=== PATIENT | female | born 1965 | race African-American/Black ===

== ENCOUNTER 2019-10-12 23:19 | Emergency (ER) | payer OTHER, SELFPAY ==
[2019-10-12 23:21] VITALS: BP 161/92; PULSE 100; RESP 16; TEMP 36.2; O2SAT 100
[2019-10-13 00:07] VITALS: BP 168/92; PULSE 87; RESP 18; TEMP 36.8; O2SAT 98
--- NOTE | 2019-10-13 00:53 | ED.GENADULT ---
HPI - General Adult General Chief complaint: Wound/Laceration Stated complaint: boil Time Seen by Provider: 10/13/19 00:21 Source: patient Mode of arrival: ambulatory Limitations: no limitations History of Present Illness HPI narrative: Patient is here for evaluation of a abscess that is formed on her mons pubis. She said it started several days ago she has been doing sitz bath's at home and has gotten it to open and drain a little bit but it is become quite painful. She denies any fever she does complain of some nausea. Onset (ago): day(s) Location: genitals Radiation: non-radiation Severity: moderate Quality: sharp Pain Consistency: constant Relieving factors: none Associated symptoms: nausea/vomiting Treatments prior to arrival: NSAID Related Data Allergies Allergy/AdvReac Type Severity Reaction Status Date / Time No Known Allergies Allergy Unknown Verified 11/01/15 14:15 Review of Systems Review of Systems: All systems reviewed & are unremarkable except as noted in HPI and below PMFSH Social History Social History Gender identity (if verbalized by the patient): Female Exam Const: General: no acute distress and alert Orientation/consciousness: patient oriented x3 Resp: Effort & Inspection: normal respiratory effort Auscultation: clear to auscultation bilaterally Cardio: Rate: regular rate Rhythm: regular rhythm GI: GI Palp: Yes Soft to palpation Skin: General skin exam: normal color Lesions: lesion noted (firm abscess on the mons pubis, there is an open area in the center) Full body images: 1. firm abscess, open in center with mild fluctuance. Unable to express any material. Neuro: General: patient oriented x3 and moves all extremities Extrem: General: normal to inspection Course Course Emergency Course: Give patient dose of antibiotics here tonight and asked that she start the course tomorrow morning approximately 9 AM. She is to follow-up with her upsetter for further I&D, there is packing in place and she was given instructions for care. Vital Signs Vital signs: Vital Signs Temperature 36.2 C L 10/12/19 23:21 Pulse Rate 100 10/12/19 23:21 Respiratory Rate 16 10/12/19 23:21 Blood Pressure 161/92 H 10/12/19 23:21 Pulse Oximetry 100 10/12/19 23:21 Temperature 36.8 C 10/13/19 00:07 Pulse Rate 87 10/13/19 00:07 Respiratory Rate 18 10/13/19 00:07 Blood Pressure 168/92 H 10/13/19 00:07 Pulse Oximetry 98 10/13/19 00:07 Procedures Abscess I/D mons pubis: Date of Incision: 10/13/19 Time of Incision: 01:45 Sedation/analgesia: other (tramadol) Local Anesthetic: none (LET) Technique: incised with #11 blade Amount of fluid expressed (mL): 1 Packing used?: iodoform (1/4 in, approx 3 in) I&D Results: Pus and Blood Complications: pain Medical Decision Making Vital Signs Vital Signs: Vital Signs Temperature 36.2 C L 10/12/19 23:21 Pulse Rate 100 10/12/19 23:21 Respiratory Rate 16 10/12/19 23:21 Blood Pressure 161/92 H 10/12/19 23:21 Pulse Oximetry 100 10/12/19 23:21 Temperature 36.8 C 10/13/19 00:07 Pulse Rate 87 10/13/19 00:07 Respiratory Rate 18 10/13/19 00:07 Blood Pressure 168/92 H 10/13/19 00:07 Pulse Oximetry 98 10/13/19 00:07 Discharge Plan Discharge Clinical Impression: Abscess Patient Disposition: Home, Self-Care Condition: Stable Instructions: Antibiotic Form, Abscess (ED) Additional Instructions: May pull packing out a little bit at a time every day until it comes out. Apply warm wet compresses to the area several times a day. Complete the antibiotics as prescribed, start the prescription in the morning. Take Ibuprofen or Tylenol for pain. Follow-up with your upsetter for further care and possible referral to a surgeon. Prescriptions: New sulfamethoxazole-trimethop
[2019-10-13] MEDS: TRAMADOL HCL 50 MG TABLET PO (01:14)
[2019-10-13 01:29] VITALS: BP 166/84; PULSE 86; RESP 18; O2SAT 100
[2019-10-13 02:24] VITALS: BP 154/85; PULSE 81; RESP 16; TEMP 36.9; O2SAT 100
== END 2019-10-13 02:25 | disposition home or self-care (01) ==
PROVIDERS: Emergency Provider Emergency Medicine; PCP Family Medicine
DX: L02.215 Cutaneous abscess of perineum (principal)
CPT/HCPCS: 56405; 99283; A9270

== ENCOUNTER 2021-03-27 08:59 | Emergency (ER) | payer OTHER, SELFPAY ==
[2021-03-27 09:03] VITALS: BP 166/106; PULSE 96; RESP 20; TEMP 36.7; O2SAT 100
[2021-03-27 09:07] LABS: Glucose Point of Care 236 mg/dl (65-105)
[2021-03-27 09:20] LABS: Basophils Percent Auto 0.5 % (0.2-1.2); Eosinophils Absolute Auto 0.1 K/mm3 (0-0.3); Eosinophils Percent Auto 0.9 % (0-4.4); Hematocrit 37.6 % (37.0-47.0); Immature Granulocyte Absolute 0.02 K/mm3 (0.00-0.031); Immature Granulocyte Percent A 0.4 % (0-0.5); Lymphocytes Absolute Auto 1.69 K/mm3 (0.9-3.2); Mean Corpuscular HGB Conc 31.9 g/dl (32-36); Mean Corpuscular Hemoglobin 26.5 pg (26-34); Mean Corpuscular Volume 83.2 fl (80-100); Mean Platelet Volume 9.9 fl (7.4-10.4); Monocytes Absolute Auto 0.4 K/mm3 (0.1-0.6); Monocytes Percent Auto 6.9 % (2.6-8.5); Neutrophils Absolute Auto 3.5 K/mm3 (1.3-6.7); Neutrophils Percent Auto 61.3 % (45.5-73.1); Platelet Count Result 256 k/mm3 (150-375); Red Blood Count 4.52 M/mm3 (4.2-5.4); Red Cell Distribution Width 12.9 % (11.5-14.5); White Blood Count 5.6 K/mm3 (4.5-10.0)
[2021-03-27 09:40] LABS: Add Urine Microscopic? YES; Appearance Urine Clear (Clear); Bilirubin Urine Negative (Negative); Blood Urine Negative (Negative); Color Urine Yellow (Yellow); Glucose Urine UA 3+ mg/dL (Negative); Ketones Urine Negative (Negative); Leukocyte Esterase Ur Negative LEU/UL (Negative); Mucus Urine Rare /lpf; Nitrate Urine Negative (Negative); Protein Urine Negative (Negative); RBC Urine 0-2 /hpf (0-2); Specific Grav Ur 1.013 (1.001-1.035); Urobilinogen Urine Negative mg/dL (<2.0); WBC Urine 0-3 /hpf
[2021-03-27 09:41] LABS: Alanine Aminotransferase 12 U/L (4-35); Albumin Level 4.4 g/dL (3.5-5.1); Alkaline Phosphatase 51 U/L (38-126); Anion Gap 9 mmol/L (8-16); Aspartate Amino Transferase 18 U/L (14-36); Bilirubin,Total 0.4 mg/dL (0.2-1.3); Blood Urea Nitrogen 14 mg/dL (7-17); Calcium 9.8 mg/dL (8.4-10.2); Carbon Dioxide 28 mmol/L (22-30); Chloride 100 mmol/L (98-107); Estimated CRCL calculation 85 ml/min; Estimated Glomerular Filt Rate > 60; Glucose 242 mg/dL (65-110); Sodium 137 mmol/L (137-145)
--- NOTE | 2021-03-27 10:04 | ED.RECABL ---
HPI - Recheck/Abnormal Lab/Rx General Chief Complaint: Recheck/Abnormal Lab/Rx Stated Complaint: high blood sugar Time Seen by Provider: 03/27/21 09:37 Source: patient Mode of arrival: ambulatory Limitations: no limitations History of Present Illness HPI narrative: Patient is a 56 year old female who presents with complaints of mild nausea and elevated glucose. Patient reports history of diabetes. She takes Metformin 1000 mg twice daily recently taken off of Jardiance and started on Ozempic approximately 3 weeks ago. She reports blood sugar of over 400 at home. She reports medication compliant. She denies chest pain or shortness of breath. Patient reports elevated glucose is what brought her to the ED. She denies all other complaints at this time. Related Data Home Medications Medication Instructions Recorded Confirmed lisinopril 03/27/21 metformin mg PO 03/27/21 njunvgco-jya-sdulhky fumarate ml PO 03/27/21 [Multi Vitamin] semaglutide [Ozempic] 0.25 mg SUBCUT WEEKLY 03/27/21 03/27/21 Allergies Allergy/AdvReac Type Severity Reaction Status Date / Time No Known Allergies Allergy Unknown Verified 03/27/21 09:07 Review of Systems Review of Systems: CONSTITUTIONAL: Denies fever, chills, or sweats. EYES: Denies visual changes, redness, or discharge. ENT: Denies rhinorrhea, congestion, sore throat, or otalgia. CARDIOVASCULAR: Denies chest pain, palpitations, or edema. RESPIRATORY: Denies cough or dyspnea. GASTROINTESTINAL: Denies abdominal pain, reports mild nausea GENITOURINARY: Denies dysuria or hematuria. SKIN: Denies rash or itching. MUSCULOSKELETAL: Denies back pain, joint pain, or myalgia. NEUROLOGIC: Denies headache, numbness, dizziness, or weakness. PSYCHIATRIC: Denies anxiety or depression. [facility] Past Medical History Medical History (Updated 03/27/21 @ 11:25 by MANJEET Carson) Diabetes HTN (hypertension) Surgical History Surgical History (Updated 03/27/21 @ 10:12 by MANJEET Carson) Hx of cholecystectomy Family History Family History (Updated 03/27/21 @ 10:13 by MANJEET Carson) Other Diabetes mellitus Hypertension Social History Social History (Updated 03/27/21 @ 10:13 by MANJEET aCrson) Smoking status: Never smoker Alcohol intake: never Substance use: never Living arrangements: with family Gender identity (if verbalized by the patient): Female Comments At the time of signature, I have reviewed and agree with nursing past medical, surgical, social, and family history unless otherwise noted. Please see nursing chart for further information. There is no relevant family history pertinent to the presenting complaint. Exam Narrative: GENERAL: Well-appearing, well-nourished, and in no acute distress. HEAD: Normocephalic, atraumatic. EYES: EOMI. No redness or drainage. Conjunctiva are normal. ENT: Mucous membranes pink and moist. NECK: AROM. Supple. No lymphadenopathy. CHEST: No respiratory distress. Clear to auscultation. HEART: Regular rate and rhythm. No murmur appreciated. Normal peripheral pulses. GI: Soft, nontender without rebound, or guarding. No distention. Bowel sounds normal in all quadrants. MUSCULOSKELETAL: No bony tenderness. EXTREMITIES: Normal range of motion. No edema. SKIN: Warm, dry, no rash. NEURO: No focal deficits. Alert and oriented x3. Gait steady. PSYCH: Normal affect. No signs of depression or anxiety. Course Vital Signs Vital signs: Vital Signs Temperature 36.7 C 03/27/21 09:03 Pulse Rate 96 03/27/21 09:03 Respiratory Rate 20 03/27/21 09:03 Blood Pressure 166/106 H 03/27/21 09:03 Pulse Oximetry 100 03/27/21 09:03 Temperature 36.7 C 03/27/21 09:03 Pulse Rate 90 03/27/21 10:31 Respiratory Rate 19 03/27/21 10:31 Blood Pressure 147/90 H 03/27/21 10:31 Pulse Oximetry 100 03/27/21 10:31 MDM - Recheck/Abnormal Lab/Rx MDM Narrative Medical decision making orestes
[2021-03-27] MEDS: ONDANSETRON INJ 4 MG/2 ML VIAL IV PUSH (10:09)
[2021-03-27] MEDS: FAMOTIDINE 20 MG/2 ML VIAL IV PUSH (10:09)
[2021-03-27 10:10] VITALS: BP 139/78; PULSE 91; RESP 17; O2SAT 100
[2021-03-27] MEDS: SODIUM CHLORIDE 0.9% IV 1,000 ML 999 ML IV CONT (10:10)
[2021-03-27] MEDS: ACETAMINOPHEN 500 MG TABLET 1000 MG PO (10:18)
[2021-03-27 10:31] VITALS: BP 147/90; PULSE 90; RESP 19; O2SAT 100
[2021-03-27 11:22] LABS: Glucose Point of Care 179 mg/dl (65-105)
[2021-03-27 11:34] VITALS: BP 147/77; PULSE 91; RESP 17; O2SAT 100
== END 2021-03-27 11:39 | disposition home or self-care (01) ==
PROVIDERS: Emergency Medicine; Emergency Provider Nurse Practitioner; PCP Family Medicine
DX: E11.65 Type 2 diabetes mellitus with hyperglycemia (principal); I10 Essential (primary) hypertension; Z79.84 Long term (current) use of oral hypoglycemic drugs; Z79.899 Other long term (current) drug therapy
CPT/HCPCS: 36415; 80053; 81001; 82948; 85025; 96361; 96374; 96375; 99284; A9270; J2405; J7030

== ENCOUNTER 2022-07-14 16:11 | Emergency (ER) | payer OTHER, SELFPAY ==
--- NOTE | ~2022-07-14 | XR_ITS ---
EXAMINATION: XR chest 1V portable Exam Date/Time: 07/14/2022 16:55 RANGE AIDE HISTORY: cough, fever, BODY ACHES Comparison: 01/11/2021. RESULT: Lines, tubes, and devices: None. Lungs and pleura: Minimal bibasilar atelectasis. No focal consolidation. Cardiomediastinal silhouette: Stable. Other: No acute osseous or upper abdominal finding. IMPRESSION: No acute cardiopulmonary process. Reviewed, dictated and finalized at location K. E AIDE
[2022-07-14 16:17] VITALS: BP 185/87; PULSE 109; RESP 16; TEMP 37.3; O2SAT 100
[2022-07-14] MEDS: ACETAMINOPHEN 500 MG TABLET 1000 MG PO (17:06)
[2022-07-14 17:20] LABS: Influenza A QL RT-PCR Positive (Negative); Influenza B QL RT-PCR Negative (Negative); SARS-CoV-2 RNA PCR Negative
--- NOTE | 2022-07-14 17:34 | ED.URI ---
HPI - URI/Sore Throat General Chief Complaint: Upper Respiratory Infection <Leonila Ba PA-C - Last Filed: 07/14/22 17:38> Stated Complaint: possible influenza <MONICA Zavala Last Filed: 07/14/22 17:38> Time Seen by Provider: 07/14/22 16:34 <MONICA Zavala Last Filed: 07/14/22 17:38> Source: patient <MONICA Zavala Last Filed: 07/14/22 17:38> Mode of arrival: ambulatory <MONICA Zavala Last Filed: 07/14/22 17:38> Limitations: no limitations <MONICA Zavala Last Filed: 07/14/22 17:38> History of Present Illness HPI Narrative: This is a 57-year-old female who presents to the emergency department for cold symptoms present since yesterday. Reports fever, myalgias, malaise, cough, congestion, and sore throat. She is influenza vaccinated. Denies shortness of breath. <MONICA Zavala Last Filed: 07/14/22 17:38> Related Data Home Medications: Home Medications Medication Instructions Recorded Confirmed lisinopril 10 mg tablet 03/27/21 metformin 500 mg tablet,extended mg PO 03/27/21 release 24 hr multivitamin with minerals-iron ml PO 03/27/21 fumarate 9 mg iron/15 mL oral liquid (Multi Vitamin) semaglutide 0.25 mg or 0.5 mg (2 0.25 mg subcut WEEKLY 03/27/21 03/27/21 mg/1.5 mL) subcutaneous pen injector (Ozempic) <MONICA Zavala Last Filed: 07/14/22 17:38> Allergies/Adverse Reactions: Allergies Allergy/AdvReac Type Severity Reaction Status Date / Time No Known Allergies Allergy Unknown Verified 07/14/22 17:07 <MONICA Zavala Last Filed: 07/14/22 17:38> Review of Systems Review of Systems: CONSTITUTIONAL: Reports fever ENT: Reports rhinorrhea, congestion, sore throat RESPIRATORY: Reports cough. Denies dyspnea. <Leonila Ba PA-C - Last Filed: 07/14/22 17:38> All systems reviewed & are unremarkable except as noted in HPI and below <Leonila Ba PA-C - Last Filed: 07/14/22 17:38> PMFSH Past Medical History Medical History: Medical History (Updated 07/14/22 @ 17:37 by Leonila Ba PA-C) Diabetes HTN (hypertension) <Leonila Ba PA-C - Last Filed: 07/14/22 17:38> Surgical History Surgical History: Surgical History (Updated 03/27/21 @ 10:12 by Amber Justice, [employer]) Hx of cholecystectomy <Leonila Ba PA-C - Last Filed: 07/14/22 17:38> Family History Family History: Family History (Updated 03/27/21 @ 10:13 by Amber Justice, [employer]) Other Diabetes mellitus Hypertension <Leonila Ba PA-C - Last Filed: 07/14/22 17:38> Social History Social History: Social History (Updated 03/27/21 @ 10:13 by Amber Justice, [employer]) Smoking status: Never smoker Alcohol intake: never Substance use: never Gender identity (if verbalized by the patient): Female <Leonila Ba PA-C - Last Filed: 07/14/22 17:38> Exam Narrative: GENERAL: Well-appearing, well-nourished, and in no acute distress. HEAD: Normocephalic, atraumatic. EYES: EOMI. ENT: Nares clear, no rhinorrhea or epistaxis. Mucous membranes moist. Oropharynx without tonsillar hypertrophy exudate or other lesions. Bilateral TMs pearly dwyer non-bulging NECK: Supple. No adenopathy or masses. CHEST: Clear to auscultation. No respiratory distress. No wheezes rales or rhonchi HEART: Regular rate and rhythm. No murmur heard. Normal peripheral pulses. EXTREMITIES: Normal range of motion. No edema. SKIN: Warm, dry, no rash. NEURO: No focal deficits. Alert and oriented x3. PSYCH: Normal mood and affect <Leonila Ba PA-C - Last Filed: 07/14/22 17:38> Course CONTINUOUS IMPROVEMENT SPECIALIST/PA Physician Supervision For this patient encounter, I reviewed the CONTINUOUS IMPROVEMENT SPECIALIST or PA documentation, treatment plan, and medical decision making <Deon Adkins MD - Last Filed: 07/14/22 19:42> Vital Signs Vital signs: Vital Signs Temperature 99.1 F 07/14/22 16:17 Pulse Ra
== END 2022-07-14 17:40 | disposition home or self-care (01) ==
PROVIDERS: Emergency Provider Emergency Medicine; PCP Family Medicine
DX: J10.1 Influenza due to other identified influenza virus with other respiratory manifestations (principal); Z20.822 Contact with and (suspected) exposure to COVID-19; E11.9 Type 2 diabetes mellitus without complications; I10 Essential (primary) hypertension; Z79.84 Long term (current) use of oral hypoglycemic drugs
CPT/HCPCS: 71045; 87636; 99283; A9270

== ENCOUNTER 2022-09-06 12:05 | Outpatient (CLI) | payer OTHER, SELFPAY ==
[2022-09-06 12:28] LABS: Basophils Percent Auto 0.6 % (0.2-1.2); Eosinophils Absolute Auto 0.1 K/mm3 (0-0.3); Eosinophils Percent Auto 1.4 % (0-4.4); Hematocrit 37.5 % (37.0-47.0); Immature Granulocyte Absolute 0.03 K/mm3 (0.00-0.031); Immature Granulocyte Percent A 0.4 % (0-0.5); Lymphocytes Absolute Auto 2.29 K/mm3 (0.9-3.2); Lymphocytes Percent Auto 31.9 % (18.3-44.2); Mean Corpuscular Hemoglobin 26.7 pg (26-34); Mean Corpuscular Volume 83.5 fl (80-100); Mean Platelet Volume 9.4 fl (7.4-10.4); Monocytes Absolute Auto 0.5 K/mm3 (0.1-0.6); Monocytes Percent Auto 6.4 % (2.6-8.5); Neutrophils Absolute Auto 4.3 K/mm3 (1.3-6.7); Neutrophils Percent Auto 59.3 % (45.5-73.1); Platelet Count Result 274 k/mm3 (150-375); Red Blood Count 4.49 M/mm3 (4.2-5.4); Red Cell Distribution Width 12.9 % (11.5-14.5); White Blood Count 7.2 K/mm3 (4.5-10.0)
[2022-09-06 12:41] LABS: Hemoglobin A1C 12.3 % (<5.7)
[2022-09-06 13:08] LABS: Creatinine Urine 71.5 mg/dL
[2022-09-06 13:47] LABS: MALB Creatinine Ratio < 8.4 mg/g (0-30); Microalbumin Urine Random < 6.0 mg/L (0-16.7)
== END 2022-09-06 12:06 | disposition home or self-care (01) ==
LOC: ANHLAB 12:11
PROVIDERS: PCP Family Medicine
DX: Z00.00 Encounter for general adult medical examination without abnormal findings (principal); E66.9 Obesity, unspecified; Z68.34 Body mass index [BMI] 34.0-34.9, adult
CPT/HCPCS: 36415; 82043; 83036; 85025

== ENCOUNTER 2022-12-20 12:27 | Outpatient (CLI) | payer OTHER, SELFPAY ==
--- NOTE | ~2022-12-20 | MMUS_ITS ---
EXAMINATION: MM diagnostic kaya BI w alexandra, US breast BI complete HISTORY: Left lateral breast pain, shortness TECHNIQUE: Bilateral full field and spot ML, MLO and CC 3-D tomosynthesis images were performed and s ynthetic 2-D images were generated. Magnification views of upper outer quadrant left breast CAD chris sis was submitted and interpreted. High resolution complete bilateral breast ultrasound examination i ncluding all 4 quadrants and subareolar areas was performed. COMPARISON: None BREAST PARENCHYMAL COMPOSITION: There are scattered areas of fibroglandular density. FINDINGS: MAMMOGRAPHIC FINDINGS: There are occasional bilateral benign calcifications. No malignant calcification is noted. There is an approximately 10 x 14 mm circumscribed mass with calcifications typical of fibroadenoma. No suspicious mass or architectural distortion, microcalcifications, skin thickening or retraction of either breast is noted otherwise. ULTRASOUND: Right breast: No suspicious mass or shadowing or other significant sonographic abnormality Left breast: 2:00 4.5 cm from nipple: Parallel circumscribed 4.2 x 4.1 x 5.6 mm complex lesion, without internal v ascularity or posterior shadowing, probably benign 9:00 4 cm from nipple: Parallel circumscribed approximately 6.8 x 14 mm hypoechoic solid lesion with internal calcifications, no internal vascularity, no suspicious shadowing. 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 No suspicious mass or shadowing of the left breast is noted otherwise. IMPRESSION: 1. Probably benign left breast complex mass at 2:00 4.5 cm from nipple 2. 6 month follow-up ultrasound of left breast at 2:00 4.5 cm from nipple is recommended BI-RADS category 3, probably benign findings. Reviewed, dictated and finalized at location A. IMPRESSION: 1. Probably benign left breast complex mass at 2:00 4.5 cm from nipple 2. 6 month follow-up ultrasound of left breast at 2:00 4.5 cm from nipple is re commended BI-RADS category 3, probably benign findings.
== END 2022-12-20 12:28 | disposition home or self-care (01) ==
LOC: ANHIMG 12:29
PROVIDERS: PCP Family Medicine; Visit Provider Family Medicine
DX: N64.4 Mastodynia (principal); R92.8 Other abnormal and inconclusive findings on diagnostic imaging of breast
CPT/HCPCS: 76641; 77062; 77066; G0279

== ENCOUNTER 2023-01-22 02:55 | Emergency (ER) | payer OTHER, SELFPAY ==
[2023-01-22] VITALS (21 sets, daily range): BP systolic 156–226; BP diastolic 70–98; PULSE 106–132; RESP 15–27; O2SAT 99–100
--- NOTE | ~2023-01-22 | XR_ITS ---
Clinical Indication: Chest pain PA and lateral views of the chest: Comparison: 07/14/2022 Findings: The lungs are clear, without evidence of focal consolidation or pleural effusion. Cardiome diastinal silhouette is within normal limits. Bones and soft tissues are unremarkable. Impression: Normal chest. Reviewed, dictated and finalized at location . Impression: Normal chest.
--- NOTE | ~2023-01-22 | CT_ITS ---
Clinical Indication: Chest pain CT Scan of the Chest with Contrast: Technique: Contiguous sections were acquired throughout the chest after intravenous administration of 100 cc of Omnipaque 350. Dose reduction technique was used on this scan by utilizing automated expos ure control and iterative reconstruction technique. The dose-length product (DLP) was 593.86 mGy-cm. Findings: There is no evidence of any significant mediastinal, hilar or axillary lymphadenopathy. There is no f illing defect in the pulmonary arterial tree to suggest pulmonary embolus. There is no evidence of ao rtic dissection or aneurysm. There is no evidence of pleural or pericardial effusion. The lungs are clear. No pulmonary nodules or infiltrates are noted. Images through the upper abdomen reveal no abnormalities. Impression: No evidence of pulmonary embolus, aortic dissection, or aortic aneurysm. Clear lungs. Reviewed, dictated and finalized at [facility]. Impression: No evidence of pulmonary embolus, aortic dissection, or aortic aneurysm. Clear lungs.
--- NOTE | ~2023-01-22 | CT_ITS ---
Non-contrast Head CT History: Headache Technique: Axial non-contrast imaging of the brain was performed. Dose reduction technique was used on this scan by utilizing automated exposure control and iterative reconstruction technique. The dose -length product (DLP) was 605.33 mGy-cm. Findings: There is no evidence of intracranial hemorrhage, mass lesion, or acute infarct. Brain par enchyma appears normal. The ventricles and subarachnoid spaces are normal in size. The calvarium ap pears normal. The visualized paranasal sinuses and mastoid air cells are clear. Impression: No significant abnormality seen. Reviewed, dictated and finalized at location . Impression: No significant abnormality seen.
--- NOTE | 2023-01-22 02:56 | ECG_ITS ---
Measurements Intervals [place] Rate: 126 P: 3 [place]: 120 QRS: 60 QRSD: 87 T: 29 QT: 311 QTc: 451 Interpretive Statements SINUS TACHYCARDIA BORDERLINE ST ABNORMALITY- ANTEROLATERAL LEADS BASELINE ARTIFACT- I, II, III, AVR, AVL, AVF, V1-V3 ABNORMAL ECG NO PREVIOUS ECG AVAILABLE FOR COMPARISON Electronically Signed On 01-22-2023 6:47:33 CDT by Marcelo Hoover D.O.
--- NOTE | 2023-01-22 03:08 | ED.CHESTPAIN ---
HPI - Chest Pain General Chief Complaint: Chest Pain Stated Complaint: chest pain/palpitations Time Seen by Provider: 01/22/23 02:58 History of Present Illness HPI narrative: Pt is a 57 year old F w/ hx of hypertension, diabetes, GERD presenting with chest pain. Pt states she has had intermittent left sided chest pain for the last few days. States it has been radiating down her left arm and left shoulder since last night. She checked her blood pressure and heart rate at home and both were elevated so she came in for evaluation. States her legs have been swollen for the last two weeks, left more so than the right. Reports exertional dyspnea for several weeks. Denies fevers/chills, vision changes, numbness/weakness, palpitations, abdominal pain, n/v/d, dysuria. Related Data Home Medications Medication Instructions Recorded Confirmed lisinopril 10 mg tablet 03/27/21 metformin 500 mg tablet,extended mg PO 03/27/21 release 24 hr multivitamin with minerals-iron ml PO 03/27/21 fumarate 9 mg iron/15 mL oral liquid (Multi Vitamin) semaglutide 0.25 mg or 0.5 mg (2 0.25 mg subcut WEEKLY 03/27/21 03/27/21 mg/1.5 mL) subcutaneous pen injector (Ozempic) Allergies Allergy/AdvReac Type Severity Reaction Status Date / Time No Known Allergies Allergy Unknown Verified 01/22/23 03:33 Review of Systems Review of Systems: All systems reviewed & are unremarkable except as noted in HPI and below PMFSH Past Medical History Medical History Diabetes HTN (hypertension) Surgical History Surgical History Hx of cholecystectomy Family History Family History Other Diabetes mellitus Hypertension Social History Social History Smoking status: Never smoker Alcohol intake: never Substance use: never Living arrangements: with family Gender identity (if verbalized by the patient): Female Exam Narrative: GENERAL: Well-appearing, well-nourished, and in no acute distress. HEAD: Normocephalic, atraumatic. EYES: PERRLA and EOMI. ENT: Nares clear, no rhinorrhea or epistaxis. Mucous membranes moist. NECK: Supple. CHEST: Clear to auscultation. No respiratory distress. HEART: tachycardic, regular rhythm. No murmur heard. Normal peripheral pulses. ABDOMEN: Soft, nontender, nondistended. EXTREMITIES: Normal range of motion. trace edema bilateral ankles SKIN: Warm, dry, no rash. NEURO: No focal deficits. Alert and oriented x3. PSYCH: Normal mood and affect. Course Vital Signs Vital signs: Vital Signs Pulse Rate 132 H 01/22/23 03:05 Respiratory Rate 16 01/22/23 03:05 Blood Pressure 226/96 H 01/22/23 03:05 Pulse Oximetry 99 01/22/23 03:05 Oxygen Delivery Room Air 01/22/23 03:05 Pulse Rate 106 H 01/22/23 07:09 Respiratory Rate 15 01/22/23 07:09 Blood Pressure 160/88 H 01/22/23 07:09 Pulse Oximetry 100 01/22/23 07:09 Oxygen Delivery Room Air 01/22/23 03:05 MDM - Chest Pain MDM Narrative Medical decision making narrative: Pt is a 57yo F presenting with chest pain and headache. She is hypertensive on arrival in 220s/90s as well as tachycardic in the 120-130s. Saturating well on room air. EKG per my interpretation shows sinus tachycardia, normal axis and intervals, nonspecific ST changes in precordial leads, no ST elevations. Plan for CTA chest, labs. CT brain shows no acute abnormalities. CTA chest shows no pulmonary embolism. Trop is undetectable. Blood work is otherwise noncontributory. On re-evaluation, pt states her chest pain has resolved. Complains of a persistent mild headache. Plan for another liter, PO tylenol, delta troponin. Pt is only on lisinopril at home - she remains hypertensive in the 160s/80s. Based on chart review, pt has b
[2023-01-22 03:16] LABS: Basophils Percent Auto 0.4 % (0.2-1.2); Eosinophils Absolute Auto 0.1 K/mm3 (0-0.3); Eosinophils Percent Auto 0.8 % (0-4.4); Hematocrit 31.9 % (37.0-47.0); Hemoglobin 10.4 g/dL (12.0-15.0); Immature Granulocyte Absolute 0.02 K/mm3 (0.00-0.031); Immature Granulocyte Percent A 0.2 % (0-0.5); Lymphocytes Percent Auto 18.8 % (18.3-44.2); Mean Corpuscular HGB Conc 32.6 g/dl (32-36); Mean Corpuscular Volume 82.9 fl (80-100); Mean Platelet Volume 9.5 fl (7.4-10.4); Monocytes Absolute Auto 0.9 K/mm3 (0.1-0.6); Monocytes Percent Auto 10.5 % (2.6-8.5); Neutrophils Absolute Auto 5.9 K/mm3 (1.3-6.7); Neutrophils Percent Auto 69.3 % (45.5-73.1); Platelet Count Result 230 k/mm3 (150-375); Red Blood Count 3.85 M/mm3 (4.2-5.4); Red Cell Distribution Width 12.4 % (11.5-14.5); White Blood Count 8.5 K/mm3 (4.5-10.0)
[2023-01-22] MEDS: ASPIRIN 81 MG CHEWABLE TABLET 324 MG PO (03:22)
[2023-01-22] MEDS: SODIUM CHLORIDE 0.9% IV 1,000 ML 999 ML IV CONT ×2 (03:25→06:14)
[2023-01-22 03:27] LABS: INR 0.9; Prothrombin Time 12.9 Seconds (11.1-14.7)
[2023-01-22 03:29] LABS: Alanine Aminotransferase 21 U/L (6-35); Albumin Level 4.2 g/dL (3.5-5.1); Alkaline Phosphatase 64 U/L (38-126); Anion Gap 8 mmol/L (8-16); Aspartate Amino Transferase 27 U/L (14-36); Bilirubin,Total 0.4 mg/dL (0.2-1.3); Blood Urea Nitrogen 14 mg/dL (7-17); Calcium 9.1 mg/dL (8.4-10.2); Carbon Dioxide 27 mmol/L (22-30); Chloride 102 mmol/L (98-107); Estimated CRCL calculation 106 ml/min; Estimated Glomerular Filt Rate > 60; Glucose 242 mg/dL (65-110); Lipase 145 U/L (23-300); Potassium 4.2 mmol/L (3.4-5.0); Sodium 137 mmol/L (137-145)
[2023-01-22 03:43] LABS: Troponin I < 0.012 ng/mL (0.000-0.034)
[2023-01-22 04:00] LABS: NT Pro B Type Natriuretic Pept 93 pg/mL (19.9-100)
[2023-01-22] MEDS: METOPROLOL TARTRATE INJ 5 MG/5 ML VIAL IV PUSH (06:18)
[2023-01-22] MEDS: ACETAMINOPHEN 500 MG TABLET 1000 MG PO (06:18)
[2023-01-22 06:37] LABS: Troponin I < 0.012 ng/mL (0.000-0.034)
== END 2023-01-22 07:11 | disposition home or self-care (01) ==
PROVIDERS: Emergency Provider Emergency Medicine; PCP Family Medicine
DX: R07.9 Chest pain, unspecified (principal); I10 Essential (primary) hypertension; R51.9 Headache, unspecified; E11.9 Type 2 diabetes mellitus without complications; K21.9 Gastro-esophageal reflux disease without esophagitis; Z90.49 Acquired absence of other specified parts of digestive tract; Z79.85 Long-term (current) use of injectable non-insulin antidiabetic drugs; Z79.84 Long term (current) use of oral hypoglycemic drugs; R00.0 Tachycardia, unspecified; R94.31 Abnormal electrocardiogram [ECG] [EKG]
CPT/HCPCS: 36415; 70450; 71046; 71275; 80053; 83690; 83880; 84484; 85025; 85610; 85730; 93005; 96361; 96374; 99284; A9270; J7030; Q9967

== ENCOUNTER 2023-03-15 09:41 | Outpatient (CLI) | payer OTHER, SELFPAY ==
[2023-03-15 11:15] LABS: Thyroid Stimulating Hormone Reflex < 0.015 uIU/mL (0.465-4.68)
[2023-03-15 12:43] LABS: Free T4 Free Thyroxine Reflex 4.16 ng/dL (0.78-2.19)
== END 2023-03-15 09:42 | disposition home or self-care (01) ==
PROVIDERS: PCP Family Medicine; Visit Provider Internal Medicine
DX: R00.0 Tachycardia, unspecified (principal)
CPT/HCPCS: 36415; 84439; 84443

== ENCOUNTER 2023-04-12 13:33 | Outpatient (CLI) | payer OTHER, SELFPAY ==
--- NOTE | 2023-04-12 | ECHO_ITS ---
Patient Info Name: Tete Kincaid Age: 58 years : 1965 Gender: Female Ht: 63 in Wt: 185 lbs BSA: 1.96 m2 HR: 107 bpm BP: 168 / 87 mmHg Heart Rhythm: Sinus Rhythm Technical Quality: Fair Exam Date: 04/12/2023 1:42 PM Exam Location: [facility] Patient Status: Outpatient Admit Date: 04/12/2023 Staff Ordering Physician: Mir Floyd MD (see/lobito) Shadow Graph Weight Operator: Ana Tovar RDCS Attending Provider: Mir Floyd MD (see/lobito) Referring Physician: Everett BO; Exam Type: CA echo dop color flow w con Study Info Indications R00.0 - Tachycardia, unspecified Complete two-dimensional, color flow and Doppler transthoracic echocardiogram is performed with contrast to opacify the left ventricle and to improve the deliniation of the left ventricle endocardial borders. Contrast/Agitated Saline Contrast/Ag. Saline: Definity Amount: 3.00 ml Administered By: Ana Tovar RDCS New IV Access: Antecubital Space and Right Site Condition: Site dressing applied, IV removed and No extravasation Summary 1. Technically challenging apical window/definity contrast injected to improve image. 2. Normal left ventricular size and hyperdynamic systolic contractility. 3. No valvular dysfunction. 4. Grade 1 diastolic noncompliance. Left Ventricle Left ventricular chamber dimension is normal. Left ventricular systolic function is hyperdynamic, estimated at >70%. The left ventricular diastolic function is grade I diastolic dysfunction. Right Ventricle Right ventricular chamber dimension is normal. Left Atria Left atrial chamber dimension is normal. Right Atria Right atrial chamber dimension is normal. Aortic Valve The aortic valve is trileaflet. There is mild aortic valve sclerosis. Pulmonic Valve The pulmonic valve is not well visualized. Mitral Valve The mitral valve has normal leaflets. Tricuspid Valve The tricuspid valve leaflets are normal. Pericardium/Pleural The pericardium appears normal. Aorta The aortic root size at the sinus of Valsalva is normal. Left Ventricular Outflow Tract Name Value Normal LVOT 2D LVOT Diameter 2.03 cm LVOT Doppler LVOT Peak Gradient 5 mmHg LVOT Mean Gradient 3 mmHg LVOT VTI 22.26 cm LVOT VTI/AV VTI Ratio 0.83 LVOT Stroke Volume 71.82 ml LVOT CO 7.90 l/min LVOT CI 4.02 L/min/m2 Pulmonic Valve Name Value Normal RVOT Doppler RVOT Peak Gradient 4 mmHg PV Doppler PV Peak Gradient 5 mmHg Mitral Valve Name Value Normal --
[2023-04-12] MEDS: PERFLUTREN LIPID MICROSPHERES 1.5 ML VIAL DILUTED TO 10 ML TOTAL VOLUME IV PUSH (14:45)
--- NOTE | 2023-04-12 15:03 | IVDEFINITY ---
Prior to administration of IV Definity the patient was educated on the risks and benefits of the imaging enhancing agent including potential adverse side effects. The patient verbalized understanding. Allergies were verified. No exclusion criteria were identified and at least one of the following inclusion criteria were met: 1) physician request, 2) patient technically difficult to image (per the [place] [employer]ocardi[employer] guidelines of two or more segments not discernable within the apical view), or 3) questionable left ventricular function. ?
== END 2023-04-12 13:34 | disposition home or self-care (01) ==
LOC: ANHCARD 13:34
PROVIDERS: PCP Family Medicine; Visit Provider Internal Medicine
DX: R00.0 Tachycardia, unspecified (principal)
CPT/HCPCS: C8929; Q9957

== ENCOUNTER 2023-04-19 19:15 | Emergency (ER) | payer OTHER, SELFPAY ==
--- NOTE | 2023-04-19 19:30 | ECG_ITS ---
Measurements Intervals [place] Rate: 136 P: 62 [place]: 136 QRS: 8 QRSD: 90 T: 54 QT: 324 QTc: 488 Interpretive Statements SINUS TACHYCARDIA MODERATE ST DEPRESSION [0.05+ mV ST DEPRESSION] COMPARED TO ECG 01/22/2023 03:03:02 ST (T WAVE) DEVIATION NOW PRESENT Electronically Signed On 04-20-2023 11:35:19 CDT by Julián Hicks MD
[2023-04-19 19:31] VITALS: BP 151/75; PULSE 135; RESP 19; TEMP 36.3; O2SAT 100
[2023-04-19 20:52] LABS: Basophils Percent Auto 0.4 % (0.2-1.2); Eosinophils Percent Auto 0.1 % (0-4.4); Hemoglobin 11.3 g/dL (12.0-15.0); Immature Granulocyte Absolute 0.02 K/mm3 (0.00-0.031); Immature Granulocyte Percent A 0.3 % (0-0.5); Lymphocytes Absolute Auto 1.22 K/mm3 (0.9-3.2); Lymphocytes Percent Auto 15.4 % (18.3-44.2); Mean Corpuscular HGB Conc 31.4 g/dl (32-36); Mean Corpuscular Hemoglobin 24.8 pg (26-34); Mean Corpuscular Volume 79.1 fl (80-100); Mean Platelet Volume 10.4 fl (7.4-10.4); Monocytes Absolute Auto 0.6 K/mm3 (0.1-0.6); Monocytes Percent Auto 7.8 % (2.6-8.5); Platelet Count Result 291 k/mm3 (150-375); Red Blood Count 4.55 M/mm3 (4.2-5.4); Red Cell Distribution Width 13.1 % (11.5-14.5); White Blood Count 7.9 K/mm3 (4.5-10.0)
[2023-04-19 20:53] LABS: Appearance Urine Clear (Clear); Bilirubin Urine Negative (Negative); Blood Urine Negative (Negative); Color Urine Yellow (Yellow); Glucose Urine UA 3+ mg/dL (Negative); Ketones Urine 2+ mg/dL (Negative); Leukocyte Esterase Ur Negative LEU/UL (Negative); Nitrate Urine Negative (Negative); Protein Urine Negative (Negative); Specific Grav Ur 1.029 (1.001-1.035); Urobilinogen Urine 0.2 mg/dL (<2.0)
[2023-04-19 20:59] LABS: Add Urine Microscopic? NO
[2023-04-19 21:04] LABS: Alanine Aminotransferase 46 U/L (6-35); Albumin Level 4.6 g/dL (3.5-5.1); Alkaline Phosphatase 92 U/L (38-126); Anion Gap 11 mmol/L (8-16); Aspartate Amino Transferase 34 U/L (14-36); Bilirubin,Total 0.6 mg/dL (0.2-1.3); Blood Urea Nitrogen 21 mg/dL (7-17); Calcium 10.1 mg/dL (8.4-10.2); Carbon Dioxide 27 mmol/L (22-30); Chloride 95 mmol/L (98-107); Estimated CRCL calculation 75 ml/min; Estimated Glomerular Filt Rate > 60; Glucose 342 mg/dL (65-110); Lipase 46 U/L (23-300); Sodium 133 mmol/L (137-145)
[2023-04-19 21:16] LABS: Troponin I < 0.012 ng/mL (0.000-0.034)
[2023-04-19 22:48] VITALS: BP 187/86; PULSE 137; RESP 19; TEMP 36.2; O2SAT 99
[2023-04-19 23:10] VITALS: BP 187/96; PULSE 131; RESP 26; TEMP 36.3; O2SAT 100
[2023-04-19] MEDS: ONDANSETRON INJ 4 MG/2 ML VIAL IV PUSH (23:16)
[2023-04-19 23:17] VITALS: PULSE 131
[2023-04-19] MEDS: SODIUM CHLORIDE 0.9% IV 1,000 ML 999 ML IV CONT (23:17)
[2023-04-19] MEDS: METOPROLOL TARTRATE 50 MG TAB PO (23:17)
[2023-04-20] VITALS (13 sets, daily range): BP systolic 140–172; BP diastolic 61–95; PULSE 123–129; RESP 15–25; TEMP 36.8; O2SAT 95–100
--- NOTE | 2023-04-20 00:07 | ED.GENADULT ---
HPI - General Adult General Chief complaint: Nausea/Vomiting/Diarrhea Stated complaint: vomiting Time Seen by Provider: 04/19/23 23:02 History of Present Illness HPI narrative: 58-year-old female presented the emergency department for evaluation of nausea vomiting diarrhea and inability to take her meds. Patient states he does have history of tachycardia and does follow-up with Dr. Floyd. Patient does take metoprolol. Patient states she started having some nausea and vomiting night and through Saturday. Patient states she was unable to take her medications on Saturday. Patient takes 50 mg of metoprolol twice daily. Patient states he was having some epigastric burning after the emesis but denies any chest pain. Patient states she has had persistent tachycardia in the 120s for the last 4 weeks. Patient has had follow-up with cardiology for this and cardiology is aware of her tachycardia. Patient has been having her metoprolol increased. Related Data Home Medications Medication Instructions Recorded Confirmed lisinopril 10 mg tablet 03/27/21 metformin 500 mg tablet,extended mg PO 03/27/21 release 24 hr multivitamin with minerals-iron ml PO 03/27/21 fumarate 9 mg iron/15 mL oral liquid (Multi Vitamin) semaglutide 0.25 mg or 0.5 mg (2 0.25 mg subcut WEEKLY 03/27/21 03/27/21 mg/1.5 mL) subcutaneous pen injector (Ozempic) Allergies Allergy/AdvReac Type Severity Reaction Status Date / Time No Known Allergies Allergy Unknown Verified 01/22/23 03:33 Review of Systems Review of Systems: All systems reviewed & are unremarkable except as noted in HPI and below PMFSH Past Medical History Medical History Diabetes HTN (hypertension) Surgical History Surgical History Hx of cholecystectomy Family History Family History Other Diabetes mellitus Hypertension Social History Social History Smoking status: Never smoker Alcohol intake: never Substance use: never Living arrangements: with family Gender identity (if verbalized by the patient): Female Exam Narrative: APPEARANCE: Well appearing, no pain, no distress, well-nourished. HEAD: normocephalic, atraumatic. EYES: PERRLA/EOMI, conjunctivae clear. NOSE: Normal no drainage EARS:TMS clear with good light reflex. THROAT: Pharynx clear, no exudate. NECK: Supple. No adenopathy, no masses. RESPIRATORY: Airway patent, respirations nonlabored. Clear to auscultation bilaterally, no rales, rhonchi, wheezing. CARDIOVASCULAR: Regular rate and rhythm without murmurs rubs or gallops. ABDOMINAL: Epigastric tenderness to palpation MUSCULOSKELETAL: Moves all extremities. Strength/ROM intact, No edema, No calf tenderness. NEURO: Alert. Cranial nerves II through XII intact. Grossly intact SKIN: Warm, dry. Normal Color Course Course Emergency Course: 58-year-old female presented to ED for evaluation of nausea vomiting diarrhea and tachycardia. Patient states that her heart rate has been running in the 120s even prior to the nausea vomiting and inability to keep her medications down. Patient was treated with 50 mg of p.o. metoprolol and IV fluids. Patient's heart rate did improve. Patient had normal orthostatic vitals. Patient denied having any persistent nausea or vomiting. Patient was provided Zofran for nausea control. All question concerns were addressed and patient was comfortable with the plan for discharge and close follow-up with cardiology. Vital Signs Vital signs: Vital Signs Temperature 97.3 F L 04/19/23 19:31 Pulse Rate 135 H 04/19/23 19:31 Respiratory Rate 19 04/19/23 19:31 Blood Pressure 151/75 H 04/19/23 19:31 Pulse Oximetry 100 04/19/23 19:31 Oxygen Delivery Room Air 04/19/23 19
[2023-04-20] MEDS: SODIUM CHLORIDE 0.9% IV 1,000 ML 999 ML IV CONT (00:18)
--- NOTE | 2023-04-20 00:22 | PC.NURSE ---
Patient stated she had a headache and would like some Tylenol. Notified Dr. Adkins who verbally ordered 1,000mg Tylenol PO.
[2023-04-20] MEDS: ACETAMINOPHEN 500 MG TABLET 1000 MG PO (00:37)
[2023-04-20] MEDS: ONDANSETRON INJ 4 MG/2 ML VIAL IV PUSH (02:01)
[2023-04-20] MEDS: METOPROLOL TARTRATE INJ 5 MG/5 ML VIAL IV PUSH (02:02)
== END 2023-04-20 02:21 | disposition home or self-care (01) ==
PROVIDERS: Emergency Provider Emergency Medicine; PCP Family Medicine
DX: R11.2 Nausea with vomiting, unspecified (principal); E11.9 Type 2 diabetes mellitus without complications; I10 Essential (primary) hypertension
CPT/HCPCS: 36415; 80053; 81003; 83690; 84484; 85025; 93005; 96361; 96374; 96375; 99284; A9270; J2405; J7030

== ENCOUNTER 2023-04-21 01:29 | Observation (INO) | payer OTHER, SELFPAY ==
[2023-04-21] VITALS (19 sets, daily range): BP systolic 126–194; BP diastolic 56–91; PULSE 104–124; RESP 18–27; TEMP 35.3–36.9; O2SAT 96–100
--- NOTE | ~2023-04-21 | US_ITS ---
EXAMINATION: US thyroid DATE: 04/22/2023 12:49 INDICATION: Hyperthyroidism TECHNIQUE: Multiple ultrasound images of the thyroid were obtained. COMPARISON: None. FINDINGS: The right thyroid lobe measures 4.5 x 1.5 x 1.4 cm. The left thyroid lobe measures 5.2 x 1.6 x 1.4 c m. Thyroid isthmus measures 4 mm in thickness. No discrete nodules identified. Heterogeneous echogeni city with coarsened echotexture and diffuse increased vascular flow throughout the thyroid on color D oppler suggestive of thyroiditis. IMPRESSION: 1. Diffusely increased vascularity throughout the thyroid with heterogeneous echogenicity and coarsen ed echotexture suggestive of thyroiditis. No discrete thyroid nodules. Reviewed, dictated and finalized at location A. IMPRESSION: 1. Diffusely increased vascularity throughout the thyroid with heterogeneous ec hogenicity and coarsened echotexture suggestive of thyroiditis. No discrete thy roid nodules.
--- NOTE | ~2023-04-21 | CT_ITS ---
EXAMINATION: CTA chest PE protocol DATE: 04/21/2023 02:53 INDICATION: Chest pain, dyspnea. TECHNIQUE: Computed tomography angiography (CTA) of the chest was performed with 100 mL Omnipaque-350 intravenous contrast timed to evaluate the pulmonary arteries. Coronal maximum intensity projection 3D-reconstructions were created by the technologist. Automated exposure control and iterative reconst ruction technique were employed. Exam dose: 493.75 mGy-cm total exam DLP. COMPARISON: 04/21/2023 PA and lateral chest 01/22/2023 CT pulmonary scan FINDINGS: There is diagnostic contrast enhancement of the pulmonary arteries and no evidence of pulmo nary embolism. No thoracic aortic aneurysm or dissection. Heart size is borderline. No hilar or mediastinal mass lesion or lymphadenopathy. No pericardial or pleural effusion. No pulmonary infiltrate or consolidation or suspicious pulmonary mass density. Approximately 3 mm nonobstructing upper pole right renal calculus. Approximately 2.2 cm nonspecific hypoenhancing lesion of the lateral aspect of the upper pole left ki dney. Further evaluation is recommended to exclude renal neoplasm. Status post cholecystectomy. IMPRESSION: No evidence of pulmonary embolism Status post cholecystectomy 3 mm nonobstructing upper pole right renal calculus Nonspecific approximately 2.2 mm hypoenhancing lesion of left kidney; malignancy is not excluded. Fur ther evaluation is recommended. Consider MR renal examination. Dr. Valencia telephoned the report and the recommendation for MR renal scan to evaluate the left renal ma ss lesion to emergency room physician Dr. Owens on 04/21/2023 at 0955 hours. Reviewed, dictated and finalized at Location [facility]. Reviewed, dictated and finalized at location A. IMPRESSION: No evidence of pulmonary embolism Status post cholecystectomy 3 mm nonobstructing upper pole right renal calculus Nonspecific approximately 2.2 mm hypoenhancing lesion of left kidney; malignanc y is not excluded. Further evaluation is recommended. Consider MR renal examina tion. Dr. Valencia telephoned the report and the recommendation for MR renal scan to eval uate the left renal mass lesion to emergency room physician Dr. Owens on 04/21 at 0955 hours.
--- NOTE | ~2023-04-21 | MR_ITS ---
EXAMINATION: MR abdomen wo/w con DATE: 04/22/2023 12:48 INDICATION: Renal mass TECHNIQUE: Magnetic resonance imaging (MRI) of the abdomen was performed without and with 16 mL Multi dc intravenous contrast. Sequences included coronal T2-weighted SS-FSE, coronal and axial FS 2D-F IESTA, axial STIR FSE, axial T2-weighted SS-FSE, axial T2-weighted FS SS-FSE, axial diffusion-weighte d SE, axial dual-echo T1-weighted FSPGR, and axial and coronal T1-weighted LAVA. Postcontrast axial T 1-weighted LAVA images were obtained in a time course. Postcontrast coronal T1-weighted LAVA images w ere obtained. COMPARISON: CT dated 04/21/2023 FINDINGS: Heart size is normal. No pericardial or pleural effusion. Cholecystectomy clips the gallbladder fossa . Liver, spleen, pancreas and bilateral adrenal glands are normal. Bilateral T2 hyperintense nonenhan cing cyst measuring 9 mm at the upper pole of the right kidney and 2.2 cm the mid left kidney, the la tter corresponding to the lesion of concern on prior CT. Visualized portion of the bowels are unremar kable. No pathologically enlarged lymphadenopathy. There is normal bone marrow signal throughout. IMPRESSION: 1. Bilateral nonenhancing renal cysts including a 2.2 cm cyst at the mid left kidney corresponding to the lesion of concern on prior CT. Reviewed, dictated and finalized at location A. IMPRESSION: 1. Bilateral nonenhancing renal cysts including a 2.2 cm cyst at the mid left k idney corresponding to the lesion of concern on prior CT.
--- NOTE | ~2023-04-21 | XR_ITS ---
XR chest 2V DATE: 04/21/2023 01:57 INDICATION: Mid to left chest pain TECHNIQUE: PA and lateral views COMPARISON: 01/22/2023 CT pulmonary scan 01/22/2023 2 view chest FINDINGS: Normal heart size. No hilar or mediastinal enlargement. No pulmonary infiltrate or consolidation, pleural effusion or pulmonary vascular congestion or pneumo thorax. Degenerative spurring of the thoracic spine. Surgical clips, right upper quadrant, consistent with cholecystectomy. IMPRESSION: No active cardiopulmonary disease Reviewed, dictated and finalized at location A.
--- NOTE | ~2023-04-21 | NM_ITS ---
EXAMINATION: NM nishant stress w perfusion DATE: 04/23/2023 09:57 INDICATION: Chest pain TECHNIQUE: Rest images were obtained following intravenous administration of 10.5 mCi Tc99m tetrofosm in (Myoview). The patient was infused intravenously with Lexiscan (Regadenoson). Then, 34.3 mCi Tc99m tetrofosmin (Myoview) was administered intravenously, and stress images were obtained. Data was kehinde nstructed into short axis and horizontal and vertical long axis SPECT images. Gated SPECT images were also obtained. COMPARISON: None. FINDINGS: There is no definite reversible or fixed perfusion abnormality to suggest ischemia or infar ction. There is normal left ventricular chamber size, wall motion and ejection fraction. Left ventr icular ejection fraction measures >70%. IMPRESSION: 1. Normal myocardial perfusion at rest and during stress. 2. Left ventricular ejection fraction measuring >70%. Reviewed, dictated and finalized at location A.
--- NOTE | 2023-04-21 01:33 | ECG_ITS ---
Measurements Intervals [place] Rate: 114 P: 52 AR: 139 QRS: 0 QRSD: 88 T: 13 QT: 340 QTc: 468 Interpretive Statements SINUS TACHYCARDIA POSSIBLE LEFT ATRIAL ENLARGEMENT [-0.1mV P WAVE IN V1/V2] ABNORMAL RHYTHM ECG COMPARED TO ECG 04/19/2023 19:35:41 NO SIGNIFICANT CHANGES Electronically Signed On 04-21-2023 11:14:40 CDT by Julián Hicks MD
[2023-04-21] MEDS: ASPIRIN 81 MG CHEWABLE TABLET 324 MG PO (01:44)
[2023-04-21 01:48] LABS: Basophils Percent Auto 0.6 % (0.2-1.2); Eosinophils Absolute Auto 0.1 K/mm3 (0-0.3); Eosinophils Percent Auto 0.8 % (0-4.4); Hematocrit 34.3 % (37.0-47.0); Hemoglobin 10.8 g/dL (12.0-15.0); Immature Granulocyte Absolute 0.02 K/mm3 (0.00-0.031); Immature Granulocyte Percent A 0.3 % (0-0.5); Lymphocytes Absolute Auto 2.12 K/mm3 (0.9-3.2); Lymphocytes Percent Auto 32.3 % (18.3-44.2); Mean Corpuscular HGB Conc 31.5 g/dl (32-36); Mean Corpuscular Hemoglobin 25.2 pg (26-34); Mean Corpuscular Volume 80.1 fl (80-100); Mean Platelet Volume 10.6 fl (7.4-10.4); Monocytes Absolute Auto 0.8 K/mm3 (0.1-0.6); Monocytes Percent Auto 11.6 % (2.6-8.5); Neutrophils Absolute Auto 3.6 K/mm3 (1.3-6.7); Neutrophils Percent Auto 54.4 % (45.5-73.1); Platelet Count Result 281 k/mm3 (150-375); Red Blood Count 4.28 M/mm3 (4.2-5.4); White Blood Count 6.6 K/mm3 (4.5-10.0)
[2023-04-21 02:16] LABS: Partial Thromboplastin Time 24.8 SECONDS (22.3-36.8); Prothrombin Time 13.2 Seconds (11.1-14.7)
[2023-04-21 02:27] LABS: Alanine Aminotransferase 37 U/L (6-35); Albumin Level 4.4 g/dL (3.5-5.1); Alkaline Phosphatase 76 U/L (38-126); Anion Gap 8 mmol/L (8-16); Aspartate Amino Transferase 32 U/L (14-36); Bilirubin,Total 0.4 mg/dL (0.2-1.3); Blood Urea Nitrogen 20 mg/dL (7-17); Calcium 9.9 mg/dL (8.4-10.2); Carbon Dioxide 30 mmol/L (22-30); Chloride 95 mmol/L (98-107); Estimated CRCL calculation 76 ml/min; Estimated Glomerular Filt Rate > 60; Glucose 398 mg/dL (65-110); Potassium 4.3 mmol/L (3.4-5.0); Sodium 133 mmol/L (137-145)
[2023-04-21 02:32] LABS: Troponin I < 0.012 ng/mL (0.000-0.034)
[2023-04-21 02:54] LABS: Lipase 75 U/L (23-300); NT Pro B Type Natriuretic Pept 190 pg/mL (19.9-100)
--- NOTE | 2023-04-21 02:54 | ECG_ITS ---
Measurements Intervals [place] Rate: 119 P: 64 NV: 140 QRS: -3 QRSD: 86 T: -8 QT: 340 QTc: 478 Interpretive Statements SINUS TACHYCARDIA MODERATE ST DEPRESSION [0.05+ mV ST DEPRESSION] COMPARED TO ECG 04/21/2023 01:40:13 ST (T WAVE) DEVIATION NOW PRESENT Electronically Signed On 04-21-2023 11:14:48 CDT by Julián Hicks MD
[2023-04-21] MEDS: NITROGLYCERIN SL 0.4 MG TABLET SUBLINGUAL (02:56)
--- NOTE | 2023-04-21 02:59 | PC.NURSE ---
First 0.4 nitro tablet was given sublingual at 0255, BP was 191/89, chest pain 6/10, and pulse was 120bpm. At 0300 BP was 168/93, chest pain 3/10, and pulse 122. At 0300 a second nitro 0.4mg tablet was given. At 0305 the blood pressure was 149/80 , the chest pain was a 2/10, and the pulse was 120bmp
[2023-04-21 03:11] LABS: Influenza A QL RT-PCR Negative (Negative); Influenza B QL RT-PCR Negative (Negative); SARS-CoV-2 RNA PCR Negative (Negative)
--- NOTE | 2023-04-21 03:54 | ED.GENADULT ---
HPI - General Adult General Chief complaint: Chest Pain Stated complaint: SOB, chest pain, N/V Time Seen by Provider: 04/21/23 01:40 History of Present Illness HPI narrative: Patient is a 58-year-old female who presents to the emergency department with chief complaint of chest discomfort. Patient reports that she has been seen in the emergency department several episodes including recently for nausea and vomiting the patient reports she received IV fluids and hydration during her previous visit and reports that today she started having discomfort in her chest and felt little short of breath the patient also noticed that her blood pressure was elevated today recently she has had her blood pressure medicines changed to 100 mg of metoprolol twice daily and hydrochlorothiazide. Related Data Home Medications Medication Instructions Recorded Confirmed lisinopril 10 mg tablet 03/27/21 metformin 500 mg tablet,extended mg PO 03/27/21 release 24 hr multivitamin with minerals-iron ml PO 03/27/21 fumarate 9 mg iron/15 mL oral liquid (Multi Vitamin) semaglutide 0.25 mg or 0.5 mg (2 0.25 mg subcut WEEKLY 03/27/21 03/27/21 mg/1.5 mL) subcutaneous pen injector (Ozempic) Allergies Allergy/AdvReac Type Severity Reaction Status Date / Time No Known Allergies Allergy Unknown Verified 01/22/23 03:33 Review of Systems Review of Systems: A 10 system review of systems was completed on the patient and is negative except for what is stated in the HPI. Nursing and ancillary documentation was reviewed. PMFSH Past Medical History Medical History Diabetes HTN (hypertension) Surgical History Surgical History Hx of cholecystectomy Family History Family History Other Diabetes mellitus Hypertension Social History Social History Smoking status: Never smoker Alcohol intake: never Substance use: never Living arrangements: with family Gender identity (if verbalized by the patient): Female Exam Narrative: GENERAL: Well-appearing, well-nourished, and in no acute distress. HEAD: Normocephalic, atraumatic. EYES: PERRLA and EOMI. ENT: Nares clear, no rhinorrhea or epistaxis. Mucous membranes moist. NECK: Supple. CHEST: Clear to auscultation. No respiratory distress. HEART: Regular rate and rhythm. No murmur heard. Normal peripheral pulses. ABDOMEN: Soft, nontender, nondistended, normal active bowel sounds. EXTREMITIES: Normal range of motion. No edema. SKIN: Warm, dry, no rash. NEURO: No focal deficits. Alert and oriented x3. PSYCH: Normal mood and affect. Course Vital Signs Vital signs: Vital Signs Temperature 36.7 C 04/21/23 01:34 Pulse Rate 123 H 04/21/23 01:34 Respiratory Rate 19 04/21/23 01:34 Blood Pressure 194/86 H 04/21/23 01:34 Pulse Oximetry 96 04/21/23 01:34 Oxygen Delivery Room Air 04/21/23 01:34 Temperature 36.7 C 04/21/23 01:34 Pulse Rate 115 H 04/21/23 05:02 Respiratory Rate 27 H 04/21/23 05:02 Blood Pressure 158/70 H 04/21/23 05:02 Pulse Oximetry 97 04/21/23 05:02 Oxygen Delivery Room Air 04/21/23 01:42 Medical Decision Making [facility] Narrative Medical decision making narrative: Differential diagnosis includes ACS, hypertensive urgency, PE Oratory studies were obtained which showed normal CBC normal CMP troponin was negative for 0 and 3-hour BNP was 190 COVID and flu were negative Chest x-ray showed no focal infiltrate CTA chest showed no evidence of pulmonary embolism Vital Signs Vital Signs: Vital Signs Temperature 36.7 C 04/21/23 01:34 Pulse Rate 123 H 04/21/23 01:34 Respiratory Rate 19 04/21/23 01:34 Blood Pressure 194/86 H 04/21/23 01:34 Pulse Oxim
[2023-04-21 05:02] LABS: Troponin I < 0.012 ng/mL (0.000-0.034)
--- NOTE | 2023-04-21 08:07 | PM.IMHP ---
H&P: HPI History of Present Illness Date/Time: 04/21/23 08:07 Chief Complaint: Chest pain Narrative: 58-year-old female with history of diabetes and hypertension is presenting with chest pain and shortness of breath. CTA in the ER was negative for PE. Chest x-ray negative for pneumonia or other acute pathology. Troponin negative x2. COVID and flu negative. Patient also noted significant nausea and vomiting as well as worsened heartburn over the last month. She denies any sick contacts or recent travel. Review of Systems Review of Systems: 12 point review of systems was assessed and was negative except as noted in the HPI [facility] Past Medical History Medical History Diabetes HTN (hypertension) Hypothyroidism Surgical History Surgical History Hx of cholecystectomy Family History Family History Mother Diabetes mellitus Hypertension Father Congestive heart failure Social History Social History Smoking status: Never smoker Alcohol intake: never Substance use: never Lack of Transportation: No Lack of Food: Never True Current Housing: I Have Housing Concerned About Future Housing: No Difficulty Paying Gas/Electric Bills: No Difficulty Paying for Meds: No Currently Unemployed: No Education: Bachelor's Degree Difficulty w/ Childcare or Family Care: No Living arrangements: with family Gender identity (if verbalized by the patient): Female Spiritual care concerns: No Meds Home Medications and Allergies Home Medications Medication Instructions Recorded Confirmed Type gabapentin 100 mg capsule 100 mg PO DAILY 04/21/23 04/21/23 History insulin glargine 100 unit/mL (3 30 unit subcut HS 04/21/23 04/21/23 History mL) subcutaneous pen (Lantus Solostar U-100 Insulin) lisinopril 20 1 tablet PO DAILY 04/21/23 04/21/23 History mg-hydrochlorothiazide 12.5 mg tablet metoprolol tartrate 25 mg tablet 50 mg PO BID 04/21/23 04/21/23 History Allergies Allergy/AdvReac Type Severity Reaction Status Date / Time No Known Allergies Allergy Unknown Verified 01/22/23 03:33 Vital Signs Vital Signs - 24 hr 04/21/23 01:34 04/21/23 01:38 04/21/23 01:38 Temperature 98.1 F Pulse Rate 123 H 115 H Respiratory Rate 19 Blood Pressure 194/86 H Pulse Oximetry 96 100 Oxygen Delivery Room Air Room Air 04/21/23 01:42 04/21/23 02:50 04/21/23 03:54 Temperature Pulse Rate 120 H 124 H Respiratory Rate 26 H 24 H Blood Pressure 191/89 H 163/91 H Pulse Oximetry 100 100 100 Oxygen Delivery Room Air 04/21/23 05:02 04/21/23 06:29 04/21/23 07:07 Temperature Pulse Rate 115 H 116 H 114 H Respiratory Rate 27 H 19 23 H Blood Pressure 158/70 H 148/64 H 126/72 Pulse Oximetry 97 97 100 Oxygen Delivery Exam Narrative: General: No acute distress, alert and oriented per baseline HEENT: Atraumatic, normocephalic, mucous membranes moist CV: Regular rate and rhythm, S1, S2 Lungs: Clear to auscultation bilaterally, no rales or crackles noted, no wheezes, good air entry Abdomen: Soft, nontender, nondistended Extremities: Normal to inspection Skin: No rashes noted, no lesions or wounds seen Psych: Euthymic, normal affect H&P: Results Labs Labs: Short CBC 04/21/23 Range/Units 01:40 WBC 6.6 (4.5-10.0) K/mm3 Hgb 10.8 L (12.0-15.0) g/dL Hct 34.3 L (37.0-47.0) % Plt Count 281 (150-375) k/mm3 BMP 04/21/23 01:40 Sodium 133 L Potassium 4.3 Chloride 95 L Carbon Dioxide 30 BUN 20 H Creatinine 0.70 Glucose 398 H Calcium 9.9 Cardiac Enzymes 04/21/23 04/21/23 Range/Units 01:40 04:25 Troponin I < 0.012 < 0.012 (0.000-0.034) ng/mL Liver Function 04/21/23 Range/Units
[2023-04-21 08:15] LABS: Glucose Point of Care 353 mg/dl (65-105)
--- NOTE | 2023-04-21 08:15 | ADMGEN ---
This patient, Tete Kincaid, was admitted to IMU Room 212-01. Patient/family oriented to hospital policies and general routines including ID bracelet, bed and alarms, visiting hours, pain management, procedures, bathroom and other care routines, personal items, smoking policy, room service/diet, and visiting hours. Information on how to activate the Rapid Response Team has been discussed. Patient/Family are encouraged to report perceived risks to care and to ask questions if they do not understand what they are told or what they should do.
[2023-04-21 08:56] LABS: Troponin I < 0.012 ng/mL (0.000-0.034)
[2023-04-21] MEDS: GABAPENTIN 100 MG CAPSULE PO (09:09)
[2023-04-21 11:05] LABS: Thyroid Stimulating Hormone < 0.015 uIU/mL (0.465-4.680)
[2023-04-21 12:15] LABS: Glucose Point of Care 279 mg/dl (65-105)
[2023-04-21] MEDS: lisinopriL 20 MG TABLET PO (12:15)
[2023-04-21] MEDS: hydroCHLOROthiazide 12.5 MG CAPSULE PO (12:15)
[2023-04-21] MEDS: ACETAMINOPHEN 325 MG TABLET 650 MG PO ×2 (12:16→18:23)
[2023-04-21] MEDS: METOPROLOL TARTRATE 50 MG TAB PO ×2 (12:16→20:39)
[2023-04-21] MEDS: INSULIN ASPART (*BKC) 100 UNITS/ML SUB-Q ×2 (12:18→18:15)
[2023-04-21 16:12] LABS: Glucose Point of Care 212 mg/dl (65-105)
[2023-04-21 20:28] LABS: Glucose Point of Care 231 mg/dl (65-105)
[2023-04-21] MEDS: INSULIN GLARGINE (*BKC) 100 UNITS/ML 30 UNITS SUB-Q (20:40)
[2023-04-22] VITALS (18 sets, daily range): BP systolic 136–147; BP diastolic 65–74; PULSE 105–126; RESP 14–20; TEMP 36.3–36.6; O2SAT 95–100
[2023-04-22] MEDS: ACETAMINOPHEN 325 MG TABLET 650 MG PO ×2 (04:18→11:30)
[2023-04-22 04:59] LABS: Hematocrit 33.9 % (37.0-47.0); Hemoglobin 10.7 g/dL (12.0-15.0); Mean Corpuscular HGB Conc 31.6 g/dl (32-36); Mean Corpuscular Hemoglobin 25.1 pg (26-34); Mean Corpuscular Volume 79.4 fl (80-100); Mean Platelet Volume 9.7 fl (7.4-10.4); Platelet Count Result 261 k/mm3 (150-375); Red Blood Count 4.27 M/mm3 (4.2-5.4); Red Cell Distribution Width 12.8 % (11.5-14.5); White Blood Count 5.3 K/mm3 (4.5-10.0)
[2023-04-22 05:12] LABS: Alanine Aminotransferase 34 U/L (6-35); Albumin Level 4.3 g/dL (3.5-5.1); Alkaline Phosphatase 71 U/L (38-126); Anion Gap 7 mmol/L (8-16); Aspartate Amino Transferase 37 U/L (14-36); Bilirubin,Total 0.3 mg/dL (0.2-1.3); Blood Urea Nitrogen 16 mg/dL (7-17); Calcium 9.9 mg/dL (8.4-10.2); Carbon Dioxide 30 mmol/L (22-30); Chloride 98 mmol/L (98-107); Estimated CRCL calculation 87 ml/min; Estimated Glomerular Filt Rate > 60; Glucose 222 mg/dL (65-110); Potassium 3.8 mmol/L (3.4-5.0); Sodium 135 mmol/L (137-145)
[2023-04-22 07:41] LABS: Glucose Point of Care 218 mg/dl (65-105)
--- NOTE | 2023-04-22 07:52 | PM.IMPN ---
Progress Note: A&P Assessment and Plan (1) Chest pain: Code(s): R07.9 - Chest pain, unspecified Status: Acute Assessment and Plan: Monitor telemetry, trend troponin Atypical, troponin negative x2, check echo Consult cardiology, stress test 04/23 Recommended medical management with crestor 10 mg, aspirin 81 mg, continue metoprolol 40 mg BID, PPI daily Could also be secondary to underlying GERD versus peptic ulcer disease, start PPI and monitor response, if cardiac workup is negative would recommend consulting GI for possible EGD (2) Hypertension: Code(s): I10 - Essential (primary) hypertension Status: Acute Assessment and Plan: Blood pressures reviewed 04/22 (3) Diabetes: Code(s): E11.9 - Type 2 diabetes mellitus without complications Status: Acute Assessment and Plan: Blood glucose reviewed 04/22 Accu-Cheks, sliding scale insulin, A1c 11 Consult religious educator, discuss risks extensively with patient, will need close outpatient f/u and management (4) Hypothyroidism: Code(s): E03.9 - Hypothyroidism, unspecified Status: Acute Assessment and Plan: TSH very low, check T4, likely causing tachycardia Thyroid US ordered and pending (5) Renal mass: Code(s): N28.89 - Other specified disorders of kidney and ureter Status: Acute Assessment and Plan: Found incidentally on CTA of the chest, radiology is recommending MRI of the abdomen, ordered and pending Plan DVT prophylaxis with SCDs GI prophylaxis not indicated Code status full code Subjective Date/time seen: 04/22/23 07:52 Interval history: 58-year-old female with history of diabetes and hypertension is presenting with chest pain and shortness of breath. No overnight events noted. No chest pain or shortness of breath. No nausea, vomiting or diarrhea. No fevers or chills. Review of Systems Review of Systems: 12 point review of systems was assessed and was negative except as noted in the HPI Exam Narrative: General: No acute distress, alert and oriented per baseline HEENT: Atraumatic, normocephalic, mucous membranes moist CV: Regular rate and rhythm, S1, S2 Lungs: Clear to auscultation bilaterally, no rales or crackles noted, no wheezes, good air entry Abdomen: Soft, nontender, nondistended Extremities: Normal to inspection Skin: No rashes noted, no lesions or wounds seen Psych: Euthymic, normal affect Objective Data Vital Signs Vital Signs: Vital Signs - 24 hr 04/21/23 08:00 04/21/23 10:00 04/21/23 12:00 Temperature 95.6 F L Pulse Rate 116 H 116 H 110 H Respiratory Rate 22 H Blood Pressure 156/73 H Pulse Oximetry 100 Oxygen Delivery 04/21/23 12:16 04/21/23 12:00 04/21/23 14:00 Temperature 98.1 F Pulse Rate 123 H 104 H 109 H Respiratory Rate 18 Blood Pressure 153/64 H Pulse Oximetry 100 Oxygen Delivery 04/21/23 16:00 04/21/23 16:00 04/21/23 18:00 Temperature 98.5 F Pulse Rate 115 H 113 H 113 H Respiratory Rate 18 Blood Pressure 143/56 H Pulse Oximetry 99 Oxygen Delivery 04/21/23 20:00 04/21/23 20:00 04/21/23 20:39 Temperature 97.2 F L Pulse Rate 119 H 119 H 117 H Respiratory Rate 20 20 Blood Pressure 145/67 H Pulse Oximetry 96 96 Oxygen Delivery Room Air 04/21/23 20:00 04/21/23 22:00 04/21/23 23:17 Temperature 97 F L Pulse Rate 118 H 118 H 114 H Respiratory Rate 20 Blood Pressure 132/57 L Pulse Oximetry 96 Oxygen Delivery 04/22/23 00:00 04/22/23 00:00 04/22/23 02:00 Temperature Pulse Rate 114 H 107 H 105 H Respiratory Rate 20 Blood Pressure Pulse Oximetry 96 Oxygen Delivery Room Air 04/22/23 04:00 04/22/23 04:00 04/22/23 04:00 Temperature 97.4 F L Pulse Rate 116 H 111 H 116 H Respiratory Rate 20 20 Blood Pressure 140/68 Pulse Oximetry 97 97 Oxygen Delivery Room Air 04/22/23 05:50 Temperat
[2023-04-22] MEDS: METOPROLOL TARTRATE 50 MG TAB PO ×2 (08:09→21:24)
[2023-04-22] MEDS: hydroCHLOROthiazide 12.5 MG CAPSULE PO (08:09)
[2023-04-22] MEDS: lisinopriL 20 MG TABLET PO (08:09)
[2023-04-22] MEDS: GABAPENTIN 100 MG CAPSULE PO (08:09)
[2023-04-22] MEDS: INSULIN ASPART (*BKC) 100 UNITS/ML SUB-Q ×3 (08:09→17:23)
[2023-04-22 08:46] LABS: Hemoglobin A1C 11.3 % (<5.7)
--- NOTE | 2023-04-22 09:42 | PM.CNCAR ---
Assessment and Plan Assessment and plan (1) Hyperthyroidism: Code(s): E05.90 - Thyrotoxicosis, unspecified without thyrotoxic crisis or storm Status: Acute Assessment and Plan: She had recent T4 levels that were greater than 4 and a TSH which was non-existent. Her hyperthyroidism is likely the etiology of her tachycardia. Will order a thyroid ultrasound (2) Chest pain: Code(s): R07.9 - Chest pain, unspecified Status: Acute Assessment and Plan: Atypical. Possibly related to GERD/esophagitis because of her copious amount of vomiting that she had a couple of days ago. Continue pantoprazole 40 mg daily. Will keep NPO after midnight for Lexiscan myocardial perfusion study however given the fact to her chest pain was somewhat responsive to nitroglycerin and the fact that she has several risk factors for coronary disease. She is diabetic and should be on a statin anyway. Will start rosuvastatin 10 mg daily. Aspirin 81 mg p.o. daily. Continue metoprolol 50 mg p.o. b.i.d. (3) Hypertension: Code(s): I10 - Essential (primary) hypertension Status: Acute Assessment and Plan: Above goal (4) Diabetes: Code(s): E11.9 - Type 2 diabetes mellitus without complications Status: Acute Assessment and Plan: Wildly uncontrolled (5) Renal mass: Code(s): N28.89 - Other specified disorders of kidney and ureter Status: Acute Assessment and Plan: Workup per hospitalist. MRI in History of Present Illness History of Present Illness Consult date/time: 04/22/23 09:42 Requesting physician: Cecily Arriaza DO Consult reason: chest pain Reason For Visit: chest pain,hypertension Narrative: Date of service 04/22/2023 Reason for consultation: Chest pain and evaluate for stress test Requesting provider: Dr. 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 Patient started having issues 3 days ago on Saturday when she was vomiting copiously. She also had some slight chest pain radiating to her left shoulder during that time frame. She did go to the ER and was discharged. On Saturday during her overnight shift she has recently started having chest pain about 12 30 in the morning. It was called a pressure and she was a bit nauseated. It was 6/10. CT scan of chest was performed which was negative for pulmonary embolism. She was then given 2 nitroglycerins which did improve her symptoms down to a 1/10. She still has some residual mild discomfort even now. She has been having more acid reflux symptoms specially in the middle of night over the past few weeks. She denies any exertional chest pain, shortness of breath, syncope, presyncope, paroxysmal nocturnal dyspnea, orthopnea, edema palpitations. Review of Systems Review of Systems: All systems reviewed & are unremarkable except as noted in HPI and below Constitutional: Constitutional: Denies body ache(s) Eyes: Eyes: Denies blurry vision ENT: Denies Normal hearing present Cardiovascular: Cardiovascular: Reports chest pain Respiratory: Respiratory: Denies chest congestion Gastrointestinal: Gastrointestinal: Denies abdominal pain Genitourinary: Genitourinary: Denies hematuria Musculoskeletal: Musculoskeletal: Denies back pain Integumentary/Breasts: Skin/Breast: Denies dry skin Neurologic: Denies Abnormal speech present Psychiatric: Psychiatric: Denies anxiety Endocrine: Endocrine: Denies excessive sweating Hematologic/Lymphatic: Hematologic/Lymphatic: Denies easy bleeding Allergic/Immunologic: Allergic/Immunologic: Denies GI upset with certain foods PMFSH Past Medical History Medical History Diabetes HTN (hypertension) Hypothyroidism Surgical History Surgical History Hx of cholecystectomy Family History F
[2023-04-22 11:27] LABS: Glucose Point of Care 312 mg/dl (65-105)
--- NOTE | 2023-04-22 11:55 | PC.NURSE ---
Off floor to MRI and [facility] dept.
[2023-04-22 20:01] LABS: Glucose Point of Care 228 mg/dl (65-105)
[2023-04-22 20:24] LABS: Glucose Point of Care 263 mg/dl (65-105)
[2023-04-22] MEDS: INSULIN GLARGINE (*BKC) 100 UNITS/ML 30 UNITS SUB-Q (21:25)
[2023-04-23] VITALS (15 sets, daily range): BP systolic 138–150; BP diastolic 62–86; PULSE 104–140; RESP 16–20; TEMP 35.6–36.8; O2SAT 98–100
[2023-04-23 00:16] LABS: Glucose Point of Care 221 mg/dl (65-105)
[2023-04-23 05:09] LABS: Basophils Percent Auto 0.4 % (0.2-1.2); Eosinophils Absolute Auto 0.1 K/mm3 (0-0.3); Eosinophils Percent Auto 1.3 % (0-4.4); Hematocrit 32.8 % (37.0-47.0); Hemoglobin 10.3 g/dL (12.0-15.0); Immature Granulocyte Absolute 0.01 K/mm3 (0.00-0.031); Immature Granulocyte Percent A 0.2 % (0-0.5); Lymphocytes Absolute Auto 1.65 K/mm3 (0.9-3.2); Lymphocytes Percent Auto 29.9 % (18.3-44.2); Mean Corpuscular HGB Conc 31.4 g/dl (32-36); Mean Corpuscular Hemoglobin 25.5 pg (26-34); Mean Corpuscular Volume 81.2 fl (80-100); Mean Platelet Volume 10.1 fl (7.4-10.4); Monocytes Absolute Auto 0.6 K/mm3 (0.1-0.6); Monocytes Percent Auto 11.4 % (2.6-8.5); Neutrophils Absolute Auto 3.1 K/mm3 (1.3-6.7); Neutrophils Percent Auto 56.8 % (45.5-73.1); Platelet Count Result 237 k/mm3 (150-375); Red Blood Count 4.04 M/mm3 (4.2-5.4); Red Cell Distribution Width 12.8 % (11.5-14.5); White Blood Count 5.5 K/mm3 (4.5-10.0)
[2023-04-23 05:17] LABS: Alanine Aminotransferase 31 U/L (6-35); Albumin Level 3.8 g/dL (3.5-5.1); Alkaline Phosphatase 62 U/L (38-126); Anion Gap 6 mmol/L (8-16); Aspartate Amino Transferase 33 U/L (14-36); Bilirubin,Total 0.3 mg/dL (0.2-1.3); Blood Urea Nitrogen 18 mg/dL (7-17); Calcium 9.5 mg/dL (8.4-10.2); Carbon Dioxide 29 mmol/L (22-30); Chloride 100 mmol/L (98-107); Estimated CRCL calculation 88 ml/min; Estimated Glomerular Filt Rate > 60; Glucose 205 mg/dL (65-110); Potassium 3.7 mmol/L (3.4-5.0); Sodium 135 mmol/L (137-145)
--- NOTE | 2023-04-23 08:56 | EST_ITS ---
Patient Info Name: Tete Kincaid Age: 58 years : 1965 Gender: Female Ht: 63 in Wt: 184 lbs BSA: 1.96 m2 HR: 110 bpm BP: 181 / 87 mmHg Heart Rhythm: Sinus Rhythm Exam Date: 04/23/2023 9:03 AM Exam Location: [facility] Stress Patient Status: Outpatient Admit Date: 04/21/2023 Staff Ordering Physician: Samson Hurst MD Attending Provider: Wendy Burt MD Exercise Technologist: Carmen Hyman, CT Nurse: Julia Vann APN Exam Type: CA stress nishant w NM Study Info Indications R07.9 - Chest pain, unspecified A regadenoson stress test was performed. Summary 1. Sinus tachycardia with nonspecific ST and T-wave abnormality. 2. No additional ST or T-wave abnormalities noted following Lexiscan injection. 3. Clinically and electrocardiographically uneventful Lexiscan stress test. 4. Myocardial perfusion imaging study to be dictated by Radiology. Protocol: Lexiscan Stress ECG Details Stage: REST Duration (min): 1 min : 56 sec HR (bpm): 111 SBP (mmHg): 181 DBP (mmHg): 77 Stage: REST Duration (min): 7 min : 53 sec HR (bpm): 107 SBP (mmHg): 181 DBP (mmHg): 77 Stage: STAGE 1 Duration (min): 0 min : 59 sec HR (bpm): 130 SBP (mmHg): 166 DBP (mmHg): 57 Stage: RECOVERY Duration (min): 1 min : 0 sec HR (bpm): 127 SBP (mmHg): 166 DBP (mmHg): 57 Stage: RECOVERY Duration (min): 2 min : 0 sec HR (bpm): 133 SBP (mmHg): 166 DBP (mmHg): 57 Stage: RECOVERY Duration (min): 3 min : 0 sec HR (bpm): 127 SBP (mmHg): 180 DBP (mmHg): 62 Stage: RECOVERY Duration (min): 4 min : 0 sec HR (bpm): 127 SBP (mmHg): 180 DBP (mmHg): 62 Stage: RECOVERY Duration (min): 4 min : 50 sec HR (bpm): 123 SBP (mmHg): 173 DBP (mmHg): 45 Rest HR: 107 bpm Peak HR: 133 bpm Rest Sys BP: 181 mmHg Peak Sys BP: 180 mmHg Max Pred HR: 160 bpm % Max Pred HR: 83 % Target HR: 136 bpm Max RPP: 23,940 bpm*mmHg Termination Reason: Completed protocol Total Time: 1 min : 0 sec Rest Zimmerman BP: 77 mmHg Peak Zimmerman BP: 62 mmHg Total Dose: 0.4 mg Resting ECG Sinus tachycardia with nonspecific ST and T-wave abnormality. Stress ECG No additional ST or T-wave abnormalities noted following Lexiscan injection. Report Signatures
--- NOTE | 2023-04-23 09:21 | PM.PNCARD ---
Progress Note: A&P Assessment and Plan (1) Hyperthyroidism: Code(s): E05.90 - Thyrotoxicosis, unspecified without thyrotoxic crisis or storm Status: Acute Assessment and Plan: She had recent T4 levels that were greater than 4 and a TSH which was non-existent. Her hyperthyroidism is likely the etiology of her tachycardia. Thyroid ultrasound ordered but cannot be done for 4 weeks per nuclear med. (2) Chest pain: Code(s): R07.9 - Chest pain, unspecified Status: Acute Assessment and Plan: Atypical. Possibly related to GERD/esophagitis because of her copious amount of vomiting that she had a couple of days ago. MPI negative for ischemia, EF >70%. Continue pantoprazole 40 mg daily. Continue rosuvastatin 10 mg daily. Aspirin 81 mg p.o. daily. Continue metoprolol 50 mg p.o. b.i.d. OK for discharge today from a cardiac standpoint (3) Hypertension: Code(s): I10 - Essential (primary) hypertension Status: Acute Assessment and Plan: Above goal (4) Diabetes: Code(s): E11.9 - Type 2 diabetes mellitus without complications Status: Acute Assessment and Plan: Uncontrolled. (5) Renal mass: Code(s): N28.89 - Other specified disorders of kidney and ureter Status: Acute Assessment and Plan: Workup per hospitalist. Subjective Date/time seen: 04/23/23 09:21 Interval history: Cardiology follow up for chest pain Seeing her in the stress lab this morning. She feels well. Had some chest discomfort earlier this morning which has resolved Review of Systems Review of Systems: All systems reviewed & are unremarkable except as noted in HPI and below Constitutional: Constitutional: Denies body ache(s) and Denies excessive sweating Eyes: Eyes: Denies blurry vision ENT: Denies Normal hearing present Cardiovascular: Cardiovascular: Reports chest pain Respiratory: Respiratory: Denies chest congestion Gastrointestinal: Gastrointestinal: Denies abdominal pain Genitourinary: Genitourinary: Denies hematuria Musculoskeletal: Musculoskeletal: Denies back pain Integumentary/Breasts: Skin/Breast: Denies dry skin Neurologic: Denies Normal hearing present and Denies Abnormal speech present Psychiatric: Psychiatric: Denies anxiety Endocrine: Endocrine: Denies excessive sweating Hematologic/Lymphatic: Hematologic/Lymphatic: Denies easy bleeding Allergic/Immunologic: Allergic/Immunologic: Denies GI upset with certain foods Exam Narrative: Awake alert oriented appears to be in no acute distress. Appears stated age Const: General: comfortable and no acute distress HENMT: Face/Nose/Sinus: Normal nares present Mouth: Yes moist mucous membranes Eyes: General: appearance normal, both eyes and all related structures Sclera: sclerae normal Neck: Neck: supple and no JVD Carotids: no bruits Chest: Other: No reproducible chest wall pain to palpation Resp: Effort & Inspection: normal respiratory effort Auscultation: clear to auscultation bilaterally Cardio: Rate: tachycardic Rhythm: regular rhythm Heart sounds: no murmurs GI: Inspection: non-distended Auscultation: normal bowel sounds Skin: General skin exam: normal color Neuro: Cranial nerves: No Normal hearing present Speech: normal speech and No Abnormal speech present Motor exam (neuro): 5/5 motor strength present throughout Extrem: General: normal to inspection Psych: Mental Status: mental status grossly normal Objective Data Vital Signs Vital Signs: Vital Signs - 24 hr 04/22/23 10:00 04/22/23 12:00 04/22/23 11:50 Temperature 36.4 C Pulse Rate 107 H 107 H Respiratory Rate 14 Blood Pressure 140/74 Pulse Oximetry 95 98 Oxygen Delivery Room Air 04/22/23 13:02 04/22/23 16:00 04/22/23 14:00 Temperature 36.4 C L Pulse Rate 112 H 107 H 113 H Respiratory Rate 14 Blood Pressure 136/67 Pulse Oximetry 100 Oxygen Deli
[2023-04-23 10:11] LABS: Glucose Point of Care 217 mg/dl (65-105)
[2023-04-23] MEDS: ASPIRIN 81 MG ENTERIC TABLET PO (10:28)
[2023-04-23] MEDS: INSULIN ASPART (*BKC) 100 UNITS/ML SUB-Q ×2 (10:28→18:23)
[2023-04-23] MEDS: METOPROLOL TARTRATE 50 MG TAB PO (10:29)
[2023-04-23] MEDS: ROSUVASTATIN 10 MG TABLET PO (10:29)
[2023-04-23] MEDS: lisinopriL 20 MG TABLET PO (10:29)
[2023-04-23] MEDS: hydroCHLOROthiazide 12.5 MG CAPSULE PO (10:29)
[2023-04-23] MEDS: GABAPENTIN 100 MG CAPSULE PO (10:29)
[2023-04-23] MEDS: ACETAMINOPHEN 325 MG TABLET 650 MG PO ×2 (10:36→17:17)
[2023-04-23 12:21] LABS: Glucose Point of Care 163 mg/dl (65-105)
[2023-04-23] MEDS: ONDANSETRON INJ 4 MG/2 ML VIAL IV PUSH (12:37)
--- NOTE | 2023-04-23 17:49 | PM.IMPN ---
Progress Note: A&P Assessment and Plan (1) Chest pain: Code(s): R07.9 - Chest pain, unspecified Status: Acute Assessment and Plan: Monitor telemetry, trend troponin Atypical, troponin negative x2, check echo Consult cardiology, stress test 04/23 Recommended medical management with crestor 10 mg, aspirin 81 mg, continue metoprolol 40 mg BID, PPI daily Could also be secondary to underlying GERD versus peptic ulcer disease, start PPI and monitor response, if cardiac workup is negative would recommend consulting GI for possible EGD Cardiac workup negative, ok for d/c from their standpoint (2) Hypertension: Code(s): I10 - Essential (primary) hypertension Status: Acute Assessment and Plan: Blood pressures reviewed 04/23 (3) Diabetes: Code(s): E11.9 - Type 2 diabetes mellitus without complications Status: Acute Assessment and Plan: Blood glucose reviewed 04/23 Accu-Cheks, sliding scale insulin, A1c 11 Consult software test specialist, discuss risks extensively with patient, will need close outpatient f/u and management Increase lantus to 35 units QHS, novolog 5 units TIDWM (4) Hypothyroidism: Code(s): E03.9 - Hypothyroidism, unspecified Status: Acute Assessment and Plan: TSH very low, check T4, likely causing tachycardia Thyroid US ordered, nuc med uptake study ordered to be taken outpatient (5) Renal mass: Code(s): N28.89 - Other specified disorders of kidney and ureter Status: Acute Assessment and Plan: Found incidentally on CTA of the chest, radiology is recommending MRI of the abdomen, renal cysts only, benign, no concerns, no follow up needed Plan DVT prophylaxis with SCDs GI prophylaxis not indicated Code status full code Subjective Date/time seen: 04/23/23 17:49 Interval history: 58-year-old female with history of diabetes and hypertension is presenting with chest pain and shortness of breath. No overnight events noted. No chest pain or shortness of breath. No nausea, vomiting or diarrhea. No fevers or chills. Still with episodes of palpitations with exertion. Review of Systems Review of Systems: 12 point review of systems was assessed and was negative except as noted in the HPI Exam Narrative: General: No acute distress, alert and oriented per baseline HEENT: Atraumatic, normocephalic, mucous membranes moist CV: Regular rate and rhythm, S1, S2 Lungs: Clear to auscultation bilaterally, no rales or crackles noted, no wheezes, good air entry Abdomen: Soft, nontender, nondistended Extremities: Normal to inspection Skin: No rashes noted, no lesions or wounds seen Psych: Euthymic, normal affect Objective Data Vital Signs Vital Signs: Vital Signs - 24 hr 04/22/23 18:00 04/22/23 20:00 04/22/23 21:24 Temperature 97.8 F Pulse Rate 126 H 112 H 120 H Respiratory Rate 16 Blood Pressure 147/65 H Pulse Oximetry 100 Oxygen Delivery 04/22/23 20:00 04/22/23 20:00 04/22/23 22:00 Temperature Pulse Rate 115 H 120 H 115 H Respiratory Rate 16 Blood Pressure Pulse Oximetry 100 Oxygen Delivery Room Air 04/22/23 23:45 04/23/23 00:00 04/23/23 04:00 Temperature 97 F L 96.2 F L Pulse Rate 115 H 116 H 112 H Respiratory Rate 16 16 16 Blood Pressure 143/70 H 150/86 H Pulse Oximetry 100 98 99 Oxygen Delivery Room Air 04/23/23 04:00 04/23/23 00:00 04/23/23 02:00 Temperature Pulse Rate 112 H 114 H 110 H Respiratory Rate 16 Blood Pressure Pulse Oximetry 99 Oxygen Delivery Room Air 04/23/23 04:00 04/23/23 06:00 04/23/23 10:29 Temperature Pulse Rate 110 H 115 H 110 H Respiratory Rate Blood Pressure Pulse Oximetry Oxygen Delivery 04/23/23 08:00 04/23/23 12:00 04/23/23 08:00 Temperature 98.2 F 98.1 F Pulse Rate 111 H 106 H 116 H Respiratory Rate 18 18 Blood Pressure 138/81 139/62 Pulse Oximetry 100 100 Ox
[2023-04-23 18:10] LABS: Glucose Point of Care 299 mg/dl (65-105)
--- NOTE | 2023-04-23 18:42 | PM.DS ---
DS: Admitting Diagnosis Discharge Date 04/23/23 DS: Summary Time Spent with Patient Time attestation: Total time spent providing and/or coordinating discharge services: DS: Data Data Completed and Pending Labs on day of discharge: Labs from last 24 hours 04/23/23 04/23/23 04/23/23 16:33 11:44 10:06 WBC RBC Hgb Hct MCV MCH MCHC RDW Plt Count MPV Immature Gran % (Auto) Neut % (Auto) Lymph % (Auto) [place] % (Auto) Eos % (Auto) Baso % (Auto) Lymph # (Auto) [place] # (Auto) Eos # (Auto) Baso # (Auto) Abs Immat Gran (auto) Absolute Neuts (auto) Absolute Nucleated RBC Nucleated RBC % Sodium Potassium Chloride Carbon Dioxide Anion Gap BUN Creatinine Estim Creat Clear Calc Estimated GFR Glucose POC Capillary Glucose 299 H 163 H 217 H Calcium Total Bilirubin AST ALT Alkaline Phosphatase Total Protein Albumin Thyroid Peroxidase Ab 04/23/23 04/23/23 04/23/23 04:46 04:42 00:12 WBC 5.5 RBC 4.04 L Hgb 10.3 L Hct 32.8 L MCV 81.2 MCH 25.5 L MCHC 31.4 L RDW 12.8 Plt Count 237 MPV 10.1 Immature Gran % (Auto) 0.2 Neut % (Auto) 56.8 Lymph % (Auto) 29.9 [place] % (Auto) 11.4 H Eos % (Auto) 1.3 Baso % (Auto) 0.4 Lymph # (Auto) 1.65 [place] # (Auto) 0.6 Eos # (Auto) 0.1 Baso # (Auto) 0.0 Abs Immat Gran (auto) 0.01 Absolute Neuts (auto) 3.1 Absolute Nucleated RBC 0.0 Nucleated RBC % 0.0 Sodium 135 L Potassium 3.7 Chloride 100 Carbon Dioxide 29 Anion Gap 6 L BUN 18 H Creatinine 0.60 L Estim Creat Clear Calc 88 Estimated GFR > 60 Glucose 205 H POC Capillary Glucose 221 H Calcium 9.5 Total Bilirubin 0.3 AST 33 ALT 31 Alkaline Phosphatase 62 Total Protein 7.0 Albumin 3.8 Thyroid Peroxidase Ab Pending 04/22/23 04/22/23 20:05 16:12 WBC RBC Hgb Hct MCV MCH MCHC RDW Plt Count MPV Immature Gran % (Auto) Neut % (Auto) Lymph % (Auto) [place] % (Auto) Eos % (Auto) Baso % (Auto) Lymph # (Auto) [place] # (Auto) Eos # (Auto) Baso # (Auto) Abs Immat Gran (auto) Absolute Neuts (auto) Absolute Nucleated RBC Nucleated RBC % Sodium Potassium Chloride Carbon Dioxide Anion Gap BUN Creatinine Estim Creat Clear Calc Estimated GFR Glucose POC Capillary Glucose 263 H 228 H Calcium Total Bilirubin AST ALT Alkaline Phosphatase Total Protein Albumin Thyroid Peroxidase Ab Discharge Plan Discharge Attending physician on discharge: Cecily Arriaza Consulting providers: Julia Vann Discharging Clinician: Cecily Arriaza Patient Disposition: Home, Self-Care Activity: as tolerated Diet: as tolerated Patient Instructions: Chest Pain (DC), Hypertension (DC) Stand Alone Forms: General Discharge Information Follow-up/Referrals: Deidra Kwok DO [Physician] - Julia Vann, MAIL LIST PROCESSOR-C [Advanced Practice Nurse] - Elis Solorio MD [Physician] - Discharge Medications: New aspirin 81 mg Tablet,Delayed Release (Dr/Ec) 81 mg PO QAM 30 Days Qty: 30 0RF rosuvastatin [Crestor] 10 mg Tablet 10 mg PO QAM 30 Days Qty: 30 0RF metoprolol tartrate [Lopressor] 50 mg tablet 50 mg PO BID 30 Days Qty: 60 0RF metoprolol tartrate 25 mg tablet 25 mg PO BID Qty: 30 0RF insulin glargine [Lantus Solostar U-100 Insulin] 100 unit/mL (3 mL) insulin pen 35 unit subcut QAM 30 Days Qty: 10.5 0RF insulin aspart U-100 [Novolog FlexPen U-100 Insulin] 100 unit/mL (3 mL) insulin pen 5 unit subcut TID 30 Days Qty: 4.5 0RF Continued gabapentin 100 mg capsule 100 mg PO DAILY lisinopril-hydrochlorothiazide 20-12.5 mg tablet 1 tablet PO DAILY Discontinued metoprolol tartrate 25 mg tablet 50 mg PO BID
[2023-04-23 20:05] LABS: Glucose Point of Care 192 mg/dl (65-105)
[2023-04-23] MEDS: METOPROLOL TARTRATE TAB 25 MG, METOPROLOL TARTRATE TAB 50 MG 75 MG PO (20:51)
[2023-04-23] MEDS: INSULIN GLARGINE (*BKC) 100 UNITS/ML 35 UNITS SUB-Q (20:52)
[2023-04-24] VITALS (7 sets, daily range): BP systolic 143–147; BP diastolic 68–74; PULSE 107–118; RESP 16–20; TEMP 36–36.1; O2SAT 98–99
[2023-04-24 05:00] LABS: Basophils Percent Auto 0.5 % (0.2-1.2); Eosinophils Absolute Auto 0.1 K/mm3 (0-0.3); Eosinophils Percent Auto 1.6 % (0-4.4); Hematocrit 31.8 % (37.0-47.0); Hemoglobin 9.9 g/dL (12.0-15.0); Immature Granulocyte Absolute 0.01 K/mm3 (0.00-0.031); Immature Granulocyte Percent A 0.2 % (0-0.5); Lymphocytes Absolute Auto 1.89 K/mm3 (0.9-3.2); Mean Corpuscular HGB Conc 31.1 g/dl (32-36); Mean Corpuscular Hemoglobin 25.1 pg (26-34); Mean Corpuscular Volume 80.7 fl (80-100); Mean Platelet Volume 10.6 fl (7.4-10.4); Monocytes Absolute Auto 0.6 K/mm3 (0.1-0.6); Neutrophils Absolute Auto 2.9 K/mm3 (1.3-6.7); Neutrophils Percent Auto 52.7 % (45.5-73.1); Platelet Count Result 230 k/mm3 (150-375); Red Blood Count 3.94 M/mm3 (4.2-5.4); White Blood Count 5.6 K/mm3 (4.5-10.0)
[2023-04-24 05:28] LABS: Alanine Aminotransferase 27 U/L (6-35); Albumin Level 3.8 g/dL (3.5-5.1); Alkaline Phosphatase 57 U/L (38-126); Anion Gap 7 mmol/L (8-16); Aspartate Amino Transferase 31 U/L (14-36); Bilirubin,Total 0.3 mg/dL (0.2-1.3); Blood Urea Nitrogen 17 mg/dL (7-17); Calcium 9.4 mg/dL (8.4-10.2); Carbon Dioxide 28 mmol/L (22-30); Chloride 102 mmol/L (98-107); Estimated CRCL calculation 88 ml/min; Estimated Glomerular Filt Rate > 60; Glucose 153 mg/dL (65-110); Potassium 3.5 mmol/L (3.4-5.0); Sodium 137 mmol/L (137-145)
[2023-04-24 07:59] LABS: Glucose Point of Care 159 mg/dl (65-105)
--- NOTE | 2023-04-24 09:57 | PM.PNCARD ---
Progress Note: A&P Assessment and Plan (1) Hyperthyroidism: Code(s): E05.90 - Thyrotoxicosis, unspecified without thyrotoxic crisis or storm Status: Acute Assessment and Plan: She had recent T4 levels that were greater than 4 and a TSH which was non-existent. Her hyperthyroidism is likely the etiology of her tachycardia. Outpatient thyroid workup imperative. She is still tachycardic today but heart rates in the 1 teens rest. She likely will remain tachycardic until her hyperthyroidism is treated. (2) Chest pain: Code(s): R07.9 - Chest pain, unspecified Status: Acute Assessment and Plan: Atypical. Possibly related to GERD/esophagitis because of her copious amount of vomiting that she had a couple of days ago. MPI negative for ischemia, EF >70%. Continue pantoprazole 40 mg daily. Continue rosuvastatin 10 mg daily. Aspirin 81 mg p.o. daily. Continue metoprolol 75 mg p.o. b.i.d. Okay to discharge from my perspective. (3) Hypertension: Code(s): I10 - Essential (primary) hypertension Status: Acute Assessment and Plan: Above goal (4) Diabetes: Code(s): E11.9 - Type 2 diabetes mellitus without complications Status: Acute Assessment and Plan: Uncontrolled. (5) Renal mass: Code(s): N28.89 - Other specified disorders of kidney and ureter Status: Acute Assessment and Plan: Workup per hospitalist. Subjective Date/time seen: 04/24/23 09:57 Interval history: Cardiology follow up for chest pain Date of service 04/24/2023 She has no chest pain, shortness breath. Still tachycardic. Review of Systems Review of Systems: All systems reviewed & are unremarkable except as noted in HPI and below Constitutional: Constitutional: Denies body ache(s) and Denies excessive sweating Eyes: Eyes: Denies blurry vision ENT: Denies Normal hearing present Cardiovascular: Cardiovascular: Reports chest pain Respiratory: Respiratory: Denies chest congestion Gastrointestinal: Gastrointestinal: Denies abdominal pain Genitourinary: Genitourinary: Denies hematuria Musculoskeletal: Musculoskeletal: Denies back pain Integumentary/Breasts: Skin/Breast: Denies dry skin Neurologic: Denies Normal hearing present and Denies Abnormal speech present Psychiatric: Psychiatric: Denies anxiety Endocrine: Endocrine: Denies excessive sweating Hematologic/Lymphatic: Hematologic/Lymphatic: Denies easy bleeding Allergic/Immunologic: Allergic/Immunologic: Denies GI upset with certain foods Exam Narrative: Awake alert oriented appears to be in no acute distress. Appears stated age Const: General: comfortable and no acute distress HENMT: Face/Nose/Sinus: Normal nares present Mouth: Yes moist mucous membranes Eyes: General: appearance normal, both eyes and all related structures Sclera: sclerae normal Neck: Neck: supple and no JVD Carotids: no bruits Chest: Other: No reproducible chest wall pain to palpation Resp: Effort & Inspection: normal respiratory effort Auscultation: clear to auscultation bilaterally Cardio: Rate: tachycardic Rhythm: regular rhythm Heart sounds: no murmurs GI: Inspection: non-distended Auscultation: normal bowel sounds Skin: General skin exam: normal color Neuro: Cranial nerves: No Normal hearing present Speech: normal speech and No Abnormal speech present Motor exam (neuro): 5/5 motor strength present throughout Extrem: General: normal to inspection Psych: Mental Status: mental status grossly normal Objective Data Vital Signs Vital Signs: Vital Signs - 24 hr 04/23/23 10:29 04/23/23 12:00 04/23/23 10:00 Temperature 36.7 C Pulse Rate 110 H 106 H 123 H Respiratory Rate 18 Blood Pressure 139/62 Pulse Oximetry 100 Oxygen Delivery 04/23/23 12:00 04/23/23 14:00 04/23/23 16:00 Temperature 36.7 C Pulse Rate 104 H 113 H 110 H Respiratory Rate 18 Bloo
[2023-04-24] MEDS: GABAPENTIN 100 MG CAPSULE PO (10:39)
[2023-04-24] MEDS: METOPROLOL TARTRATE TAB 25 MG, METOPROLOL TARTRATE TAB 50 MG 75 MG PO (10:40)
[2023-04-24] MEDS: ASPIRIN 81 MG ENTERIC TABLET PO (10:41)
[2023-04-24] MEDS: ROSUVASTATIN 10 MG TABLET PO (10:41)
[2023-04-24] MEDS: lisinopriL 20 MG TABLET PO (10:42)
[2023-04-24] MEDS: hydroCHLOROthiazide 12.5 MG CAPSULE PO (10:42)
--- NOTE | 2023-04-24 12:59 | PM.DS ---
DS: Admitting Diagnosis Discharge Date 04/24/2023 Admitting Diagnosis Chest pain Hyperthyroidism DS: Discharge Diagnosis Discharge Diagnosis (1) Hyperthyroidism: Code(s): E05.90 - Thyrotoxicosis, unspecified without thyrotoxic crisis or storm Status: Acute (2) Renal mass: Code(s): N28.89 - Other specified disorders of kidney and ureter Status: Acute (3) Chest pain: Code(s): R07.9 - Chest pain, unspecified Status: Acute (4) Hypertension: Code(s): I10 - Essential (primary) hypertension Status: Acute (5) Diabetes: Code(s): E11.9 - Type 2 diabetes mellitus without complications Status: Acute DS: Summary Hospital Course Hospital Course: Patient admitted with chest pain. troponin negative x2, consulted cardiology. They Recommended medical management with crestor 10 mg, aspirin 81 mg, continue metoprolol BID. TSH very low, T4 elevated, likely causing tachycardia. Thyroid US suggested evidence of thyroiditis. Patient will need outpatient endocrinology follow-up Renal mass found incidentally on CTA of the chest, radiology is recommending MRI of the abdomen. MRA obtained and showed renal cysts only, benign, no concerns, no follow up needed Metoprolol dose has been increased by Cardiology. Patient advised to follow-up with PCP regarding metoprolol dosing and also advised to follow-up with endocrinology as outpatient regarding hyperthyroidism. Time Spent with Patient Time attestation: Total time spent providing and/or coordinating discharge services: DS: Data Data Completed and Pending Labs on day of discharge: Labs from last 24 hours 04/24/23 04/24/23 04/23/23 07:50 04:17 20:00 WBC 5.6 RBC 3.94 L Hgb 9.9 L Hct 31.8 L MCV 80.7 MCH 25.1 L MCHC 31.1 L RDW 13.0 Plt Count 230 MPV 10.6 H Immature Gran % (Auto) 0.2 Neut % (Auto) 52.7 Lymph % (Auto) 34.0 [place] % (Auto) 11.0 H Eos % (Auto) 1.6 Baso % (Auto) 0.5 Lymph # (Auto) 1.89 [place] # (Auto) 0.6 Eos # (Auto) 0.1 Baso # (Auto) 0.0 Abs Immat Gran (auto) 0.01 Absolute Neuts (auto) 2.9 Absolute Nucleated RBC 0.0 Nucleated RBC % 0.0 Sodium 137 Potassium 3.5 Chloride 102 Carbon Dioxide 28 Anion Gap 7 L BUN 17 Creatinine 0.60 L Estim Creat Clear Calc 88 Estimated GFR > 60 Glucose 153 H POC Capillary Glucose 159 H 192 H Calcium 9.4 Total Bilirubin 0.3 AST 31 ALT 27 Alkaline Phosphatase 57 Total Protein 7.0 Albumin 3.8 04/23/23 16:33 WBC RBC Hgb Hct MCV MCH MCHC RDW Plt Count MPV Immature Gran % (Auto) Neut % (Auto) Lymph % (Auto) [place] % (Auto) Eos % (Auto) Baso % (Auto) Lymph # (Auto) [place] # (Auto) Eos # (Auto) Baso # (Auto) Abs Immat Gran (auto) Absolute Neuts (auto) Absolute Nucleated RBC Nucleated RBC % Sodium Potassium Chloride Carbon Dioxide Anion Gap BUN Creatinine Estim Creat Clear Calc Estimated GFR Glucose POC Capillary Glucose 299 H Calcium Total Bilirubin AST ALT Alkaline Phosphatase Total Protein Albumin Discharge Plan Discharge Attending physician on discharge: Cecily Arriaza Consulting providers: Julia Vann Discharging Clinician: Lincoln Elizabeth Patient Disposition: Home, Self-Care Activity: as tolerated Diet: heart healthy Patient Instructions: Chest Pain (DC), Hypertension (DC) Stand Alone Forms: General Discharge Information Follow-up/Referrals: Deidra Kwok DO [Physician] - Mir Floyd MD [Physician] - Elis Solorio MD [Physician] - Tammy Call DO [Physician] - Discharge Medications: New aspirin 81 mg Tablet,Delayed Release (Dr/Ec) 81 mg PO QAM 30 Days Qty: 30 0RF rosuvastatin [Crestor] 10 mg Tablet 10 mg PO QAM 30 Days Qty: 30 0RF metoprolol tartrate [Lopressor] 50 mg tablet 50 mg PO BID 30 Days
[2023-04-25 05:14] LABS: Glucose Point of Care 198 mg/dl (65-105)
[2023-04-27 03:25] LABS: Thyroid Peroxidase Antibodies 257 IU/mL (<9)
== END 2023-04-24 13:29 | disposition home or self-care (01) ==
LOC: ANHED 06:29 → ANHIMU 07:15
PROVIDERS: Internal Medicine; Admitting Provider Student in an Organized Health Care Education/Training Program; Emergency Provider Emergency Medicine; PCP Family Medicine; Visit Provider Hospitalist
DX: E05.90 Thyrotoxicosis, unspecified without thyrotoxic crisis or storm (principal); R07.9 Chest pain, unspecified; I10 Essential (primary) hypertension; E11.9 Type 2 diabetes mellitus without complications; E03.9 Hypothyroidism, unspecified; R06.02 Shortness of breath; R11.2 Nausea with vomiting, unspecified; Z20.822 Contact with and (suspected) exposure to COVID-19; N28.1 Cyst of kidney, acquired; R94.31 Abnormal electrocardiogram [ECG] [EKG]; Z90.49 Acquired absence of other specified parts of digestive tract; Z79.84 Long term (current) use of oral hypoglycemic drugs; Z79.85 Long-term (current) use of injectable non-insulin antidiabetic drugs; Z79.899 Other long term (current) drug therapy; Z83.3 Family history of diabetes mellitus; Z82.49 Family history of ischemic heart disease and other diseases of the circulatory system
CPT/HCPCS: 36415; 71046; 71275; 74183; 76536; 78452; 80053; 82948; 83036; 83690; 83880; 84443; 84484; 85025; 85027; 85610; 85730; 86376; 87636; 93005; 93017; 96374; 99285; A9270; A9502; A9577; G0378; J1815; J2405; J2785; Q9967

== ENCOUNTER 2024-03-25 15:08 | Emergency (ER) | payer OTHER, SELFPAY ==
--- NOTE | 2024-03-25 15:13 | ED.FEMALEGU ---
HPI - Female Genitourinary General Chief complaint: Urogenital-Female Stated complaint: UTI SYMPTOMS Time Seen by Provider: 03/25/24 15:14 Source: patient Mode of arrival: ambulatory Limitations: no limitations History of Present Illness HPI Narrative: Tete is a 59-year-old female patient presenting to the clinic today with complaints of possible urinary tract infection. She reports she has left-sided flank pain that started around 3:00 p.m. yesterday and now the pain is radiating to the left upper quadrant. Does have associated nausea. Last bowel movement was today and normal for the patient. Denies any blood in her stool. Denies any vomiting. States the pain is sharp and stabbing in nature and constant. Rates the pain 5/10 currently. She is type 2 diabetic. Blood sugar was 270 in the clinic today. Denies any urinary symptoms. No fever or chills. Related Data Home Medications Medication Instructions Recorded Confirmed gabapentin 100 mg capsule 100 mg PO DAILY 04/21/23 03/25/24 lisinopril 20 1 tablet PO DAILY 04/21/23 03/25/24 mg-hydrochlorothiazide 12.5 mg tablet omeprazole 40 mg capsule,delayed 40 mg PO DAILY 03/25/24 03/25/24 release propranolol 20 mg tablet 20 mg PO BID 03/25/24 03/25/24 Allergies Allergy/AdvReac Type Severity Reaction Status Date / Time No Known Allergies Allergy Unknown Verified 03/25/24 15:14 Review of Systems Review of Systems: Pertinent positives per HPI. Patient denies any fever, chills, rash, headache, visual changes, dizziness, cough, runny nose, sore throat, shortness of breath, chest pain, palpitations, nausea, vomiting, diarrhea, constipation, or any urinary issues. [facility] Past Medical History Medical History Diabetes HTN (hypertension) Hypothyroidism Surgical History Surgical History Hx of cholecystectomy Family History Family History Mother Diabetes mellitus Hypertension Father Congestive heart failure Social History Social History Smoking status: Never smoker Alcohol intake: never Substance use: never Lack of Transportation: No Lack of Food: Never True Current Housing: I Have Housing Concerned About Future Housing: No Difficulty Paying Gas/Electric Bills: No Difficulty Paying for Meds: No Currently Unemployed: No Education: Bachelor's Degree Difficulty w/ Childcare or Family Care: No Living arrangements: with family Gender identity (if verbalized by the patient): Female Spiritual care concerns: No Comments At the time of my signature, I reviewed and agree with the nursing past medical, surgical, social, and family history. There is no relevant family history pertinent to the patient complaint. Exam Narrative: General: Well-developed, well nourished, in no apparent distress. Head: Normocephalic, atraumatic. Cardio: Regular rate and rhythm, s1 and s2 normal, no murmur appreciated. Resp: Clear to auscultation bilaterally, no rhonchi, rales, wheezing or rubs. Abdomen: Soft, pliable, bowel sounds present in all quadrants, left upper quadrant tender to palpation, no organomegly, no CVAT tenderness. Course Course Emergency Course: Portions of this record may have been created with voice recognition software. Level of Care: Express Care Visit Vital Signs Vital signs: Vital Signs Temperature 36.9 C 03/25/24 15:23 Pulse Rate 86 03/25/24 15:23 Respiratory Rate 16 03/25/24 15:23 Blood Pressure 175/80 H 03/25/24 15:23 Pulse Oximetry 100 03/25/24 15:23 Temperature 36.9 C 03/25/24 15:23 Pulse Rate 86 03/25/24 15:23 Respiratory Rate 16 03/25/24 15:23 Blood Pressure 175/80 H 03/25/24 15:23 Pulse Oximetry 100 03/25/24 15:23 Vital signs r
[2024-03-25 15:23] VITALS: BP 175/80; PULSE 86; RESP 16; TEMP 36.9; O2SAT 100
[2024-03-25] MEDS: ONDANSETRON HCL ODT 4 MG TABLET PO (15:32)
[2024-03-25 15:33] LABS: EDUAAPPEAR Clear; EDUABILI Negative; EDUABLOOD Negative; EDUACOLOR1 Yellow; EDUAGLUCOSE 3+; EDUAKETONE 1+; EDUALEUKO Negative; EDUANITRATE Negative; EDUAPROTEIN Trace; EDUAUROBILI 0.2
== END 2024-03-25 15:35 | disposition short-term general hospital (02) ==
PROVIDERS: Emergency Provider Nurse Practitioner Family; PCP Family Medicine
DX: R10.9 Unspecified abdominal pain (principal); R10.12 Left upper quadrant pain; R81 Glycosuria; R11.0 Nausea; E11.9 Type 2 diabetes mellitus without complications; I10 Essential (primary) hypertension; E03.9 Hypothyroidism, unspecified
CPT/HCPCS: 81003; 99213; A9270; G0463

== ENCOUNTER 2024-03-25 16:01 | Emergency (ER) | payer OTHER, SELFPAY ==
--- NOTE | ~2024-03-25 | CT_ITS ---
EXAMINATION: CT abdomen pelvis w con DATE: 03/25/2024 18:42 INDICATION: Left upper quadrant abdominal pain and left flank tenderness TECHNIQUE: Computed tomography (CT) of the abdomen and pelvis was performed with 100 mL Omnipaque-350 intravenous contrast. Automated exposure control and iterative reconstruction technique were employe d. The dose-length product was 798.79 mGy-cm. COMPARISON: MR dated 04/22/2023 FINDINGS: Minimal dependent atelectasis in bilateral lower lobes. Heart size is normal. No pericardial or pleur al effusion. Diffuse hepatic steatosis with more focal fat at the ligamentum teres. Cholecystectomy c lips the gallbladder fossa. Spleen, pancreas and bilateral adrenal glands are normal. Bilateral renal cysts the larger on the left measuring 2.4 cm. 3 mm nonobstructing stone at the upper pole of the ri ght kidney. No other urolithiasis or hydronephrosis. Normal anatomic variant retroaortic left renal v ein. There are few diverticula along the descending and sigmoid colon without adjacent inflammatory s tranding to suggest diverticular colitis. Small bowel and appendix are normal. Bladder is normal. The uterus in bilateral ovaries are not identified and have likely been surgically resected. No free int raperitoneal gas or fluid. No pathologically enlarged abdominal or pelvic lymphadenopathy. Moderate t o severe mid thoracic spondylosis with mild anterior wedging at T6-T8. IMPRESSION: 1. 3 mm nonobstructing right renal stone. No acute intra-abdominal/pelvic process. Reviewed, dictated and finalized at location [facility]. IMPRESSION: 1. 3 mm nonobstructing right renal stone. No acute intra-abdominal/pelvic proce ss.
[2024-03-25 16:17] VITALS: BP 183/77; PULSE 86; RESP 17; TEMP 36.6; O2SAT 100
[2024-03-25 16:56] LABS: Basophils Absolute Auto 0.1 K/mm3 (0.0-0.1); Basophils Percent Auto 0.5 % (0.2-1.2); Eosinophils Absolute Auto 0.1 K/mm3 (0-0.3); Eosinophils Percent Auto 0.5 % (0-4.4); Hematocrit 39.3 % (37.0-47.0); Hemoglobin 12.7 g/dL (12.0-15.0); Immature Granulocyte Absolute 0.04 K/mm3 (0.00-0.031); Immature Granulocyte Percent A 0.4 % (0-0.5); Lymphocytes Absolute Auto 2.19 K/mm3 (0.9-3.2); Lymphocytes Percent Auto 22.4 % (18.3-44.2); Mean Corpuscular HGB Conc 32.3 g/dl (32-36); Mean Corpuscular Hemoglobin 26.2 pg (26-34); Mean Platelet Volume 9.7 fl (7.4-10.4); Monocytes Absolute Auto 0.5 K/mm3 (0.1-0.6); Monocytes Percent Auto 5.2 % (2.6-8.5); Neutrophils Absolute Auto 6.9 K/mm3 (1.3-6.7); Platelet Count Result 297 k/mm3 (150-375); Red Blood Count 4.85 M/mm3 (4.2-5.4); Red Cell Distribution Width 14.3 % (11.5-14.5); White Blood Count 9.8 K/mm3 (4.5-10.0)
[2024-03-25 17:04] LABS: Add Urine Microscopic? YES; Appearance Urine Clear (Clear); Bacteria Urine None Seen /hpf; Bilirubin Urine Negative (Negative); Blood Urine Negative (Negative); Color Urine Yellow (Yellow); Glucose Urine UA 2+ mg/dL (Negative); Ketones Urine 2+ mg/dL (Negative); Leukocyte Esterase Ur Negative LEU/UL (Negative); Nitrate Urine Negative (Negative); Non Pathogenic Casts 0-2; Protein Urine Trace mg/dL (Negative); RBC Urine 0-2 /hpf (0-2); Specific Grav Ur 1.024 (1.001-1.035); Squamous Epithelial Cell Urine Few /hpf (Few); WBC Urine 0-5 /hpf (0-3); pH Urine 7.5 (5.0-9.0)
[2024-03-25 17:08] LABS: Alanine Aminotransferase 17 U/L (6-35); Albumin Level 4.9 g/dL (3.5-5.1); Alkaline Phosphatase 113 U/L (38-126); Anion Gap 12 mmol/L (4-12); Aspartate Amino Transferase 25 U/L (14-36); Bilirubin,Total 0.6 mg/dL (0.2-1.3); Blood Urea Nitrogen 10 mg/dL (7-17); Calcium 9.4 mg/dL (8.4-10.2); Carbon Dioxide 29 mmol/L (22-30); Chloride 93 mmol/L (98-107); Estimated CRCL calculation 79 ml/min; Estimated Glomerular Filt Rate > 60; Glucose 220 mg/dL (65-110); Lipase 47 U/L (23-300); Potassium 3.8 mmol/L (3.4-5.0); Sodium 134 mmol/L (137-145)
--- NOTE | 2024-03-25 17:47 | ED.ABDPAIN ---
HPI - Abdominal Pain General Chief Complaint: Abdominal Pain Stated Complaint: L flank pain, LLQ pain Time Seen by Provider: 03/25/24 17:03 Source: patient Mode of arrival: ambulatory Limitations: no limitations History of Present Illness HPI narrative: This is a 59-year-old female with PMH of insulin-dependent diabetes who presents to the ED for chief complaint of left flank and left upper abdominal pain beginning yesterday evening. 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 She was seen urgent care today who referred her here for further evaluation. Patient states that the area to her left upper quadrant is tender. She denies any injuries. endorses mild nausea but no vomiting. Denies fevers, chills, diarrhea, chest pain, shortness of breath, urgency , dysuria, hematuria. Related Data Home Medications Medication Instructions Recorded Confirmed gabapentin 100 mg capsule 100 mg PO DAILY 04/21/23 03/25/24 lisinopril 20 1 tablet PO DAILY 04/21/23 03/25/24 mg-hydrochlorothiazide 12.5 mg tablet omeprazole 40 mg capsule,delayed 40 mg PO DAILY 03/25/24 03/25/24 release propranolol 20 mg tablet 20 mg PO BID 03/25/24 03/25/24 Allergies Allergy/AdvReac Type Severity Reaction Status Date / Time No Known Allergies Allergy Unknown Verified 03/25/24 15:14 Review of Systems Review of Systems: All systems as dictated in [facility] Past Medical History Medical History Diabetes HTN (hypertension) Hypothyroidism Surgical History Surgical History Hx of cholecystectomy Family History Family History Mother Diabetes mellitus Hypertension Father Congestive heart failure Social History Social History Smoking status: Never smoker Alcohol intake: never Substance use: never Lack of Transportation: No Lack of Food: Never True Current Housing: I Have Housing Concerned About Future Housing: No Difficulty Paying Gas/Electric Bills: No Difficulty Paying for Meds: No Currently Unemployed: No Education: Bachelor's Degree Difficulty w/ Childcare or Family Care: No Living arrangements: with family Gender identity (if verbalized by the patient): Female Spiritual care concerns: No Exam Narrative: GENERAL: Well-appearing, well-nourished, and in no acute distress. HEAD: Normocephalic, atraumatic. EYES: PERRLA and EOMI. ENT: Nares clear, no rhinorrhea or epistaxis. Mucous membranes moist. Oropharynx without tonsillar hypertrophy exudate or other lesions. NECK: Supple. No adenopathy or masses. CHEST: No respiratory distress. Clear to auscultation. No wheezes rales or rhonchi HEART: Regular rate and rhythm. No murmur heard. Normal peripheral pulses. ABDOMEN: mild left flank and left upper quadrant tenderness present. Soft, otherwise nontender, nondistended, normal active bowel sounds. MSK: Normal range of motion. No edema. SKIN: Warm, dry, no rash. NEURO: Alert and oriented x4. No focal deficits. PSYCH: Normal mood and affect. Course Vital Signs Vital signs: Vital Signs Temperature 97.8 F 03/25/24 16:17 Pulse Rate 86 03/25/24 16:17 Respiratory Rate 17 03/25/24 16:17 Blood Pressure 183/77 H 03/25/24 16:17 Pulse Oximetry 100 03/25/24 16:17 Oxygen Delivery Room Air 03/25/24 16:17 Temperature 97.8 F 03/25/24 16:17 Pulse Rate 87 03/25/24 19:38 Respiratory Rate 18 03/25/24 19:38 Blood Pressure 144/81 H 03/25/24 19:38 Pulse Oximetry 96 03/25/24 19:38 Oxygen Delivery Room Air 03/25/24 16:17 MDM - Abdominal Pain MDM Narrative Medical decision making narrative: this is a 59-year-old female who presents to the ED with chief complaint left flank pain. Vitals are normal. Exam shows some mild
[2024-03-25] MEDS: MORPHINE SULFATE (*CRX) 4 MG/ML INJ IV PUSH (18:10)
[2024-03-25] MEDS: ONDANSETRON INJ 4 MG/2 ML VIAL IV PUSH (18:10)
--- NOTE | 2024-03-25 19:12 | ECG_ITS ---
Test Date: 2024-03-25 19:20:58 Measurements Intervals [place] Rate: 83 P: 50 ID: 144 QRS: 5 QRSD: 88 T: 27 QT: 379 QTc: 447 Interpretive Statements SINUS RHYTHM POSSIBLE LEFT ATRIAL ENLARGEMENT DELAYED PRECORDIAL R/S TRANSITION NONSPECIFIC T-WAVE ABNORMALITY- ANT/INF LEADS BASELINE ARTIFACT- I, II, AVR, AVL, AVF BORDERLINE ECG No previous ECG available for comparison Electronically Signed On 03-25-2024 20:38:56 CDT by Marcelo Hoover D.O.
[2024-03-25 19:38] VITALS: BP 144/81; PULSE 87; RESP 18; O2SAT 96
== END 2024-03-25 19:38 | disposition home or self-care (01) ==
PROVIDERS: Physician Assistant; Emergency Provider Physician Assistant
DX: R10.12 Left upper quadrant pain (principal); I10 Essential (primary) hypertension; E11.9 Type 2 diabetes mellitus without complications; E03.9 Hypothyroidism, unspecified; Z90.49 Acquired absence of other specified parts of digestive tract; N20.0 Calculus of kidney; Z79.82 Long term (current) use of aspirin; Z79.4 Long term (current) use of insulin; Z79.899 Other long term (current) drug therapy
CPT/HCPCS: 36415; 74177; 80053; 81001; 81003; 83690; 85025; 93005; 96374; 96375; 99284; A9270; J2270; J2405; Q9967

== ENCOUNTER 2024-04-11 18:16 | Emergency (ER) | payer SELFPAY ==
--- NOTE | ~2024-04-11 | CT_ITS ---
EXAMINATION: CT abdomen pelvis wo con DATE: 04/11/2024 19:15 INDICATION: Flank pain. History of kidney stones. TECHNIQUE: Computed tomography (CT) of the abdomen and pelvis was performed without intravenous contr ast. Automated exposure control and iterative reconstruction technique were employed. Exam dose: 107 5.50 mGy-cm total exam DLP. COMPARISON: 03/25/2024 CT abdomen pelvis FINDINGS: The lung bases are clear. Normal heart size. No pericardial or pleural effusion. Status post cholecystectomy. The liver, spleen, pancreas, bile ducts and pancreatic duct and adrenal glands are unremarkable. Approximately 3 mm nonobstructing left renal calculus. No other urinary tract calculus or hydroureter onephrosis is detected. Relatively stable appearing left renal probable cyst Normal caliber of the abdominal aorta. No intraperitoneal or retroperitoneal or pelvic mass lesion or adenopathy or ascites. Small sliding hiatal hernia Mild diverticulosis of sigmoid and descending colon; no CT evidence of diverticulitis. No bowel obstr uction or intraperitoneal free air. No evidence of appendicitis. Minimal grade 1 anterolisthesis at L4-5 due to degenerative change at the facet joints. No suspicious osteolytic or osteoblastic lesions are noted. IMPRESSION: 3 mm nonobstructing right renal calculus Renal cysts, better demonstrated on the 03/25/2024 CT examination with IV contrast material Status post cholecystectomy Small sliding hiatal hernia Normal appendix Diverticulosis of left colon; no CT evidence of diverticulitis Reviewed, dictated and finalized at [facility]. Reviewed, dictated and finalized at location [facility]. IMPRESSION: 3 mm nonobstructing right renal calculus Renal cysts, better demonstrated on the 03/25/2024 CT examination with IV contra st material Status post cholecystectomy Small sliding hiatal hernia Normal appendix Diverticulosis of left colon; no CT evidence of diverticulitis
[2024-04-11 18:17] VITALS: BP 173/79; PULSE 81; RESP 16; TEMP 36.5; O2SAT 100
[2024-04-11 19:00] VITALS: BP 121/64; PULSE 79; RESP 16; TEMP 36.6; O2SAT 95
[2024-04-11 19:15] LABS: Basophils Absolute Auto 0.1 K/mm3 (0.0-0.1); Basophils Percent Auto 0.7 % (0.2-1.2); Eosinophils Absolute Auto 0.1 K/mm3 (0-0.3); Immature Granulocyte Absolute 0.03 K/mm3 (0.00-0.031); Immature Granulocyte Percent A 0.4 % (0-0.5); Lymphocytes Absolute Auto 2.73 K/mm3 (0.9-3.2); Lymphocytes Percent Auto 33.8 % (18.3-44.2); Mean Corpuscular HGB Conc 32.4 g/dl (32-36); Mean Corpuscular Hemoglobin 26.7 pg (26-34); Mean Corpuscular Volume 82.2 fl (80-100); Mean Platelet Volume 10.3 fl (7.4-10.4); Monocytes Absolute Auto 0.5 K/mm3 (0.1-0.6); Monocytes Percent Auto 6.3 % (2.6-8.5); Neutrophils Absolute Auto 4.7 K/mm3 (1.3-6.7); Neutrophils Percent Auto 57.8 % (45.5-73.1); Platelet Count Result 264 k/mm3 (150-375); Red Cell Distribution Width 14.6 % (11.5-14.5); White Blood Count 8.1 K/mm3 (4.5-10.0)
[2024-04-11 19:18] LABS: Add Urine Microscopic? NO; Appearance Urine Clear (Clear); Bilirubin Urine Negative (Negative); Blood Urine Negative (Negative); Color Urine Yellow (Yellow); Glucose Urine UA Negative (Negative); Ketones Urine Trace mg/dL (Negative); Leukocyte Esterase Ur Negative LEU/UL (Negative); Nitrate Urine Negative (Negative); Protein Urine Negative (Negative); Specific Grav Ur 1.025 (1.001-1.035); Urobilinogen Urine 0.2 mg/dL (<2.0); pH Urine 6.5 (5.0-9.0)
[2024-04-11] MEDS: SODIUM CHLORIDE 0.9% IV 1,000 ML 999 ML IV CONT (19:19)
[2024-04-11] MEDS: MORPHINE SULFATE (*CRX) 4 MG/ML INJ IV PUSH (19:20)
[2024-04-11] MEDS: ONDANSETRON INJ 4 MG/2 ML VIAL IV PUSH (19:20)
--- NOTE | 2024-04-11 19:23 | ED.GENADULT ---
HPI - General Adult General Chief complaint: Abdominal Pain Stated complaint: left flank pain Time Seen by Provider: 04/11/24 18:29 History of Present Illness HPI narrative: patient is 59-year-old female who presents emergency department with chief complaint of left flank pain. Patient reports she was seen in the emergency department several days ago and diagnosed with flank pain the patient was found have a right-sided kidney stone was nonobstructing and was still in the kidney the patient reports that today she was having worsening pain reports that is not improved by anything patient denies fever denies dysuria Related Data Home Medications Medication Instructions Recorded Confirmed gabapentin 100 mg capsule 100 mg PO DAILY 04/21/23 03/25/24 lisinopril 20 1 tablet PO DAILY 04/21/23 03/25/24 mg-hydrochlorothiazide 12.5 mg tablet omeprazole 40 mg capsule,delayed 40 mg PO DAILY 03/25/24 03/25/24 release propranolol 20 mg tablet 20 mg PO BID 03/25/24 03/25/24 Allergies Allergy/AdvReac Type Severity Reaction Status Date / Time No Known Allergies Allergy Unknown Verified 04/11/24 19:02 Review of Systems Review of Systems: A 10 system review of systems was completed on the patient and is negative except for what is stated in the HPI. Nursing and ancillary documentation was reviewed. [facility] Past Medical History Medical History Diabetes HTN (hypertension) Hypothyroidism Surgical History Surgical History Hx of cholecystectomy Family History Family History Mother Diabetes mellitus Hypertension Father Congestive heart failure Social History Social History Smoking status: Never smoker Alcohol intake: never Substance use: never Lack of Transportation: No Lack of Food: Never True Current Housing: I Have Housing Concerned About Future Housing: No Difficulty Paying Gas/Electric Bills: No Difficulty Paying for Meds: No Currently Unemployed: No Education: Bachelor's Degree Difficulty w/ Childcare or Family Care: No Living arrangements: with family Gender identity (if verbalized by the patient): Female Spiritual care concerns: No Exam Narrative: GENERAL: Well-appearing, well-nourished, and in mild acute pain distress. HEAD: Normocephalic, atraumatic. EYES: PERRLA and EOMI. ENT: Nares clear, no rhinorrhea or epistaxis. Mucous membranes moist. NECK: Supple. CHEST: Clear to auscultation. No respiratory distress. HEART: Regular rate and rhythm. No murmur heard. Normal peripheral pulses. ABDOMEN: Soft, nontender, nondistended, normal active bowel sounds. EXTREMITIES: Normal range of motion. No edema. SKIN: Warm, dry, no rash. NEURO: No focal deficits. Alert and oriented x3. PSYCH: Normal mood and affect. Course Vital Signs Vital signs: Vital Signs Temperature 36.5 C 04/11/24 18:17 Pulse Rate 81 04/11/24 18:17 Respiratory Rate 16 04/11/24 18:17 Blood Pressure 173/79 H 04/11/24 18:17 Pulse Oximetry 100 04/11/24 18:17 Oxygen Delivery Room Air 04/11/24 18:17 Temperature 36.5 C 04/11/24 18:17 Pulse Rate 81 04/11/24 18:17 Respiratory Rate 16 04/11/24 18:17 Blood Pressure 173/79 H 04/11/24 18:17 Pulse Oximetry 100 04/11/24 18:17 Oxygen Delivery Room Air 04/11/24 18:17 Medical Decision Making [facility] Narrative Medical decision making narrative: differential diagnosis includes musculoskeletal pain, UTI, pyelonephritis, kidney stone, laboratory studies were obtained on the patient showed normal CBC urinalysis showed no evidence UTI only trace ketone CT scan showed a nonobstructing stone on the right evidence of diverticulosis without overt signs of diverticulitis
[2024-04-11 19:26] LABS: Alanine Aminotransferase 16 U/L (6-35); Albumin Level 4.7 g/dL (3.5-5.1); Alkaline Phosphatase 88 U/L (38-126); Anion Gap 10 mmol/L (4-12); Aspartate Amino Transferase 36 U/L (14-36); Bilirubin,Total 0.4 mg/dL (0.2-1.3); Blood Urea Nitrogen 15 mg/dL (7-17); Calcium 9.6 mg/dL (8.4-10.2); Carbon Dioxide 30 mmol/L (22-30); Chloride 98 mmol/L (98-107); Estimated CRCL calculation 71 ml/min; Estimated Glomerular Filt Rate > 60; Glucose 111 mg/dL (65-110); Potassium 3.6 mmol/L (3.4-5.0); Sodium 138 mmol/L (137-145)
[2024-04-11] MEDS: AMOXICILLIN/CLAVULANATE K 875-125 MG TAB 1 TABLET PO (21:10)
[2024-04-11] MEDS: ORPHENADRINE CITRATE 100 MG TABLET.ER PO (21:10)
[2024-04-11 22:00] VITALS: BP 114/64; PULSE 80; RESP 18; O2SAT 95
[2024-04-11 22:17] VITALS: BP 108/67; PULSE 82; RESP 15; TEMP 36.5; O2SAT 100
== END 2024-04-11 22:18 | disposition home or self-care (01) ==
PROVIDERS: Emergency Medicine; Emergency Provider Emergency Medicine; PCP Pediatrics Pediatric Cardiology
DX: K57.90 Diverticulosis of intestine, part unspecified, without perforation or abscess without bleeding (principal); E11.9 Type 2 diabetes mellitus without complications; I10 Essential (primary) hypertension; E03.9 Hypothyroidism, unspecified
CPT/HCPCS: 36415; 74176; 80053; 81003; 85025; 96361; 96374; 96375; 99284; A9270; J2270; J2405; J7030

== ENCOUNTER 2024-10-05 10:51 | Emergency (ER) | payer OTHER, SELFPAY ==
[2024-10-05 11:10] VITALS: BP 156/89; PULSE 95; RESP 16; TEMP 36.6; O2SAT 100
--- NOTE | 2024-10-05 11:17 | ED.URI ---
HPI - URI/Sore Throat General Chief Complaint: Upper Respiratory Infection Stated Complaint: fever/throat/cough Time Seen by Provider: 10/05/24 11:17 History of Present Illness HPI Narrative: 49-year-old female with history of diabetes presented for complaint of headache, body aches, sinus pressure/congestion, cough, fever/chills. onset 2 days. Started with diarrhea today.Denies sob, wheezing, n/v Or lethargy. taking Mucinex for symptoms. Related Data Home Medications ?Medication ?Instructions ?Recorded ?Confirmed ?Last Taken ?Type gabapentin 100 mg capsule 100 mg PO DAILY 04/21/23 03/25/24 04/20/23 09:00 History lisinopril 20 1 tablet PO DAILY 04/21/23 03/25/24 04/20/23 09:00 History mg-hydrochlorothiazide 12.5 mg tablet omeprazole 40 mg capsule,delayed 40 mg PO DAILY 03/25/24 03/25/24 Unknown History release propranolol 20 mg tablet 20 mg PO BID 03/25/24 03/25/24 Unknown History Allergies Allergy/AdvReac Type Severity Reaction Status Date / Time No Known Allergies Allergy Unknown Verified 04/11/24 19:02 Review of Systems Review of Systems: per HPI [facility] Past Medical History Medical History Hypothyroidism Diabetes HTN (hypertension) Surgical History Surgical History Hx of cholecystectomy Family History Family History Mother Diabetes mellitus Hypertension Father Congestive heart failure Social History Social History Smoking status: Never smoker Alcohol intake: never Substance use: never Lack of Transportation: No Lack of Food: Never True Current Housing: I Have Housing Concerned About Future Housing: No Difficulty Paying Gas/Electric Bills: No Difficulty Paying for Meds: No Currently Unemployed: No Education: Bachelor's Degree Difficulty w/ Childcare or Family Care: No Living arrangements: with family Gender identity (if verbalized by the patient): Female Spiritual care concerns: No Exam Narrative: GENERAL: well-appearing, no acute distress. EYES: conjunctivae clear ENT: Mucous membranes moist. TM pearly dwyer with normal light reflex bilaterally; no tragal tenderness. Oropharynx not erythematous without lesions. No drooling, no hoarseness, no trismus, uvula midline. No tripod positioning, hot potato voice, or soft palate swelling. NECK: Supple. No lymphadenopathy CHEST: Clear to auscultation, breath sounds equal. No respiratory distress, speaks in full sentences. HEART: Regular rate and rhythm. No murmur heard. SKIN: Warm, dry, no rash. NEURO: Alert and oriented x3. Course Course Emergency Course: Patient is aware of diagnosis, understands and agrees to treatment plan. Anticipatory guidance given. Patient agrees to follow-up as directed and is aware of reasons to seek care at the emergency department. Portions of this record may have been created with voice recognition software Level of Care: Express Care Visit Vital Signs Vital signs: Vital Signs Temperature 98 F 10/05/24 11:10 Pulse Rate 95 10/05/24 11:10 Respiratory Rate 16 10/05/24 11:10 Blood Pressure 156/89 H 10/05/24 11:10 Pulse Oximetry 100 10/05/24 11:10 Oxygen Delivery Room Air 10/05/24 11:10 Temperature 98 F 10/05/24 11:10 Pulse Rate 95 10/05/24 11:10 Respiratory Rate 16 10/05/24 11:10 Blood Pressure 156/89 H 10/05/24 11:10 Pulse Oximetry 100 10/05/24 11:10 Oxygen Delivery Room Air 10/05/24 11:10 MDM - URI/Sore Throat MDM Narrative Medical decision making narrative: negative flu COVID result reviewed with pt.Discussed Rx steroid may increase BS. she is agreeable. Advise supportive treatments. Patient is appropriate for outpatient treatment and follow-up. Differential Diagnosis Differential diagnosis: Likely upper respiratory infection, viral infection and pharyngitis Lab Data Labs: Lab Results 10/05/24 Range/Units 11:22 POC Influenza A Ag Negative (Negative) POC Influenza B Ag Negative (Negative) POC SARS CoV-2 Ag Negative (Negative) Discharge Plan Discharge Clinical Impression: Viral infection Patient Disposition: Home, Self-Care Condition: Stable Instructions: Antibiotic Form, Viral Syndrome (ED) Additional Instructions: Flu and COVID negative. Stay hydrated. Take small sips of fluid containing electrolytes frequently. Clear liquids (broth, jello, tea, sprite, pedialyte) [place] foods (bananas, rice, applesauce, toast, crackers) Avoid fatty, greasy, fried or spicy foods. Limit dairy until symptoms are improved. [id number] Imodium according to package directions probiotic such as align or lactobacillus to help with symptoms. Flonase spray and Zyrtec (or Claritin/Bobbi) over the counter Cough syrup may cause drowsiness; avoid driving or take it at night time. Tylenol 1000mg every 8 hours as needed for pain rest, fluids, and increase humidity of the air at home. Follow up with your primary care provider Go to the ER for worsening symptoms or concerns. Patient Language: [place] Prescriptions: New prednisone 20 mg tablet 40 mg PO DAILY 4 Days Qty: 8 0RF No Action omeprazole 40 mg capsule,delayed release(DR/EC) 40 mg PO DAILY propranolol 20 mg tablet 20 mg PO BID gabapentin 100 mg capsule 100 mg PO DAILY lisinopril-hydrochlorothiazide 20-12.5 mg tablet 1 tablet PO DAILY aspirin 81 mg Tablet,Delayed Release (Dr/Ec) 81 mg PO QAM 30 Days Qty: 30 0RF rosuvastatin [Crestor] 10 mg Tablet 10 mg PO QAM 30 Days Qty: 30 0RF insulin glargine [Lantus Solostar U-100 Insulin] 100 unit/mL (3 mL) insulin pen 35 unit subcut QAM 30 Days Qty: 10.5 0RF insulin aspart U-100 [Novolog FlexPen U-100 Insulin] 100 unit/mL (3 mL) insulin pen 5 unit subcut TID 30 Days Qty: 4.5 0RF orphenadrine citrate 100 mg tablet extended release 100 mg PO Q12H PRN (Reason: spasms) Qty: 20 0RF diclofenac potassium 50 mg tablet 50 mg PO TID PRN (Reason: pain) Qty: 30 0RF Follow-up/Referrals: 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
[2024-10-05 11:24] LABS: EDCOVIDSCREEN Negative (Negative); EDINFLUASCREEN Negative (Negative); EDINFLUBSCREEN Negative (Negative)
--- OUTSIDE RECORDS SUMMARY | 2024-10-05 11:43 | XMS_ITS | Encounter Summary ---
Author Organization [employer] Address 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
--- OUTSIDE RECORDS SUMMARY | 2024-10-05 11:43 | XMS_ITS | Data Portability ---
Author Organization [facility], Main Office Address [address] [place] [address] Assessment No assessment recorded. Plan of Treatment Reminders Order Date Submit Date Provider Last Modified By Organization Details Last Modified Time Details Appointments None recorded. Lab TSH, serum or plasma [address] (Lab), [address] [place] [address], [phone], 3 08:17:24 CMP, serum or plasma [address] (Lab), [address] [place] [address], [phone], 3 08:17:24 lipid panel, serum [address] (Lab), [address] [place] [address], [phone], 3 08:17:24 hemoglobin A1C, fingerstick 2022 023 NIVIA [facility] [address], [place], [address], 3 14:12:[address] referral - Please call the pt to make an appt. Thank you 2022 023 amanda Jones MD, [address] [facility], [place], [address], 3 20:02:30 endocrinolo gy referral - Pt has hyperthyroi dism and is symptomatic needs to be seen soon. 2022 023 [email or web address] 3 [place], [address] [facility], [place], [address], 3 09:33:56 Procedures None recorded. Surgeries None recorded. Imaging None recorded. Medication Orders omeprazole 40 mg capsule,del ayed release 2022 023 relenzoatib 3 [facility] [address] [place], [address], 3 12:10:41 Lantus Solostar U-100 Insulin 100 unit/mL (3 mL) subcutaneou s pen 2022 023 [facility] [address], [address] [place], [address], 3 12:15:57 lisinopril 20 mg-hydrochl orothiazide 12.5 mg tablet 2022 023 [facility] [address], [address] [place], [address], 3 10:01:00 metoprolol tartrate 50 mg tablet [address] [facility] [address] [facility] [address] [facility] [place], [address], 3 09:48:09 Patient TargetsNo targets recorded. Patient InstructionsNo instructions recorded. 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 Thank you Referring Physician: [facility], Encounter Date: 01/02/2023 Endocrinology Referral for H yperthyroidism Pt has hyperthyroidism and is symptomatic needs to be seen soon. Referring Physician: [facility], Encounter Date: 04/30/2023 Results Created Date Observation Date Name Description Value Unit Range Abnormal Flag Note LastModifiedBy Organization Detail LastModifiedTime 10/04/19 22 10/04/2021 hemog lobin A1C, kevin rstic k HgbA1C 10.9 Not Available [facility] [address], [place], [address], 10/04/2021 09:37:57 01/03/20 23 01/02/2023 hemog lobin A1C, kevin rstic k HgbA1C 8.9 Not Available [facility] [address], [place], [address], 01/02/2023 12:09:50 07/14/20 22 07/14/2022 imagi ng/di agnos tic resul t No observ ation record ed. [id number], [place], [address], 10/24/2022 08:55:48 12/21/19 23 12/20/2022 MAMMO , diagn ostic , digit al, bilat eral No observ ation record ed. [address] [facility] [address] [facility] [address], [place], [address], 12/20/2022 15:27:21 12/21/19 23 12/20/2022 US, breas t, bilat eral No observ ation record ed. [email or web address] [address], [place], [address], 12/31/2022 09:35:49 01/23/20 23 01/22/2023 XR, chest , 2 view No observ ation record ed. [address], [place], [address], 01/22/2023 08:25:00 01/23/20 23 01/22/2023 CT, head, w/o contr ast No observ ation record ed. [address], [place], [address], 01/22/2023 08:25:16 01/23/20 23 01/22/2023 CT, chest , w/ contr ast No observ ation record ed. [address], [place], [address], 01/22/2023 08:25:34 04/12/20 23 04/12/2023 stres s echoc ardio gram with doppl er color flow (PROC ) No observ ation record ed. [address] [address], [place], [address], 04/15/2023 08:49:40 04/21/20 23 04/21/2023 XR, chest , 2 view No observ ation record ed. [address] [address], [place], [address], 04/22/2023 11:23:26 04/21/20 23 04/21/2023 CT, chest , w/o contr ast No observ ation record ed. [address] [address], [place], [address], 04/22/2023 12:51:39 04/22/20 23 04/22/2023 MRI, abdom en + pelvi s, w/o contr ast No observ ation record ed. [address] [address], [place], [address], 04/22/2023 15:05:27 04/22/20 23 04/22/2023 US, thyro id No observ ation record ed. [address] [address], [place], [address], 04/22/2023 15:05:39 04/23/20 23 04/23/2023 cardi ac stres s test No observ ation record ed. [address] [place], [address], 04/23/2023 13:59:36 04/23/20 23 04/23/2023 cardi ac stres s test No observ ation record ed. [email or web address] [facility] [address] [facility] [address], [place], [address], 04/23/2023 15:14:56 Result Notes None recorded. Problems Name Problem SNOMED Code Status Onset Date Resolution Date Notes Provider Name and Address Organization Details Recorded Time Hyperesthesi a 59739182 Active Not Available [facility] 3 08:50:48 Abdominal pain 41693970 Active Not Available [facility] 3 08:50:48 Loss of hair 883624849 Active Not Available [facility] 3 08:50:48 Rib pain 168444090 Active Not Available [facility] 3 08:50:48 Right upper quadrant pain 287349880 Active Not Available [facility] 3 08:50:48 Hypertensive disorder 99990626 Active Not Available [facility] 3 08:50:48 Disorder of gallbladder 38676696 Active Not Available [facility] 3 08:50:48 Diabetes mellitus 07594006 Active Not Available [facility] 3 08:50:48 Pain of breast 68755484 Active 2022 Marimar Velasco RN [facility], [facility] 3 15:43:52 Type 2 diabetes mellitus without complication 825851855 Active 2022 Palma Gilbert MD [address] [facility] [address], [place], [address] , [facility] 3 12:09:48 Gastroesopha geal reflux disease 760681915 Active 2022 Palma Gilbert MD [address], [address], [place], [address] , [facility] 3 12:10:05 Pain of left breast 0450469024 Active 2022 Palma Gilbert MD [address], [address], [place], [address] , [facility] [place] [facility] 3 12:12:25 Essential hypertension 35332823 Active 2022 Palma Gilbert MD [address], [address], [place], [address] , [facility] 3 09:59:07 Tachycardia 9926258 Active 2022 EUFEMIA Saul, [facility] 3 10:11:04 Laboratory test result abnormal 587323830 Active 2022 EUFEMIA Saul null, [place] [facility] [place] [facility] 3 12:00:08 Hyperthyroid ism 41782770 Active 2022 Palma Gilbert MD [address], [address], [place], [address] , [facility] [place] [facility] 3 11:47:12 Graves' disease 549898195 Active 2022 Palma Gilbert MD [address], [address], [place], [address] , [facility] 3 09:50:04 Diabetic peripheral neuropathy 882586028 Active 2023 GIANFRANCO Matta [address], [address], [place], [address] , [facility] 4 09:52:05 Problem Notes None recorded. Procedures Surgical History Date Name Laterality Status Provider Name and Address Organization Details Recorded Time supracervical hysterectomy completed Not Available [facility] 10/24/2022 08:45:37 completed Not Available [facility] 0 10/24/2022 08:45:37 Shoulder completed Not Available [facility] 08:45:37 Cholecystectomy completed Not Available [facility] 10/24/2022 08:45:37 oophorectomy completed Not Available [facility] 10/24/2022 08:45:37 Imaging Results Imaging Date Name Status LastModified by Organization Details LastModified Time 07/14/2022 imaging/diagnostic result completed [id number], [place], [address], 10/24/2022 08:55:48 12/20/2022 MAMMO, diagnostic, digital, bilateral completed [address] [facility] [address], [place], [address], 12/20/2022 15:27:21 12/20/2022 US, breast, bilateral completed [email or web address] [address], [place], [address], 12/31/2022 09:35:49 01/22/2023 XR, chest, 2 view completed [address], [place], [address], 01/22/2023 08:25:00 01/22/2023 CT, head, w/o contrast completed [address], [place], [address], 01/22/2023 08:25:16 01/22/2023 CT, chest, w/ contrast completed [address], [place], [address], 01/22/2023 08:25:34 04/12/2023 stress echocardiogram with doppler color flow (PROC) completed [address], [place], [address], 04/15/2023 08:49:40 04/21/2023 XR, chest, 2 view completed [address], [place], [address], 04/22/2023 11:23:26 04/21/2023 CT, chest, w/o contrast completed [address], [place], [address], 04/22/2023 12:51:39 04/22/2023 MRI, abdomen + pelvis, w/o contrast completed [address] [place] [address], [address], 04/22/2023 15:05:27 04/22/2023 US, thyroid completed [address], [address], 04/22/2023 15:05:39 04/23/2023 cardiac stress test completed [address], [address], 04/23/2023 13:59:36 04/23/2023 cardiac stress test completed [address] [address], [place], [address], 04/23/2023 15:14:56 Procedure Notes None recorded. Medical Equipment None Reported. Allergies Allergen ID Allergen Name Allergen Category Reaction Reaction Severity Criticality Documentation Date Start Date Code Code System Note Provider Name and Address Organization Details Recorded Time 56472 Trulicity medicatio n edema moderate Not available 10/24/2022 71819 96 RxNorm [facility] Available [facility] 08:55:42 Medications Name Sig Start Date Stop Date Status Note LastModified by Organization Details LastModified Time relion pen needles 31g x 8mm 31g x 8 mm misc active Not Available Not Available No t Available cyclobenzap rine 10 mg tablet Take 1 tablet 3 times a day by oral route. active Not Available Not Available No t Available amoxicillin 500 mg capsule TAKE 1 CAPSULE BY MOUTH EVERY 8 HOURS UNTIL GONE 01/02 completed Not Available Not Available Not Available terconazole 0.4 % vaginal cream INSERT 1 APPLICATO RFUL VAGINALLY EVERY DAY AT BEDTIME FOR 7 DAYS 01/10 completed Not Available Not Available Not Available doxycycline hyclate 100 mg capsule 01/27 completed Not Available Not Available Not Available Carafate 1 gram tablet Take 1 tablet 4 times a day by oral route. 01/27 completed Not Available Not Available Not Available lisinopril 20 mg-hydrochl orothiazide 12.5 mg tablet active Not Available Not Available Not Available ibuprofen 800 mg tablet 08/07 completed Not Available Not Available Not Available fluconazole 150 mg tablet TAKE 1 TABLET BY MOUTH ONCE DAILY 01/10 completed Not Available Not Available Not Available clarithromy judie 500 mg tablet Take 1 tablet every 12 hours by oral route. active Not Available Not Available No t Available hydrocodone 5 mg-acetamin ophen 325 mg tablet TAKE 1 TABLET BY MOUTH EVERY 4 TO 6 HOURS NEEDED FOR PAIN 12/18 completed Not Available Not Available Not Available lisinopril 20 mg tablet 08/07 completed Not Available Not Available Not Available metronidazo le 500 mg tablet 11/05 completed Not Available Not Available Not Available acetaminoph en 300 mg-codeine 30 mg tablet TAKE 1 TO 2 TABLETS BY MOUTH EVERY 4 HOURS NEEDED FOR PAIN 01/02 completed Not Available Not Available Not Available ciprofloxac in 500 mg tablet TAKE 1 TABLET BY MOUTH EVERY 12 HOURS 03/02 completed Not Available Not Available Not Available sulfamethox azole 800 mg-trimetho prim 160 mg tablet 01/27 completed Not Available Not Available Not Available hydrocodone 10 mg-acetamin ophen 325 mg tablet Take 1 tablet every 4 hours by oral route as needed. active Not Available Not Available No t Available omeprazole 40 mg capsule,del ayed release Take 1 capsule every day by oral route. active Not Available Not Available No t Available aspirin 81 mg tablet,millicent yed release active Not Available Not Available Not Available tramadol 50 mg tablet TAKE 1 TO 2 TABLETS BY MOUTH EVERY 6 HOURS NEEDED 01/10 completed Not Available Not Available Not Available propranolol 40 mg tablet TAKE 1 TABLET BY MOUTH THREE TIMES A DAY active Not Available Not Available No t Available amoxicillin 875 mg tablet Take 1 tablet every 12 hours by oral route for 14 days. active Not Available Not Available No t Available dicyclomine 20 mg tablet 01/27 completed Not Available Not Available Not Available hydrocodone 7.5 mg-acetamin ophen 325 mg tablet 01/27 completed Not Available Not Available Not Available oseltamivir 75 mg capsule TAKE 1 CAPSULE BY MOUTH EVERY 12 HOURS FOR 5 DAYS 01/02 completed Not Available Not Available Not Available lisinopril 10 mg tablet TAKE 1 TABLET BY MOUTH ONCE DAILY 02/14 completed Not Available Not Available Not Available metoprolol tartrate 50 mg tablet TAKE 1 TABLET BY MOUTH TWICE DAILY 05/24 completed Not Available Not Available Not Available nystatin-tr iamcinolone 100,000 unit/g-0.1 % topical cream 11/05 completed Not Available Not Available Not Available omeprazole 20 mg capsule,del ayed release Take 1 capsule every day by oral route. 11/05 completed Not Available Not Available Not Available gabapentin 100 mg capsule active Not Available Not Available Not Available methylpredn isolone 4 mg tablets in a dose pack 11/05 completed Not Available Not Available Not Available methimazole 10 mg tablet TAKE 2 TABLETS BY MOUTH ONCE DAILY active Not Available Not Available No t Available propranolol 20 mg tablet TAKE 1 TABLET BY MOUTH THREE TIMES DAILY active Not Available Not Available No t Available ondansetron 4 mg disintegrat ing tablet 11/05 completed Not Available Not Available Not Available fluticasone propionate 50 mcg/actuati on nasal spray,suspe nsion active Not Available Not Available Not Available metformin ER 500 mg tablet,exte nded release 24 hr TAKE 2 TABLETS BY MOUTH TWICE DAILY 01/02 completed Not Available Not Available Not Available spironolact one 50 mg tablet Take 1 tablet by mouth once daily 04/30 completed Not Available Not Available Not Available amoxicillin 875 mg-potassiu m clavulanate 125 mg tablet active Not Available Not Available Not Available insulin lispro (U-100) 100 unit/mL subcutaneou s pen INJECT 6 UNITS SUBCUTANE OUSLY THREE TIMES DAILY WITH MEALS active Not Available Not Available No t Available pen needle, diabetic 31 gauge x 5/16 USE TO INJECT 1-4 TIMES DAILY DIRECTED active Not Available Not Available No t Available cyclobenzap rine 5 mg tablet 11/05 completed Not Available Not Available Not Available rosuvastati n 10 mg tablet TAKE 1 TABLET BY MOUTH ONCE DAILY active Not Available Not Available No t Available metoprolol tartrate 25 mg tablet 05/24 completed Not Available Not Available Not Available Mucinex DM 30 mg-600 mg tablet,exte nded release 12 hr active Not Available Not Available Not Available metformin ER 500 mg 24 hr tablet,exte nded release (gastric retention) take 2 tablets by mouth twice daily 08/25 completed Not Available Not Available Not Available Januvia 100 mg tablet Take 1 tablet every day by oral route. active Not Available Not Available No t Available Lantus Solostar U-100 Insulin 100 unit/mL (3 mL) subcutaneou s pen INJECT 35 UNITS SUBCUTANE OUSLY NIGHTLY active Not Available Not Available No t Available Onglyza 5 mg tablet Take 1 tablet every day by oral route. active Not Available Not Available No t Available Suprep Bowel Prep Kit 17.5 gram-3.13 gram-1.6 gram oral solution 08/07 completed Not Available Not Available Not Available Janumet XR 100 mg-1,000 mg tablet,exte nded release Take 1 tablet every day by oral route. active Not Available Not Available No t Available Jardiance 10 mg tablet one po daily 01/27 completed Not Available Not Available Not Available Jardiance 25 mg tablet TAKE 1 TABLET BY MOUTH ONCE DAILY active Not Available Not Available No t Available Trulicity 0.75 mg/0.5 mL subcutaneou s pen injector Inject 0.5 mL every week by subcutane ous route. active Not Available Not Available No t Available Humalog KwikPen U-200 Insulin 200 unit/mL (3 mL) subcutaneou s INJECT 6 TO 16 UNITS TOTAL UNDER THE SKIN THREE TIMES A DAY WITH MEALS active Not Available Not Available No t Available Ozempic 0.25 mg or 0.5 mg (2 mg/1.5 mL) subcutaneou s pen injector active Not Available Not Available Not Available metoprolol succinate ER 25 mg capsule sprinkle, ext. release 24 hr Take 1 capsule twice a day by oral route. 02/14 completed Not Available Not Available Not Available insulin glargine-yf gn (U-100) 100 unit/mL (3 mL) subcutaneou s pen active Not Available Not Available Not Available Ozempic 2 mg/dose (8 mg/3 mL) subcutaneou s pen injector INJECT 2MG SUBCUTANE OUSLY ONCE WEEKLY active Not Available Not Available No t Available FreeStyle Theo 3 Sensor device REPLACE EVERY 14 DAYS active Not Available Not Available No t Available Vitals Date Recorded Body mass index (BMI) Body height Oxygen saturation Oxygen saturation in Arterial blood by Pulse oximetry Heart rate Body temperature Body weight Systolic blood pressure Diastolic blood pressure Provider Name and Address Organization Details Last Updated DateTime 3 33.5 kg/m2 161.29 cm 97 % 97 % 105 /min 97.1 [degF] 83008.7 4 g 144 mm[Hg] 80 mm[Hg] Not Available [facility] 3 08:48:12 Date Recorded Body height Body mass index (BMI) Body weight Body temperature Heart rate Oxygen saturation Oxygen saturation in Arterial blood by Pulse oximetry Systolic blood pressure Diastolic blood pressure Provider Name and Address Organization Details Last Updated DateTime 3 161.29 cm 34 kg/m2 33957.5 1 g 97.3 [degF] 117 /min 98 % 98 % 150 mm[Hg] 80 mm[Hg] Faiza Tong [employer] 3 11:51:02 Date Recorded Body height Body mass index (BMI) Body weight Body temperature Heart rate Oxygen saturation Oxygen saturation in Arterial blood by Pulse oximetry Systolic blood pressure Diastolic blood pressure Provider Name and Address Organization Details Last Updated DateTime 3 161.29 cm 33 kg/m2 60082.9 6 g 97.2 [degF] 126 /min 98 % 98 % 144 mm[Hg] 76 mm[Hg] Faiza Tong [facility] [employer] 3 09:51:20 Date Recorded Body height Body mass index (BMI) Body weight Body temperature Heart rate Oxygen saturation Oxygen saturation in Arterial blood by Pulse oximetry Systolic blood pressure Diastolic blood pressure Provider Name and Address Organization Details Last Updated DateTime 3 161.29 cm 32.8 kg/m2 17028.3 7 g 98.1 [degF] 122 /min 98 % 98 % 128 mm[Hg] 72 mm[Hg] Shruti schultz [employer] 3 11:35:06 Date Recorded Body height Body mass index (BMI) Body weight Body temperature Heart rate Oxygen saturation Oxygen saturation in Arterial blood by Pulse oximetry Systolic blood pressure Diastolic blood pressure Provider Name and Address Organization Details Last Updated DateTime 3 161.29 cm 33.7 kg/m2 84522.3 3 g 97.3 [degF] 86 /min 98 % 98 % 128 mm[Hg] 66 mm[Hg] Shruti schultz [employer] [facility] 09:38:07 Social History Question Answer Notes LastModified by Organizat ion Details LastModified Time Tobacco Smoking Status Never Smoker Not Available [facility] 10/24/2022 08:45:16 What Is Your Level Of Alcohol Consumption? None [id number] Information not available 10/24/2022 In The 14 Days Before Symptom Onset, Have You Had Close Contact With A Laboratory-confirm ed COVID-19 While That Case Was Ill? No [id number] 026 Information not available 10/24/2022 In The 14 Days Before Symptom Onset, Have You Had Close Contact With A Person Who Is Under Investigation For COVID-19 While That Person Was Ill? No [id number] 026 Information not available 10/24/2022 Sex: Unknown Functional Status None recorded. Mental Status None recorded. Family History Relationship Description Onset Age of this Age Resolved Age Notes LastModified by Organization Details LastModified Time Mother Diabetes mellitus [id number] [id number] Not available 10/24/2022 08:45:39 Mother Hypertensive disorder [id number] [id number] Not available 10/24/2022 08:45:39 Mother Congestive heart failure [id number] [id number] Not available 10/24/2022 08:45:39 Mother Kidney disease [id number] [id number] Not available 10/24/2022 08:45:39 Father Congestive heart failure [id number].380 [id number] Not available 10/24/2022 08:45:39 Medical History No medical history recorded. Gynecological HistoryNo gynecological history recorded. Obstetrics History GPAL:G 0 P 0 0 0 0 Past Encounters Encounter ID Performer Location Encounter Start Date Encounter Closed Date Diagnosis/Indication Diagnosis SNOMED-CT Code Diagnosis ICD10 Code Diagnosis Note [id number] [facility] [address] [place] [address] 01/10/2021 00:00:00 01/11/2021 06:12:58 [id number] [facility] [address] [place] [address] 03/02/2021 00:00:00 03/02/2021 15:04:11 [id number] [facility] [address] [place] [address] 10/04/2021 00:00:00 10/04/2021 19:08:15 [id number] Palma Gilbert MD [facility] [address] [place] [address] [place] [address] 01/02/2023 11:42:42 01/02/2023 12:21:33 Adult health examination 166670327 Z00.00 Type 2 brendan betes mellitus without complication 612997757 E11.9 A1C is 8.9% Will increase lantus to 30 units dailyF/u in 3 months Gastroesop hageal reflux disease 437813304 K21.9 Hyperlipid emia screening 851795981 Z13.220 Loss of hair 819132838 L 65.9 Pain of left breast 1010 485668 N64.4 F/u with US in 06/17. Heat and NSAIDs and no under wire. avoid caffeine. [id number] Palma Gilbert MD [facility] [address] [place] [address] [place] [address] 02/14/2023 09:44:35 02/14/2023 10:13:18 Essential hypertension 66622320 I10 Will start lisinopril /hct 20/12.5 mg and increase the metoprolol to 50 mg BID [id number] Palma Gilbert MD [facility] [address] [place] [address] [place] [address] 04/30/2023 11:25:47 04/30/2023 11:58:31 Hyperthyroidism 89621421 E05.90 If has sxs that get worse go to the ED [id number] Palma Gilbert MD [facility] [place] [address] 05/24/2023 09:32:46 05/24/2023 09:55:28 Graves' disease 388551361 E05.00 Continue meds Health Concerns Section Related Observation LastModified by Organization Detai ls LastModified Time None Recorded Concern Status LastModified by Organization Details LastModified Time None Recorded Advance Directives Directive None Recorded Payers Encounter Date Sequence Insurance Name Policy Number Policy Jose Covered Member ID Jose Member ID Guarantor Name 01/02/2023 1 R [id number] Tete Jeff McMath [id number] Tete Kincaid 02/14/2023 1 UMR [id number] Tete Jeff Codi [id number] Tete Santanaath 04/30/2023 1 UMR [id number] Tete Jeff Codi [id number] Tete Santanaath 05/24/2023 1 UMR [id number] Tete Jeff Codi [id number] Tete Kincaid Notes Date Note Type Note Provider Name and Address Organization Details Recorded Time 01/02/2023 text/html Here today for a nnual wellness visit.Needs A1C. Is having breast pain too. Still having trouble with hair loss. Having refluxing. Taking omeprazole otc. It does help. Left breast is tender to the touch. No masses palpated. Got mammogram of 12/20/22 Needs US in 06/17 Has a lot of soreness. It has gotten worse. Palma Gilbert MD [address] [employer], [place], [address], [employer] 01/02/2023 21:55:03 02/14/2023 text/html Here today was i n ER on 01/25/23 was having headaches and palpitations and pain down left arm. Her BP was 220/112 and HR was 140s. Work up was ok. Was given IVF and was put on metoprolol. HR is still elevated. Nothing was taken away. BP at 170/80s. Has had headaches but mostly when wakes up. Highest BP 189/90s No cp or sob or headaches or dizziness today. Palma Gilbert MD [address], [place], [address], [employer] 02/14/2023 19:25:15 04/30/2023 text/html Here today for f /u of hospitalization. Was experiencing elevated HR 140s and elevated BP. Feeling weak and sob and chest pains. Had an echo cardiogram. The thyroid was off. Hyperthyroidism. Was going to transfer her but no beds available. Go to [facility] ER if needed. Still has rapid HR. Has been running in the 120s. Metoprolol was increased to 75 mg BID. BP has been running well. Palma Gilbert MD [address], [place], [address], [employer] [facility] [employer] 05/01/2023 08:30:22 05/24/2023 text/html Here today for f /u of hospitalization. Has Graves disease and put on methimazole and propranolol by online advertising manager She is feeling much better. Was also put on januvia and sliding scale of insulin up to 6 units per meal. Was increased to 30 units of lantus. Seeing Dr. Bey online advertising manager. Heart rate is down BP is good. Has very little sob No cp. SOB has decreased. Palma Gilbert MD [address], [place], [address], [employer] 05/24/2023 18:32:37 OBGyn Episode No OBEpisode recorded.
--- OUTSIDE RECORDS SUMMARY | 2024-10-05 11:43 | XMS_ITS | Encounter Summary ---
Author Organization [employer] Address 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
--- OUTSIDE RECORDS SUMMARY | 2024-10-05 11:43 | XMS_ITS | Clinical Summary ---
Author Organization [facility] Address [address] [place] [address] Phone Care Team Providers Care Part Time Flexible Clerk Name Role Phone Palma Gilbert MD Primary Care Provider [phone] Allergies Active Allergy Reactions Criticality Noted Date Comments Morphine Hallucinations 02/12/2019 Medications metFORMIN (GLUCOPHAGE) 500 MG Tablet Take 500 mg by mouth 2 times daily (with meals). Active lisinopril (PRINIVIL, ZESTRIL) 10 MG Tablet Take 10 mg by mouth daily. Active Immunizations Immunization Administration Dates Next Due Influenza Vaccine, Quadrivalent, PF 05/09/2020,1 Social History Tobacco Use Types Packs/Day Years Used Date Smoking Tobacco: Never Smokeless Tobacco: Never Alcohol Use Standard Drinks/Week Comments Never 0 (1 standard drink = 0.6 oz pur e alcohol) AUDIT-C Answer Date Recorded Frequency of Alcohol Consumption Never 02/12/2019 Average Number of Drinks Not on file 019 Frequency of Binge Drinking Not on file 01/25 Comments No Sex and Gender Information Value Date Recorded Sex Assigned at Not on file Legal Sex Female 10:41 PM CDT Gender Identity Not on file Sexual Orientation Not on file Last Filed Vital Signs Vital Sign Reading Time Taken Comments Blood Pressure 167/87 08/22/2019 7:15 AM CANVAS MARKER Pulse 105 08/22/2019 7:15 AM CANVAS MARKER Temperature 36.4 C (97.5 F) 08/22/2019 7:15 AM CANVAS MARKER Respiratory Rate 16 08/22/2019 7:15 AM CANVAS MARKER Oxygen Saturation 99% 08/22/2019 7:15 AM CANVAS MARKER Inhaled Oxygen Concentration - - Weight 81.6 kg (180 lb) 08/22/2019 7:15 AM CANVAS MARKER Height 160 cm (5' 3 ) 08/22/2019 7:15 AM CANVAS MARKER Body Mass Index 31.89 08/22/2019 7:15 AM CANVAS MARKER Plan of Treatment Health Maintenance Due Date Last Done Comments Hepatitis C Virus (HCV) Screening 1965 TdaP Immunization 1965 Colonoscopy 01/26/2008 Colorectal Cancer Screening 01/26/2008 Cologuard 2013 Immunochemical Fecal Occult Blood 2013 Pneumococcal Immunization (5 0+ years) (1 of 1 - PCV) 2013 Zoster Immunization (1 of 2) 2013 Mammogram 04/17/2021 04/17/2019, 09/23/2015 Influenza Immunization (#1) 04/26/202404/26, 05/28/2019 SARS-COV-2 Immunization ( season) 2024 08/16/2021, 10/25/2020, 09/20/2020 Respiratory Syncytial Virus (RSV) Immunization (Adult) (1 - 1-dose 75+ series) 2038 Hepatitis B Immunization Aged Out No longer eligible based on patient's age to complete this topic Meningococcal Immunization (ACWY) Aged Out No longer eligible b ased on patient's age to complete this topic Pneumococcal Immunization Combined Aged Out No longer eligible b ased on patient's age to complete this topic Rotavirus Immunization Aged Out No lo nger eligible based on patient's age to complete this topic Procedures Procedure Name Priority Date/Time Associated Diagnosis Comments JAMILAH DIAG BILATERAL DIGITAL W CAD W ROBEL Routine 04/17/2019 9:26 AM CDT Breast pain, right from Last 3 Months or Most Recently Relevant to Health Maintenance Results * JAMILAH DIAG BILATERAL DIGITAL W CAD W ROBEL (04/17/2019 9:26 AM CDT) Anatomical Region Laterality Modality breast Bilateral Mammography 04/17/2019 8:28 AM CDT Narrative 04/17/2019 9:46 AM CDT - JAMILAH DIAG BILATERAL DIGITAL W CAD W ROBEL - JAMILAH US BREAST LIMITED RT BILATERAL DIGITAL DIAGNOSTIC MAMMOGRAM 3D/2D WITH CAD AND TARGETED RIGHT ULTRASOUND WITH MEDIOLATERAL OBLIQUE CRANIOCAUDAL: 04/17/2019 The study was acquired using digital technology and interpreted from soft copy. Current study was also evaluated with ICAD version 7.2. CLINICAL: Diagnostic study. Patient reports right breast pain and tenderness in the superior portion of her breast with an itching sensation for approximately 4 months. Patient has noticed that the pain radiates to her shoulder and has limited range of motion. No problems to report with the left breast. Previous excisional biopsy of the left breast. No personal history of cancer. No family history of breast cancer. COMPARISONS: Comparison is made to exams dated: 09/23/2015, 09/23/2015 [facility], 04/08/2014, 02/12/2011, and 02/12/2011 [facility]. BREAST TISSUE:The tissue of both breasts is heterogeneously dense. This may lower the sensitivity of mammography. FINDINGS: No significant masses, calcifications, or other findings are seen in either breast on the mammogram or right targeted ultrasound. no lesion is seen underlying the area of pain at the superior aspect of the right breast. There has been no significant interval change. IMPRESSION: OVERALL STUDY BIRADS: 1 NEGATIVE There is no mammographic or targeted sonographic evidence of malignancy. A 1 year screening mammogram is recommended. The patient has been or will be contacted. Electronically signed by: Jade Lozano M.D. ll/:04/17/2019 09:41:35 Vibration Engineer: Roya Sexton (R), [facility] letter sent: Normal Exam Reading location: [facility] OVERALL STUDY BIRADS: 1 Negative Procedure Note Jade Lozano MD - 04/17/2019 - JAMILAH DIAG BILATERAL DIGITAL W CAD W ROBEL - JAMILAH US BREAST LIMITED RT BILATERAL DIGITAL DIAGNOSTIC MAMMOGRAM 3D/2D WITH CAD AND TARGETED RIGHT ULTRASOUND WITH MEDIOLATERAL OBLIQUE CRANIOCAUDAL: 04/17/2019 The study was acquired using digital technology and interpreted from soft copy. Current study was also evaluated with ICAD version 7.2. CLINICAL: Diagnostic study. Patient reports right breast pain and tenderness in the superior portion of her breast with an itching sensation for approximately 4 months. Patient has noticed that the pain radiates to her shoulder and has limited range of motion. No problems to report with the left breast. Previous excisional biopsy of the left breast. No personal history of cancer. No family history of breast cancer. COMPARISONS: Comparison is made to exams dated: 09/23/2015, 09/23/2015 [facility], 04/08/2014, 02/12/2011, and 02/12/2011 [facility]. BREAST TISSUE:The tissue of both breasts is heterogeneously dense. This may lower the sensitivity of mammography. FINDINGS: No significant masses, calcifications, or other findings are seen in either breast on the mammogram or right targeted ultrasound. no lesion is seen underlying the area of pain at the superior aspect of the right breast. There has been no significant interval change. IMPRESSION: OVERALL STUDY BIRADS: 1 NEGATIVE There is no mammographic or targeted sonographic evidence of malignancy. A 1 year screening mammogram is recommended. The patient has been or will be contacted. Electronically signed by: Jade Lozano M.D. ll/:04/17/2019 09:41:35 Vibration Engineer: Roya Sexton (R), [facility] letter sent: Normal Exam Reading location: [facility] OVERALL STUDY BIRADS: 1 Negative Vadim Rivers [facility] [place]ABLES Final Resul t from Last 3 Months or Most Recently Relevant to Health Maintenance Insurance [facility] Care Teams Part Time Flexible Clerk Relationship Specialty Start Date End Date Palma Gilbert MD [address] [place] [address] [place] [address] PCP - General Poultry Inspector 09/23/15
--- OUTSIDE RECORDS SUMMARY | 2024-10-05 11:43 | XMS_ITS | Clinical Summary ---
Author Organization [facility] Address [address] [place] [address] Care Team Providers Care Stone Setter Apprentice Name Role Phone Vadim Rivers MD Unavailable [phone] Palma Gilbert MD Primary Care Provider [phone] Source Comments [facility],non-owned Affiliates and Associated Physician Practices is amultiple site organization consisting of ambulatory clinics and hospital sitesin [place], [place], [place] and [place]. This disclosure is being madepursuant to the Care Everywhere program and may not contain all information available regarding this patient. Last updated 18.[facility] Allergies Active Allergy Reactions Criticality Noted Date Comments Propoxyphene N-Apap 09/06/2009 STOMACH PROBLEMS Medications * Be aware that medications may not be up to date on this document. Alwaysverify current medications with the patient. Medication Sig Dispensed Refills Start Date End Date Status metformin (GLUCOPHAGE) 500 MG tablet Take 500 mg by mouth 2 times daily with breakfast and dinner. Active simvastatin (ZOCOR) 20 MG tablet Take 20 mg by mouth at bedtime. Active Multiple Vitamin (MULTI-VITAMIN PO) Take by mouth. Ac tive empagliflozin (JARDIANCE) 10 MG tablet Take 10 mg by mouth once daily Active HYDROcodone-acetamin ophen (NORCO) 5-325 MG tablet Take 1 tablet by mouth every 4 hours as needed for Pain 20 tablet 11/29/2017 Active lisinopril (PRINIVIL; ZESTRIL) 20 MG tablet Take 1 tablet by mouth once daily 30 tablet 11/30/2017 Active dicyclomine (Bentyl) 20 MG tablet Take 1 (one) tablet by mouth 4 times daily 30 tablet 03/27/2024 Active ondansetron, disintegrating, (Zofran ODT) 4 MG tablet Take 1 (one) tablet by mouth every 6 hours as needed for Nausea/Vomiting Allow tablet to dissolve on the tongue 30 tablet 03/27/2024 Active Active Problems Problem Noted Date Diagnosed Date Abdominal pain, left lower quadrant 11/26/2017 Left flank pain 11/26/2017 Elevated lipase 11/26/2017 Colon polyp 05/23/2011 Diverticulosis of colon 05/23/2011 Scanty or infrequent menstruation 09/08/2009 Family History Medical History Relation Name Comments CAD (Coronary Artery Disease) Father Diabetes Mother Relation Name Status Comments Father Mother Social History Tobacco Use Types Packs/Day Years Used Date Smoking Tobacco: Never Smokeless Tobacco: Never Alcohol Use Standard Drinks/Week Comments No 0 (1 standard drink = 0.6 oz pur e alcohol) Sex and Gender Information Value Date Recorded Sex Assigned at Not on file Gender Identity Not on file Sexual Orientation Not on file Last Filed Vital Signs Vital Sign Reading Time Taken Comments Blood Pressure 133/73 03/27/2024 4:30 PM CDT Pulse 83 03/27/2024 4:30 PM CDT Temperature 36.6 C (97.9 F) 03/27/2024 2:00 PM CDT Respiratory Rate 15 03/27/2024 4:30 PM CDT Oxygen Saturation 98% 03/27/2024 4:3 0 PM CDT Inhaled Oxygen Concentration 100% 05/18/2011 7:47 AM CDT continue 100% for procedure Weight 85.8 kg (189 lb 1.6 oz) 11/26/2017 7:48 PM CDT Height 158.8 cm (5' 2.5 ) 11/26/2017 7: 48 PM CDT Body Mass Index 34.04 11/26/2017 7:48 PM CDT Plan of Treatment Health Maintenance Due Date Last Done Comments COLOGUARD (AGES 45-75) - COLON CA SCREENING 1965 CT COLONOGRAPHY - COLON CA SCREENING 1965 FIT - COLON CA SCREENING 1965 FLEX SIG - COLON CA SCREENING 1963 PAP SMEAR 1963 HIV SCREENING 1978 HEPATITIS C SCREENING 01/20/1981 DTAP/TDAP/TD VACCINES (1 - Tdap) 1982 PNEUMOCOCCAL VACCINE 50+ (1 of 1 - PCV) 2013 ZOSTER VACCINE (1 of 2) 2013 COLON MONITORING 05/18/2014 05/18/2011 Colorectal Cancer Screening 05/18/2014 MAMMOGRAM 04/17/2021 04/17/2019, 03/27, 09/23/2015, Additional history exists COLONOSCOPY - COLON CA SCREENING 05/18/2021 05/18/2011 Respiratory Syncytial Virus (RSV) Vaccine Pt: or over 60 yrs (1 - Risk 60-74 years 1-dose series) 2023 COVID-19 VACCINE (4 - season) 2024 08/16/2021, 10/25/2020, 09/20/2020 INFLUENZA VACCINE (#1) 2024 2, 05/26/2021, 05/09/2020, Additional history exists DEPRESSION SCREENING 08/26/2024 HEPATITIS B VACCINE Aged Out No longe r eligible based on patient's age to complete this topic HIB VACCINE Aged Out No longer eligi ble based on patient's age to complete this topic HPV VACCINE Aged Out No longer eligi ble based on patient's age to complete this topic MENINGOCOCCAL (Group B) VACCINE Aged Out No longer eligible based on patient's age to complete this topic MENINGOCOCCAL VACCINE Aged Out No lucita fiona eligible based on patient's age to complete this topic PNEUMOCOCCAL VACCINE Aged Out No long er eligible based on patient's age to complete this topic Procedures Procedure Name Priority Date/Time Associated Diagnosis Comments MAMMO BILAT SCREENING Routine 04/08/2014 2:20 PM CDT Other screening mammogram ENDOSCOPY, COLON, SCREENING Routine 05/18/2011 from Last 3 Months or Most Recently Relevant to Health Maintenance Results * JAMILAH SCREENING DIGITAL IMAGE BILATERAL [id number] (04/08/2014 2:20 PM CDT) Anatomical Region Laterality Modality Breast Bilateral Mammography 04/09/2014 8:24 AM CDT Narrative 04/09/2014 8:24 AM CDT EXAMINATION: Digital screening mammogram on 04/08/14. PRIOR: 2009 FINDINGS: Computer assisted detection was utilized. Tissues heterogeneously dense. Smoothly marginated nodules in the left breast are stable. There is no significant change since the prior mammogram. ASSESSMENT: BIRADS Category 2: BENIGN FINDINGS. RECOMMENDATION: Screening mammogram in one year. Thank you for allowing us to participate in the care of your patient. [facility] utilizes [employer] as a reminder system to notify patients of their next recommended mammogram. Vadim Rivers MD MAMMO ORDERABLES * ENDOSCOPY, COLON, SCREENING (05/18/2011) Brown Acosta MD GI PROCEDURE ORDERAB LES from Last 3 Months or Most Recently Relevant to Health Maintenance Advance Directives Documents on File Type Date Recorded Patient Process Control Supervisor Expl anation Adv Directive/Living Will/POA 09/16/2009 9:13 AM * Full Code (Latest Code Status on File) Date Activated Date Inactivated Comments 11/26/2017 7:47 PM 11/29/2017 4:03 PM * Full Code Date Activated Date Inactivated Comments 09/12/2009 11:03 AM 09/15/2009 12:23 AM Care Teams Stone Setter Apprentice Relationship Specialty Start Date End Date Vadim Rivers MD PCP - OBGYN Obstetrics 04/08/14 Palma Gilbert MD [facility] [place] [address] PCP - General 12/05/17
--- OUTSIDE RECORDS SUMMARY | 2024-10-05 11:43 | XMS_ITS | Clinical Summary ---
Author Organization [employer] [facility] Address [address] 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
--- OUTSIDE RECORDS SUMMARY | 2024-10-05 11:43 | XMS_ITS | Patient Health Summary ---
Author Organization [facility] Address [address] [place] [address] Care Team Providers Care Quality Consultant Name Role Phone Vadim iRvers MD Unavailable [phone] Palma Gilbert MD Primary Care Provider [phone] Note from [facility],non-owned Affiliates and Associated Physician Practices is amultiple site organization consisting of ambulatory clinics and hospital sitesin [place], [place], [place] and [place]. This disclosure is being madepursuant to the Care Everywhere program and may not contain all information available regarding this patient. Last updated 18.[facility] Allergies * Propoxyphene N-Apap(STOMACH PROBLEMS) Medications * Be aware that medications may not be up to date on this document. Alwaysverify current medications with the patient. * metformin (GLUCOPHAGE) 500 MG tablet Take 500 mg by mouth 2 times daily with breakfast and dinner. * simvastatin (ZOCOR) 20 MG tablet Take 20 mg by mouth at bedtime. * Multiple Vitamin (MULTI-VITAMIN PO) Take by mouth. * empagliflozin (JARDIANCE) 10 MG tablet Take 10 mg by mouth once daily * HYDROcodone-acetaminophen (NORCO) 5-325 MG tablet(Started 11/29/2017) Take 1 tablet by mouth every 4 hours as needed for Pain * lisinopril (PRINIVIL; ZESTRIL) 20 MG tablet(Started 11/30/2017) Take 1 tablet by mouth once daily * dicyclomine (Bentyl) 20 MG tablet(Started 03/27/2024) Take 1 (one) tablet by mouth 4 times daily * ondansetron, disintegrating, (Zofran ODT) 4 MG tablet(Started 03/27/2024) Take 1 (one) tablet by mouth every 6 hours as needed for Nausea/Vomiting Allow tablet to dissolve on the tongue Active Problems Problem Noted Date Diagnosed Date Abdominal pain, left lower quadrant 11/26/2017 Left flank pain 11/26/2017 Elevated lipase 11/26/2017 Colon polyp 05/23/2011 Diverticulosis of colon 05/23/2011 Scanty or infrequent menstruation 09/08/2009 Social History Tobacco Use Types Packs/Day Years [...] Mass Index 34.04 11/26/2017 7:48 PM CDT Procedures * CARDIAC EKG ORDER(Performed 03/30/2024) * TROPONIN-I HIGH SENSITIVE REFLEX 1HOUR(Performed 03/27/2024) * TROPONIN-I HIGH SENSITIVE BASELINE + 1HR(Performed 03/27/2024) * EKG 12-LEAD(Performed 03/27/2024) Performed for Left flank pain * CT ABDOMEN PELVIS W CONTRAST(Performed 03/27/2024) Performed for Abdominal pain, generalized * URINE MICROSCOPIC ONLY REFLEX TO CULTURE(Performed 03/27/2024) * URINALYSIS REFLEX MICROSCOPIC REFLEX CULTURE(Performed 03/27/2024) * LIPASE BLOOD(Performed 03/27/2024) * COMPREHENSIVE METABOLIC PANEL(Performed 03/27/2024) * CBC W AUTO DIFFERENTIAL(Performed 03/27/2024) * GLUCOSE - POINT OF CARE(Performed 11/29/2017) * GLUCOSE - POINT OF CARE(Performed 11/29/2017) * LIPASE BLOOD(Performed 11/29/2017) * BASIC METABOLIC PANEL (CALCIUM TOTAL)(Performed 11/29/2017) * CBC W AUTO DIFFERENTIAL(Performed 11/29/2017) * GLUCOSE - POINT OF CARE(Performed 11/28/2017) * US ABDOMEN LIMITED(Performed 11/28/2017) Performed for Abdominal pain, left lower quadrant, Diverticulosis of colon * GLUCOSE - POINT OF CARE(Performed 11/28/2017) * GLUCOSE - POINT OF CARE(Performed 11/28/2017) * LIPASE BLOOD(Performed 11/28/2017) * BASIC METABOLIC PANEL (CALCIUM TOTAL)(Performed 11/28/2017) * CBC W AUTO DIFFERENTIAL(Performed 11/28/2017) * GLUCOSE - POINT OF CARE(Performed 11/27/2017) * GLUCOSE - POINT OF CARE(Performed 11/27/2017) * GLUCOSE - POINT OF CARE(Performed 11/27/2017) * GLUCOSE - POINT OF CARE(Performed 11/27/2017) * GLUCOSE - POINT OF CARE(Performed 11/27/2017) * HEMOGLOBIN A1C(Performed 11/27/2017) * GLUCOSE - POINT OF CARE(Performed 11/26/2017) * CT ABDOMEN PELVIS W CONTRAST(Performed 11/26/2017) Performed for Abdominal pain, left lower quadrant, Left flank pain * URINALYSIS REFLEX MICROSCOPIC REFLEX CULTURE(Performed 11/26/2017) * AMYLASE BLOOD(Performed 11/26/2017) * LIPASE BLOOD(Performed 11/26/2017) * COMPREHENSIVE METABOLIC PANEL(Performed 11/26/2017) * CBC W AUTO DIFFERENTIAL(Performed 11/26/2017) * MAMMO BILAT SCREENING(Performed 04/08/2014) Performed for Other screening mammogram * GROSS + MICRO EXAM(Performed 05/18/2011) * GROSS + MICRO EXAM(Performed 05/18/2011) * GLUCOSE - POINT OF CARE(Performed 05/18/2011) * ENDOSCOPY, COLON, SCREENING(Performed 05/18/2011) * XR FOOT RIGHT 3VW OR MORE(Performed 05/01/2011) Performed for Pain in soft tissues of limb * US BREAST LEFT COMPLETE(Performed 02/12/2011) Performed for Abnormal mammogram, unspecified * MAMMO LEFT DIAGNOSTIC(Performed 02/12/2011) Performed for Abnormal mammogram, unspecified * US BREAST BILATERAL COMPLETE(Performed 08/14/2010) Performed for Abnormal mammogram, unspecified * MAMMO BILAT DIAGNOSTIC(Performed 08/14/2010) Performed for Abnormal mammogram, unspecified * MAMMO BILAT SCREENING(Performed 07/01/2010) Performed for Other screening mammogram * CARDIAC RHYTHM STRIP ORDER(Performed 09/16/2009) * GLUCOSE - POINT OF CARE(Performed 09/14/2009) Performed for Unspecified Symptom Associated With Female Genital Organs * CBC W AUTO DIFFERENTIAL(Performed 09/13/2009) Performed for Unspecified Symptom Associated With Female Genital Organs * GLUCOSE - POINT OF CARE(Performed 09/13/2009) Performed for Unspecified Symptom Associated With Female Genital Organs * GLUCOSE - POINT OF CARE(Performed 09/13/2009) Performed for Unspecified Symptom Associated With Female Genital Organs * GLUCOSE - POINT OF CARE(Performed 09/13/2009) Performed for Unspecified Symptom Associated With Female Genital Organs * GLUCOSE - POINT OF CARE(Performed 09/13/2009) Performed for Unspecified Symptom Associated With Female Genital Organs * GLUCOSE - POINT OF CARE(Performed 09/12/2009) Performed for Unspecified Symptom Associated With Female Genital Organs * GLUCOSE - POINT OF CARE(Performed 09/12/2009) Performed for Unspecified Symptom Associated With Female Genital Organs * GLUCOSE - POINT OF CARE(Performed 09/12/2009) Performed for Unspecified Symptom Associated With Female Genital Organs * GROSS + MICRO EXAM(Performed 09/12/2009) * GROSS + MICRO EXAM(Performed 09/12/2009) Performed for Scanty Menstruation * GLUCOSE - POINT OF CARE(Performed 09/12/2009) Performed for Unspecified Symptom Associated With Female Genital Organs * HCG URINE QUALITATIVE(Performed 09/12/2009) Performed for Unspecified Symptom Associated With Female Genital Organs * GLUCOSE - POINT OF CARE(Performed 09/12/2009) Performed for Unspecified Symptom Associated With Female Genital Organs * TYPE + SCREEN PANEL(Performed 09/08/2009) Performed for Scanty Menstruation * HCG URINE QUALITATIVE(Performed 09/08/2009) Performed for Scanty Menstruation * CBC W AUTO DIFFERENTIAL(Performed 09/08/2009) Performed for Scanty Menstruation * BASIC METABOLIC PANEL (CALCIUM TOTAL)(Performed 09/08/2009) Performed for Scanty Menstruation * EKG 12-LEAD(Performed 09/08/2009) Performed for Scanty or Infrequent Menstruation * GROSS + MICRO EXAM(Performed 07/13/1998) Results * CARDIAC EKG ORDER (03/30/2024 4:36 PM CDT) Narrative 03/30/2024 4:36 PM CDT Ordered by an unspecified provider. Scanned Document CARDIAC SERVICES ORD ERABLES * TROPONIN-I HIGH SENSITIVE REFLEX 1HOUR (03/27/2024 4:29 PM CDT) Pathologist [facility] Troponin I High Sensitive <3 <=14 ng/L 03/27/2024 4:52 PM CDT [facility] Delta Troponin I HS 03/27/2024 4:52 PM CDT [facility] Comment:Result exceeds linea rity range. A delta value is unable to be calculated. Blood BLOOD SPECIMEN / Unknown Venipuncture / Unknown 03/27/2024 4:29 PM CDT 03/27/2024 4:29 PM CDT Vincenzo Langston MD LAB - CHEMISTR Y ORDERABLES [facility] [address] [place], [place] [id number] * TROPONIN-I HIGH SENSITIVE BASELINE + 1HR (03/27/2024 3:15 PM CDT) Pathologist [facility] Troponin I High Sensitive <3 <=14 ng/L 03/27/2024 3:36 PM CDT [facility] Blood BLOOD SPECIMEN / Unknown Venipuncture / Unknown 03/27/2024 3:15 PM CDT 03/27/2024 3:15 PM CDT Vincenzo Langston MD LAB - CHEMISTR Y ORDERABLES [facility] [address] [place] [phone] * EKG 12-LEAD (03/27/2024 3:05 PM CDT) Only the most recent of2 resultswithin the time period is included. Ventricular Rate 85 BPM [facility] Atrial Rate 85 BPM [facility] P-R Interval 138 ms [facility] QRS Duration ms 80 ms [facility] Q-T Interval ms 406 ms [facility] QTC Calculation (Bezet) 483 ms [facility] Calculated P [place] 60 degrees [facility] Calculated R [place] 5 degrees [facility] Calculated T [place] 7 degrees [facility] Interpretation EKG NORMAL SINUS RHYTHM NONSPECIFIC T WAVE ABNORMALITY ABNORMAL ECG WHEN COMPARED WITH ECG OF 08-SEP-2009 17:14, NONSPECIFIC T WAVE ABNORMALITY NOW EVIDENT IN ANTERIOR LEADS Confirmed by DO SINGH STEPHANIE ([id number]) on 03/28/2024 4:07:53 PM [facility] 03/27/2024 3:05 PM CDT 03/28/2024 4:07 PM CDT Vincenzo Langston MD ECG ORDERABLES [facility] * CT ABDOMEN PELVIS W CONTRAST (03/27/2024 1:52 PM CDT) Only the most recent of2 resultswithin the time period is included. Anatomical Region Laterality Modality Abdomen, Pelvis Computed Tomogra phy 03/27/2024 2:24 PM CDT Impressions 03/27/2024 2:29 PM CDT IMPRESSION: 1. No evidence of acute process. 2. Nonobstructive right nephrolith. 3. Incidental intermediate attenuating bilateral renal lesions which are incompletely characterized but could be further evaluated initially by ultrasound nonurgently. > Interpreting Provider: Jason De La Rosa MD on 03/27/2024 2:29 PM Narrative 03/27/2024 2:29 PM CDT PROCEDURE: CT ABDOMEN PELVIS W CONTRAST DATE/TIME OF EXAM: 03/27/2024 1:53 PM CLINICAL INFORMATION: None relevant/not provided if blank. Indication: R10.84: Generalized abdominal pain Additional History: COMPARISON: 11/26/2017 TECHNIQUE: CT of the abdomen and pelvis was performed following intravenous contrast utilizing standard protocol. CT dose reduction technique was used, including Automated Exposure Control. CONTRAST: IOPAMIDOL 76 % IV SOLN:100 mL FINDINGS: LUNG BASES: Within normal limits LIVER: Within normal limits. BILE DUCTS: Nondilated. GALLBLADDER: Surgically absent. SPLEEN: Within normal limits. PANCREAS: Within normal limits. ADRENALS: Within normal limits. KIDNEYS/URETERS: Punctate right upper nonobstructive nephroliths. Apparent intermediate attenuation within a 8 mm right upper pole lesion posteriorly and a 2.3 cm lesion in the left interpolar kidney may be artifactual. BOWEL: Normal in caliber. Scattered colonic diverticulosis. PERITONEUM/RETROPERITONEUM: No ascites, free air or enlarged mesenteric/retroperitoneal lymph nodes. PELVIC ORGANS: Uterus is absent. VESSELS: Abdominal aorta is mildly atherosclerotic but normal in caliber. ABDOMINAL WALL: Within normal limits. BONES: No suspicious lytic or blastic lesions. Procedure Note Jason De La Rosa MD - 03/27/2024 PROCEDURE: CT ABDOMEN PELVIS W CONTRAST DATE/TIME OF EXAM: 03/27/2024 1:53 PM CLINICAL INFORMATION: None relevant/not provided if blank. Indication: R10.84: Generalized abdominal pain Additional History: COMPARISON: 11/26/2017 TECHNIQUE: CT of the abdomen and pelvis was performed following intravenouscontrast utilizing standard protocol. CT dose reduction technique was used, including Automated ExposureControl. CONTRAST: IOPAMIDOL 76 % IV SOLN:100 mL FINDINGS: LUNG BASES: Within normal limits LIVER: Within normal limits. BILE DUCTS: Nondilated. GALLBLADDER: Surgically absent. SPLEEN: Within normal limits. PANCREAS: Within normal limits. ADRENALS: Within normal limits. KIDNEYS/URETERS: Punctate right upper nonobstructive nephroliths.Apparent intermediate attenuation within a 8 mm right upper pole lesionposteriorly and a 2.3 cm lesion in the left interpolar kidney may be artifactual. BOWEL: Normal in caliber. Scattered colonic diverticulosis. PERITONEUM/RETROPERITONEUM: No ascites, free air or enlarged mesenteric/retroperitoneal lymph nodes. PELVIC ORGANS: Uterus is absent. VESSELS: Abdominal aorta is mildly atherosclerotic but normal incaliber. ABDOMINAL WALL: Within normal limits. BONES: No suspicious lytic or blastic lesions. IMPRESSION: 1. No evidence of acute process. 2. Nonobstructive right nephrolith. 3. Incidental intermediate attenuating bilateral renal lesions which are incompletely characterized but could be further evaluated initially by ultrasound nonurgently. > Interpreting Provider: Jason De La Rosa MD on 03/27/2024 2:29 PM Portia Kraft PA-C CT ORDERABLES * (ABNORMAL) URINE MICROSCOPIC ONLY REFLEX TO CULTURE (03/27/2024 12:28 PM CDT) Reflex Status Culture not indicated 03/27/2024 12:39 PM CDT [facility] RBC UA None Seen 0 - 5 # /hpf 03/27/2024 12:39 PM CDT [facility] WBC UA 0-5 0 - 5 # /hpf 03/27/2024 12:39 PM CDT [facility] Bacteria UA None Seen None Seen 03/27/2024 12:39 PM CDT [facility] Squamous Epithelial Cells 6-10(A) 0 - 5 /hpf 03/27/2024 12:39 PM CDT [facility] Mucus UA 1+ /LPF 03/27/2024 12:39 PM CDT [facility] Hyaline Casts 3-5(A) 0 - 2 /LPF 03/27/2024 12:39 PM CDT [facility] Urine URINE SPECIMEN OBTAINED BY CLEAN CATCH PROCEDURE / Unknown Collection / Unknown 03/27/2024 12:28 PM CDT 03/27/2024 12:31 PM CDT Narrative [facility] - 03/27/2024 12:39 PM CDT Portia Kraft PA-C LAB - URINALY SIS ORDERABLES Performing Organization Address City/State/[facility] Co de Phone Number [facility] [address] [place], [place] [phone] * (ABNORMAL) URINALYSIS REFLEX MICROSCOPIC REFLEX CULTURE (03/27/2024 12:28 PM CDT) Only the most recent of2 resultswithin the time period is included. Color UA Yellow Straw, Yellow 03/27/2024 12:42 PM CDT [facility] Clarity UA Slt Cloudy(A) Clear 03/27/2024 12:42 PM CDT [facility] Glucose UA Negative Negative 03/27/2024 12:42 PM CDT [facility] Bilirubin UA Negative Negative 03/27/2024 12:42 PM CDT [facility] Ketone UA 2+(A) Negative 03/27/2024 12:42 PM CDT [facility] Specific [place] UA 1.020 1.005 - 1.030 03/27/2024 12:42 PM CDT [facility] Blood UA Negative Negative 03/27/2024 12:42 PM CDT [facility] pH UA 5.0 5.0 - 8.0 pH 03/27/2024 12:42 PM CDT [facility] Protein UA 1+(A) Negative 03/27/2024 12:42 PM CDT [facility] Urobilinogen UA Negative Negative mg/dL 03/27/2024 12:42 PM CDT [facility] Nitrite UA Negative Negative 03/27/2024 12:42 PM CDT [facility] Leukocyte UA Negative Negative 03/27/2024 12:42 PM CDT [facility] Urine Microscopy Urine microscopy to follow 03/27/2024 12:42 PM CDT [facility] Reflex Status Culture not indicated 03/27/2024 12:42 PM CDT [facility] Urine URINE SPECIMEN OBTAINED BY CLEAN CATCH PROCEDURE / Unknown Collection / Unknown 03/27/2024 12:28 PM CDT 03/27/2024 12:31 PM CDT [facility] - 03/27/2024 12:42 PM CDT Ascorbic Acid can cause false negative urine strip tests for blood, glucose, nitrite, and bilirubin. Portia Kraft PA-C LAB - URINALY SIS ORDERABLES Performing Organization Address City/State/[facility] Co de Phone Number [facility] [address] [place] [address] * (ABNORMAL) CBC W AUTO DIFFERENTIAL (03/27/2024 12:21 PM CDT) Only the most recent of6 resultswithin the time period is included. WBC 10.1 4.0 - 10.7 x10E9/L 03/27/2024 12:35 PM CDT [facility] RBC Count 4.90 3.90 - 5.20 x10E12/L 03/27/2024 12:35 PM CDT [facility] Hemoglobin 12.8 11.9 - 15.8 g/dL 03/27/2024 12:35 PM CDT [facility] Hematocrit 39.1 34.8 - 46.1 % 03/27/2024 12:35 PM CDT [facility] MCV 79.8(L) 80.0 - 98.0 fL 03/27/2024 12:35 PM CDT [facility] MCH 26.1(L) 26.7 - 33.6 pg 03/27/2024 12:35 PM CDT [facility] MCHC 32.7 31.7 - 36.3 g/dL 03/27/2024 12:35 PM [facility] RDW-CV 14.1 11.3 - 14.8 % 03/27/2024 12:35 PM [facility] Platelet Count 314 150 - 420 x10E9/L 03/27/2024 12:35 PM CDT [facility] MPV 9.7 7.8 - 11.4 fL 03/27/2024 12:35 PM [facility] Neutrophil % 71.5 41.0 - 74.0 % 03/27/2024 12:35 PM CDT [facility] Lymphocyte % 21.0 17.0 - 47.0 % 03/27/2024 12:35 PM CDT [facility] Monocyte % 6.4 3.0 - 11.0 % 03/27/2024 12:35 PM CDT [facility] Eosinophil % 0.4 0.0 - 7.0 % 03/27/2024 12:35 PM CDT [facility] Basophil % 0.4 0.0 - 1.6 % 03/27/2024 12:35 PM CDT [facility] Immature Granulocytes % 0.3 0.0 - 1.0 % 03/27/2024 12:35 PM CDT [facility] Neutrophil Absolute 7.23 1.60 - 7.50 x10E9/L 03/27/2024 12:35 PM CDT [facility] Lymphocyte Absolute 2.13 1.00 - 4.40 x10E9/L 03/27/2024 12:35 PM CDT [facility] Monocyte Absolute 0.65 0.15 - 1.00 x10E9/L 03/27/2024 12:35 PM CDT [facility] Eosinophil Absolute 0.04 0.00 - 0.60 x10E9/L 03/27/2024 12:35 PM CDT [facility] Basophil Absolute 0.04 0.00 - 0.13 x10E9/L 03/27/2024 12:35 PM CDT [facility] Blood BLOOD SPECIMEN / Unknown Venipuncture / Unknown 03/27/2024 12:21 PM CDT 03/27/2024 12:31 PM CDT Portia Kraft PA-C LAB - HEMATOL OGY ORDERABLES [facility] [address] [place] [address] * (ABNORMAL) COMPREHENSIVE METABOLIC PANEL (03/27/2024 12:21 PM CDT) Only the most recent of2 resultswithin the time period is included. Glucose 180(H) 70 - 105 mg/dL 03/27/2024 12:48 PM CDT [facility] Sodium 135(L) 136 - 145 mmol/L 03/27/2024 12:48 PM CDT [facility] Potassium 3.7 3.5 - 5.1 mmol/L 03/27/2024 12:48 PM CDT [facility] Chloride 98 98 - 107 mmol/L 03/27/2024 12:48 PM CDT [facility] CO2 23 22 - 29 mmol/L 03/27/2024 12:48 PM CDT [facility] Calcium 9.8 8.4 - 10.4 mg/dL 03/27/2024 12:48 PM T [facility] Anion Gap 14 6 - 16 mmol/L 03/27/2024 12:48 PM CDT [facility] BUN 10 7 - 26 mg/dL 03/27/2024 12:48 PM CDT [facility] Creatinine 1.09 0.57 - 1.11 mg/dL 03/27/2024 12:48 PM T [facility] Alkaline Phosphatase 103 40 - 150 U/L 03/27/2024 12:48 PM CDT [facility] ALT 14 0 - 55 U/L 03/27/2024 12:48 PM CDT [facility] AST 20 5 - 34 U/L 03/27/2024 12:48 PM CDT [facility] Protein Total 8.2 6.4 - 8.3 gm/dL 03/27/2024 12:48 PM CDT [facility] Albumin 4.2 3.4 - 5.0 gm/dL 03/27/2024 12:48 PM CDT [facility] Bilirubin Total 0.5 0.2 - 1.2 mg/dL 03/27/2024 12:48 PM CDT [facility] eGFR by CKD-EPI 58(L) >=90 mL/min/1.7 3 m2 03/27/2024 12:48 PM CDT [facility] Blood BLOOD SPECIMEN / Unknown Venipuncture / Unknown 03/27/2024 12:21 PM CDT 03/27/2024 12:31 PM CDT Portia Kraft PA-C LAB - ANTIQUE REFINISHER RY ORDERABLES Performing Organization Address City/[facility]/ZIP Co de Phone Number [facility] [address] [place], [place] [phone] * LIPASE BLOOD (03/27/2024 12:21 PM CDT) Only the most recent of4 resultswithin the time period is included. Lipase 13 <60 U/L 03/27/2024 12:48 PM CDT [facility] Blood BLOOD SPECIMEN / Unknown Venipuncture / Unknown 03/27/2024 12:21 PM CDT 03/27/2024 12:31 PM CDT Portia Kraft PA-C LAB - ANTIQUE REFINISHER RY ORDERABLES Performing Organization Address City/[facility]/ZIP Co de Phone Number [facility] [address] [place] [phone] * GLUCOSE - POINT OF CARE (11/29/2017 11:50 AM CDT) Only the most recent of22 resultswithin the time period is included. Glucose WB/POC 104 70 - 106 mg/dL 11/29/2017 7:52 PM CDT [facility] Blood BLOOD SPECIMEN / Unknown 11/29/2017 11:50 AM CDT 11/29/2017 7:52 PM CDT Kenn Gordon MD LAB - POINT OF CARE ORDERABLES [facility] [address] [place] [address] * (ABNORMAL) BASIC METABOLIC PANEL (CALCIUM TOTAL) (11/29/2017 3:27 AM CDT) Only the most recent of3 resultswithin the time period is included. Glucose 128(H) 74 - 106 mg/dL 11/29/2017 4:04 AM CDT [facility] Sodium 143 136 - 145 mmol/L 11/29/2017 4:04 AM CDT [facility] Potassium 3.3(L) 3.5 - 5.1 mmol/L 11/29/2017 4:04 AM CDT [facility] Chloride 112(H) 98 - 107 mmol/L 11/29/2017 4:04 AM CDT [facility] CO2 26 22 - 31 mmol/L 11/29/2017 4:04 AM CDT [facility] Calcium 7.3(L) 8.5 - 10.1 mg/dL 11/29/2017 4:04 AM CDT [facility] Anion Gap 5(L) 8 - 16 mmol/L 11/29/2017 4:04 AM CDT [facility] BUN 3(L) 7 - 21 mg/dL 11/29/2017 4:04 AM CDT [facility] Creatinine 0.51 0.50 - 1.30 mg/dL 11/29/2017 4:04 AM CDT [facility] eGFR by MDRD >60 >60 mL/min/1.7 3m2 11/29/2017 4:04 AM CDT [facility] eGFR by MDRD >60 >60 mL/min/1.7 3m2 11/29/2017 4:04 AM CDT [facility] Blood BLOOD SPECIMEN / Unknown Lab Venipuncture / Unknown 11/29/2017 3:27 AM CDT 11/29/2017 3:40 AM CDT Kenn Gordon MD LAB - CHEMISTRY [facility] Organization Address City/State/ZIP Co de Phone Number [facility] [address] [phone] * US ABDOMEN LIMITED (11/28/2017 3:49 PM CDT) Anatomical Region Laterality Modality Abdomen Ultrasound 11/28/2017 3:58 PM CDT Impressions 11/28/2017 4:00 PM CDT Small left renal cyst. Prior cholecystectomy. Narrative 11/28/2017 4:00 PM CDT Abdominal ultrasound INDICATION: Abdominal pain COMPARISON: CT report dated 11/26/2017 TECHNIQUE: Real-time sonographic imaging of the abdomen was performed and limited to structures in the right upper quadrant. FINDINGS: The echogenicity of the visualized head and body of the pancreas appears normal. Pancreatic duct is visible measuring 2.8 mm. Echogenicity of the liver appears normal. Visualized main portal and hepatic veins appear patent. Extrahepatic common duct is mildly dilated following cholecystectomy measuring 6.5 mm. The gallbladder is surgically absent. The right kidney measures 12.5 x 5.4 x 6.3 cm without hydronephrosis. Left kidney measures 11 x 6.5 x 5.6 cm with a 2.2 cm cyst. There is no hydronephrosis. Urinary bladder appears normal. Procedure Note Mikhail Dawkins MD - 11/28/2017 Abdominal ultrasound INDICATION: Abdominal pain COMPARISON: CT report dated 11/26/2017 TECHNIQUE: Real-time sonographic imaging of the abdomen was performed and limited to structures in the right upper quadrant. FINDINGS: The echogenicity of the visualized head and body of the pancreas appears normal. Pancreatic duct is visible measuring 2.8 mm. Echogenicity of the liver appears normal. Visualized main portal and hepatic veins appear patent. Extrahepatic common duct is mildly dilated following cholecystectomy measuring 6.5 mm. The gallbladder is surgically absent. The right kidney measures 12.5 x 5.4 x 6.3 cm without hydronephrosis. Left kidney measures 11 x 6.5 x 5.6 cm with a 2.2 cm cyst. There is no hydronephrosis. Urinary bladder appears normal. IMPRESSION Small left renal cyst. Prior cholecystectomy. Kenn Gordon MD US ORDERABLES * (ABNORMAL) HEMOGLOBIN A1C (11/27/2017 2:36 AM CDT) Hemoglobin A1c 9.4(H) 4.2 - 6.3 % 11/27/2017 3:50 AM CDT [facility] Estimated Average Glucose 223 mg/dL 11/27/2017 3:50 AM CDT [facility] Whole Blood BLOOD SPECIMEN WITH EDTA / Unknown Lab Venipuncture / Unknown 11/27/2017 2:36 AM CDT 11/27/2017 3:21 AM CDT Betito Villarreal MD LAB - CHEMISTRY TODD ZAVALA Performing Organization Address City/[facility]/ZIP Co de Phone Number [facility] [address] [place], [place] [id number] * (ABNORMAL) AMYLASE BLOOD (11/26/2017 12:46 PM CDT) Amylase 125(H) 15 - 115 U/L 11/26/2017 7:21 PM CDT [facility] Blood BLOOD SPECIMEN / Unknown Venipuncture / Unknown 11/26/2017 12:46 PM CDT 11/26/2017 12:58 PM CDT Jerry Khanna PA-C LAB - CHEMISTRY [place]D [place] Performing Organization Address City/[facility] Co de Phone Number [facility] [address] [place] [phone] * JAMILAH SCREENING DIGITAL IMAGE BILATERAL G0202 (04/08/2014 2:20 PM CDT) Only the most recent of2 resultswithin the time period is included. Anatomical Region Laterality Modality Breast Bilateral Mammography [...] participate in the care of your patient. [facility] utilizes [employer] as a reminder system to notify patients of their next recommended mammogram. Vadim Rivers MD MAMMO ORDERABLES * GROSS + MICRO EXAM (05/18/2011 7:30 AM CDT) Only the most recent of5 resultswithin the time period is included. Result CASE NUMBER [id number] Comment: ORDERING PHYSICIAN BROWN ACOSTA SPECIMEN TYPE Colon Date 05/18/2011 Physician Lisa Acosta Gross Description The specimen is received in Formalin labeled with the patient's name, Tete Kincaid, and right colon polyp. It consists of five irregular fragments of soft yellow wolf tissue ranging in size from 1-3 mm in greatest dimension, entirely submitted in a single cassette. JF valencia Microscopic Exam Sections show fragment of colonic mucosa with features of tubular adenoma. High grade dysplasia or malignancy is not seen. MC/vl Diagnosis I. Right colon, polyp, biopsy -- Tubular adenoma MC/vl [employer] Assistant vl Pathologist Leroy Ga MD [place]. 05/21/2011 1017 <1> CPT code 57154 MISCELLANEOUS SAMPLES / Unknown 05/18/2011 7:30 AM CDT 05/18/2011 12:26 PM CDT Historical Provider LAB - PATHOLOGY/C YTOLOGY ORDERABLES * ENDOSCOPY, COLON, SCREENING (05/18/2011) Brown Acosta MD GI PROCEDURE ORDERAB LES * XR FOOT 3+VW RIGHT ROUTINE (05/01/2011 1:25 PM CDT) Anatomical Region Laterality Modality Ankle / Foot Radiographic Winsome ging 05/01/2011 1:37 PM CDT Impressions 05/01/2011 1:37 PM CDT Navicular changes as noted. Degenerative changes. Narrative 05/01/2011 1:37 PM CDT Right foot 3 views. HISTORY: Pain in foot. Three views of the foot demonstrate degenerative changes at the first metatarsal phalangeal joint. There is either old fracture or bipartite navicular with a separate bony fragment seen medially. Spurring is present on the os calcis. Procedure Note Rush Solomon MD - 05/01/2011 Right foot 3 views. HISTORY: Pain in foot. Three views of the foot demonstrate degenerative changes at the first metatarsal phalangeal joint. There is either old fracture or bipartite navicular with a separate bony fragment seen medially. Spurring is present on the os calcis. IMPRESSION Navicular changes as noted. Degenerative changes. Ehab Anderson [facility] O RDERABLES * US BREAST UNILATERAL LEFT (02/12/2011 3:38 PM CDT) Anatomical Region Laterality Modality Breast Left Ultrasound 02/12/2011 3:51 PM CDT Narrative 02/12/2011 3:51 PM CDT EXAMINATION: Left digital diagnostic mammogram on 02/12/2011 with left breast ultrasound. 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 The tissue density is fatty. Multiple views of the left breast are obtained and compared with the prior examination of 08/14/2010. As before, there are 2 nodules in the left breast best seen on the cc views. Both are smoothly marginated and noncalcified. The larger of the 2 measures about 16 mm and the smaller measures about 6 mm. They are unchanged in appearance from the prior examination. Sonographic examination of the left breast is then performed. Comparison is made with the prior examination of 08/14/2010. At the 9 o'clock position 4 cm from the nipple, a 15 mm wider than solid nodule is seen and this is unchanged in appearance from the prior study and is most compatible with a benign fibroadenoma. At the 9 o'clock position 2 cm from the nipple, a smoothly marginated solid wider than taller nodule is seen measuring about 6 to 7 mm seen before and should be a fibroadenoma as well. At the one o'clock position 7 cm from the nipple another wider than taller smoothly marginated solid nodule is seen measuring up to 10 mm. This was seen before and is unchanged. A 5 mm simple cyst is present at the one o'clock position 8 cm from the nipple. At this point, another short-term followup reevaluation is recommended. ASSESSMENT: BIRADS Category 3: Probably benign finding. Short interval follow up suggested.. RECOMMENDATION: Six month followup left breast screening mammogram with left breast ultrasound at the time of the patient's usual screening examination of the right side . Procedure Note Silvestre Coker MD - 02/13/2011 EXAMINATION: Left digital diagnostic mammogram on 02/12/2011 with left breast ultrasound. 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 The tissue density is fatty. Multiple views of the left breast are obtained and compared with the prior examination of 08/14/2010. As before, there are 2 nodules in the left breast best seen on the cc views. Both are smoothly marginated and noncalcified. The larger of the 2 measures about 16 mm and the smaller measures about 6 mm. They are unchanged in appearance from the prior examination. Sonographic examination of the left breast is then performed. Comparison is made with the prior examination of 08/14/2010. At the 9 o'clock position 4 cm from the nipple, a 15 mm wider than solid nodule is seen and this is unchanged in appearance from the prior study and is most compatible with a benign fibroadenoma. At the 9 o'clock position 2 cm from the nipple, a smoothly marginated solid wider than taller nodule is seen measuring about 6 to 7 mm seen before and should be a fibroadenoma as well. At the one o'clock position 7 cm from the nipple another wider than taller smoothly marginated solid nodule is seen measuring up to 10 mm. This was seen before and is unchanged. A 5 mm simple cyst is present at the one o'clock position 8 cm from the nipple. At this point, another short-term followup reevaluation is recommended. ASSESSMENT: BIRADS Category 3: Probably benign finding. Short interval follow up suggested.. RECOMMENDATION: Six month followup left breast screening mammogram with left breast ultrasound at the time of the patient's usual screening examination of the right side . Vadim Rivers MD US ORDERABLES * JAMILAH DIAG DIRECT DIG IMAGE UNI LEFT [id number] (02/12/2011 3:14 PM CDT) Anatomical Region Laterality Modality Left Mammography 02/12/2011 3:51 PM CDT Narrative 02/12/2011 3:51 PM CDT EXAMINATION: Left digital diagnostic mammogram on 02/12/2011 with left breast ultrasound. INDICATION: Short-term followup study of nodularity ARTIFICIAL INSEMINATION TECHNICIAN: RT Ryan, RM FINDINGS: Computer assisted detection was utilized. The tissue density is fatty. Multiple views of the left breast are obtained and compared with the prior examination of 08/14/2010. As before, there are 2 nodules in the left breast best seen on the cc views. Both are smoothly marginated and noncalcified. The larger of the 2 measures about 16 mm and the smaller measures about 6 mm. They are unchanged in appearance from the prior examination. Sonographic examination of the left breast is then performed. Comparison is made with the prior examination of 08/14/2010. At the 9 o'clock position 4 cm from the nipple, a 15 mm wider than solid nodule is seen and this is unchanged in appearance from the prior study and is most compatible with a benign fibroadenoma. At the 9 o'clock position 2 cm from the nipple, a smoothly marginated solid wider than taller nodule is seen measuring about 6 to 7 mm seen before and should be a fibroadenoma as well. At the one o'clock position 7 cm from the nipple another wider than taller smoothly marginated solid nodule is seen measuring up to 10 mm. This was seen before and is unchanged. A 5 mm simple cyst is present at the one o'clock position 8 cm from the nipple. At this point, another short-term followup reevaluation is recommended. ASSESSMENT: BIRADS Category 3: Probably benign finding. Short interval follow up suggested.. RECOMMENDATION: Six month followup left breast screening mammogram with left breast ultrasound at the time of the patient's usual screening examination of the right side . Procedure Note Silvestre Coker MD - 02/12/2011 EXAMINATION: Left digital diagnostic mammogram on 02/12/2011 with left breast ultrasound. INDICATION: Short-term followup study of nodularity ARTIFICIAL INSEMINATION TECHNICIAN: RT Ryan, RM FINDINGS: Computer assisted detection was utilized. The tissue density is fatty. Multiple views of the left breast are obtained and compared with the prior examination of 08/14/2010. As before, there are 2 nodules in the left breast best seen on the cc views. Both are smoothly marginated and noncalcified. The larger of the 2 measures about 16 mm and the smaller measures about 6 mm. They are unchanged in appearance from the prior examination. Sonographic examination of the left breast is then performed. Comparison is made with the prior examination of 08/14/2010. At the 9 o'clock position 4 cm from the nipple, a 15 mm wider than solid nodule is seen and this is unchanged in appearance from the prior study and is most compatible with a benign fibroadenoma. At the 9 o'clock position 2 cm from the nipple, a smoothly marginated solid wider than taller nodule is seen measuring about 6 to 7 mm seen before and should be a fibroadenoma as well. At the one o'clock position 7 cm from the nipple another wider than taller smoothly marginated solid nodule is seen measuring up to 10 mm. This was seen before and is unchanged. A 5 mm simple cyst is present at the one o'clock position 8 cm from the nipple. At this point, another short-term followup reevaluation is recommended. ASSESSMENT: BIRADS Category 3: Probably benign finding. Short interval follow up suggested.. RECOMMENDATION: Six month followup left breast screening mammogram with left breast ultrasound at the time of the patient's usual screening examination of the right side . Vadim Rivers MD MAMMO ORDERABLES * US BREAST BILATERAL (08/14/2010 3:57 PM RIVET BUCKER) Anatomical Region Laterality Modality Breast Bilateral Ultrasound 08/14/2010 3:54 PM RIVET BUCKER Narrative 08/14/2010 3:54 PM RIVET BUCKER EXAMINATION: Bilateral digital diagnostic mammogram on 08/14/2010 with bilateral breast ultrasound. 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 The tissue density is average. [< patient returned for additional evaluation of both breasts based on the recent screening mammogram On the right side, the nodule of interest is present in the upper outer quadrant and the images today show a smoothly marginated noncalcified 5 mm nodule which contains fat and therefore should be a lymph node. On the left side, there are 2 nodules confirmed medially and inferiorly and both are smoothly marginated and noncalcified. The largest of the two measures about 15 mm size well with the smaller measuring about 6 mm. Sonographic examination of both breasts is then performed. On the right side, there is a 5 mm smoothly marginated hypoechoic nodule at the 11 o'clock position 10 cm from the nipple and this should correspond with the mammographic findings. I do not see any definite fat within it. On the left side, several solid nodule are present. 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 At this point, short-term followup reevaluation of a left-sided recommended unless prior films have been found and stability of the mammographic findings can be assessed. ASSESSMENT: BIRADS Category 3: Probably benign finding. Short interval follow up suggested. RECOMMENDATION: Six month followup left breast mammogram and ultrasound- see above discussion . Procedure Note Silvestre Coker MD - 08/15/2010 EXAMINATION: Bilateral digital diagnostic mammogram on 08/14/2010 with bilateral breast ultrasound. 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 The tissue density is average. [< patient returned for additional evaluation of both breasts based on the recent screening mammogram On the right side, the nodule of interest is present in the upper outer quadrant and the images today show a smoothly marginated noncalcified 5 mm nodule which contains fat and therefore should be a lymph node. On the left side, there are 2 nodules confirmed medially and inferiorly and both are smoothly marginated and noncalcified. The largest of the two measures about 15 mm size well with the smaller measuring about 6 mm. Sonographic examination of both breasts is then performed. On the right side, there is a 5 mm smoothly marginated hypoechoic nodule at the 11 o'clock position 10 cm from the nipple and this should correspond with the mammographic findings. I do not see any definite fat within it. On the left side, several solid nodule are present. 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 At this point, short-term followup reevaluation of a left-sided recommended unless prior films have been found and stability of the mammographic findings can be assessed. ASSESSMENT: BIRADS Category 3: Probably benign finding. Short interval follow up suggested. RECOMMENDATION: Six month followup left breast mammogram and ultrasound- see above discussion . Vadim Rivers MD US ORDERABLES * JAMILAH DIAG DIRECT DIG IMAGE BILATERAL [id number] (08/14/2010 3:26 PM RIVET BUCKER) Anatomical Region Laterality Modality Bilateral Mammography 08/14/2010 3:54 PM RIVET BUCKER Narrative 08/14/2010 3:54 PM RIVET BUCKER EXAMINATION: Bilateral digital diagnostic mammogram on 08/14/2010 with bilateral breast ultrasound. INDICATION: Abnormal portable canteen operator: RT Ryan, RM FINDINGS: Computer assisted detection was utilized. The tissue density is average. [< patient returned for additional evaluation of both breasts based on the recent screening mammogram On the right side, the nodule of interest is present in the upper outer quadrant and the images today show a smoothly marginated noncalcified 5 mm nodule which contains fat and therefore should be a lymph node. On the left side, there are 2 nodules confirmed medially and inferiorly and both are smoothly marginated and noncalcified. The largest of the two measures about 15 mm size well with the smaller measuring about 6 mm. Sonographic examination of both breasts is then performed. On the right side, there is a 5 mm smoothly marginated hypoechoic nodule at the 11 o'clock position 10 cm from the nipple and this should correspond with the mammographic findings. I do not see any definite fat within it. On the left side, several solid nodule are present. 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 At this point, short-term followup reevaluation of a left-sided recommended unless prior films have been found and stability of the mammographic findings can be assessed. ASSESSMENT: BIRADS Category 3: Probably benign finding. Short interval follow up suggested. RECOMMENDATION: Six month followup left breast mammogram and ultrasound- see above discussion . Procedure Note Silvestre Coker MD - 08/14/2010 EXAMINATION: Bilateral digital diagnostic mammogram on 08/14/2010 with bilateral breast ultrasound. 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 The tissue density is average. [< patient returned for additional evaluation of both breasts based on the recent screening mammogram On the right side, the nodule of interest is present in the upper outer quadrant and the images today show a smoothly marginated noncalcified 5 mm nodule which contains fat and therefore should be a lymph node. On the left side, there are 2 nodules confirmed medially and inferiorly and both are smoothly marginated and noncalcified. The largest of the two measures about 15 mm size well with the smaller measuring about 6 mm. Sonographic examination of both breasts is then performed. On the right side, there is a 5 mm smoothly marginated hypoechoic nodule at the 11 o'clock position 10 cm from the nipple and this should correspond with the mammographic findings. I do not see any definite fat within it. On the left side, several solid nodule are present. 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 At this point, short-term followup reevaluation of a left-sided recommended unless prior films have been found and stability of the mammographic findings can be assessed. ASSESSMENT: BIRADS Category 3: Probably benign finding. Short interval follow up suggested. RECOMMENDATION: Six month followup left breast mammogram and ultrasound- see above discussion . Vadim Rivers MD MAMMO ORDERABLES * CARDIAC RHYTHM STRIP ORDER (09/16/2009 8:59 PM RIVET BUCKER) Narrative 09/16/2009 8:59 PM RIVET BUCKER Ordered by an unspecified provider. Transcriptions Document, Scanned - 09/12/2009 12:00 AM RIVET BUCKER Scanned Document CARDIAC SERVICES ORD ERABLES * HCG URINE QUALITATIVE (09/12/2009 8:00 AM RIVET BUCKER) Only the most recent of2 resultswithin the time period is included. HCG Qual Urine Negative SEE BELOW [facility] Comment: Normal, Negative Pos, Sensitivity 25 MIU/ML Comment hCG Urine [facility] Comment: For optimal results, it is best to test the first urine voided in the morning because it contains the greatest concentration of hCG. URINE / Unknown 09/12/2009 8 :00 AM RIVET BUCKER 09/12/2009 8:16 AM RIVET BUCKER Seb Lagunas MD LAB - URINALYSIS ORD ERABLES Performing Organization Address [facility] Co de Phone Number [facility] [address] [place], [place] [phone] * TYPE + SCREEN PANEL (09/08/2009 5:37 PM RIVET BUCKER) ABO Rh A POS SEE BELOW [facility] Comment: Weak D testing is not performed at [facility] Antibody Screen NEG [facility] BLOOD SPECIMEN / Unknown 09/08/2009 5:37 PM RIVET BUCKER 09/08/2009 5:37 PM RIVET BUCKER Vadim Rivers MD LAB - BLOOD BANK ORD ERABLES Performing Organization Address [facility] Co de Phone Number [facility] [address] [place] [phone] Care Teams Quality Consultant Relationship Specialty Start Date End Date Vadim Rivers MD PCP - OBGYN Obstetrics 04/08/14 Palma Gilbert MD [facility] [place] [address] PCP - General 12/05/17
--- OUTSIDE RECORDS SUMMARY | 2024-10-05 11:43 | XMS_ITS | Clinical Summary ---
Author Organization [facility] [address] [place] [id number] Care Team Providers Care Double Bottom Driver Name Role Phone Mir Floyd MD Unavailable [phone] Bozena Hull MD Unavailable [phone] Will Lundberg MD Unavailable [phone] No, Physician Primary Care Provider [phone] Allergies Active Allergy Reactions Criticality Noted Date Comments Dulaglutide Swelling Medium 08/29/2022 Morphine Hallucinations Medium 02/12/2019 Oxycodone-Acetaminophen Nausea & Vomiting Low 01/02 Propoxyphene-Acetaminophe n Dizziness Low 09/06/2009 STOMACH PROBLEMS Medications aspirin 81 mg enteric coated tablet 3 Active pen needle, diabetic (Pen Needle) 31 gauge x 5/16 needle Use to inject 1-4 times daily as directed 100 each 11 3 Active rosuvastatin (CRESTOR) 10 mg tablet Take 1 tablet (10 mg total) by mouth daily 90 tablet 3 4 Active lisinopril-hyd roCHLOROthiazi de (ZESTORETIC) 20-12.5 mg per tablet Take 1 tablet by mouth daily 90 tablet 3 4 Active blood-glucose sensor (FreeStyle Theo 3 Plus Sensor) deviceIndicati ons:Type 2 diabetes mellitus with hyperglycemia, with long-term current use of insulin (HCC) Change sensor every 15 days 2 each 4 Active insulin lispro (HumaLOG) 200 unit/mL (3 mL) pen for injectionIndic ations:Type 2 diabetes mellitus with hyperglycemia, with long-term current use of insulin (HCC) Inject 0.03-0.08 mL (6-16 Units total) under the skin 3 (three) times a day with meals 45 mL 4 Active LANTUS 100 unit/mL (3 mL) pen for injectionIndic ations:Type 2 diabetes mellitus with hyperglycemia, with long-term current use of insulin ([facility]) INJECT 40 UNITS SUBCUTANEOUSLY NIGHTLY 36 mL 4 Active methIMAzole (TAPAZOLE) 5 mg tabletIndicati ons:Hyperthyro idism Take 1 tablet (5 mg total) by mouth daily 90 tablet 1 4 025 Active omeprazole (PriLOSEC) 40 mg capsule Take 1 capsule (40 mg total) by mouth 2 (two) times a day Please take 30 minutes before breakfast and dinner 180 capsule 1 4 Active cholestyramine (QUESTRAN) 4 gram powder Take 1 packet (4 g total) by mouth daily Dissolve in 8 oz of liquid and drink before a meal. Take other medications 2 hours prior or 6 hours after. 30 packet 11 4 025 Active blood-glucose sensor (FreeStyle Theo 3 Sensor) deviceIndicati ons:Type 2 diabetes mellitus with hyperglycemia, with long-term current use of insulin (HCC) Change sensor every 14 days 2 each 6 4 Active propranoloL (INDERAL) 20 mg tablet Take 1 tablet by mouth twice daily 60 tablet 4 Active Active Problems Problem Noted Date Diagnosed Date LUQ pain 08/11/2024 Anemia 08/11/2024 Duodenal ulcer 08/11/2024 Gastric ulcer 08/11/2024 Left upper quadrant abdominal pain 08/06/2024 Assessment & Plan (08/06/2024 3:46 PM AUTOMATION MANAGER): Chronic, worsening Ordered routine lab work Ordered ultrasound abdomen and CT abdomen Referral to Gastroenterology Morbid (severe) obesity due to excess calories 0 01/16/2024 Assessment & Plan (01/16/2024 3:21 PM CDT): Chronic problem, not at goal. Work on healthy lifestyle. Hyperlipidemia associated with type 2 diabetes opal trevino 05/25/2023 Assessment & Plan (08/06/2024 3:45 PM AUTOMATION MANAGER): Continue statin therapy Assessment & Plan (01/16/2024 3:18 PM CDT): Chronic problem. On statin therapy, no changes. Assessment & Plan (05/25/2023 1:24 PM CDT): Continue statin therapy Hypertension associated with diabetes 05/25/2023 Assessment & Plan (08/06/2024 3:45 PM AUTOMATION MANAGER): Controlled on lisinopril, HCTZ. No changes. Assessment & Plan (01/16/2024 3:18 PM CDT): Controlled on lisinopril, HCTZ. No changes. Assessment & Plan (05/25/2023 1:24 PM CDT): Chronic, well controlled Continue Lisinopril-HCTZ Thyroiditis 05/05/2023 Hyperthyroidism 05/05/2023 Assessment & Plan (08/06/2024 3:44 PM AUTOMATION MANAGER): Chronic, unknown status Check thyroid labs today and further plans based on it Reviewed patient's thyroid labs Decrease methimazole to 5 mg oral daily and repeat thyroid function test in 3 months Assessment & Plan (01/16/2024 3:19 PM CDT): Chronic problem, not at goal. Resume MMI 20 mg daily. Continue propranolol 20 mg BID. We reviewed hyperthyroidism management, and need for frequent labs especially early in course of disease, including labs between visits. I placed orders for her to repeat in 6 weeks. Assessment & Plan (05/25/2023 1:26 PM CDT): Chronic, uncontrolled Pt currently on Methimazole 30 mg oral daily Propranolol 40 mg oral t.i.d. Plan to recheck TFT today and further plans based on it Shortness of breath 05/05/2023 High anion gap metabolic acidosis 05/05/2023 Dysuria 05/05/2023 Acute chest pain 05/04/2023 Sinus tachycardia 03/15/2023 Encounter for wellness examination 08/28/2022 Assessment & Plan (08/29/2022 11:01 PM AUTOMATION MANAGER): Ordered CBC, cmp, lipid, hgb a1c,TSH w/ reflex to t4 Colonoscopy up to date Pap smear referral placed to ob Mammo referral placed [id number] given F/u in 1 year for annual Iron deficiency anemia 07/24/2018 Generalized abdominal pain 01/02/2018 Overview (01/02/2018): Added automatically from request for surgery [id number] Assessment & Plan (01/02/2018 3:21 PM CDT): Etiology is unclear. Recent history of pancreatitis and s/p recent MRCP per patient (result unavailable). Upper GI on 01/02/18 reported normal esophagus, gastric ulcer with clean base, multiple duodenal ulcers with clean base, and erythematous mucosa in the antrum which was biopsied. Amylase and lipase wnl. GI has been consulted for which we appreciate their evaluation and recommendations. PRN analgesics. Full liquid diet and advance as tolerated. PUD (peptic ulcer disease) 01/02/2018 Type 2 diabetes mellitus wit h hyperglycemia, with long-term current use of insulin 01/02/2018 Assessment & Plan (08/06/2024 3:44 PM AUTOMATION MANAGER): Chronic, uncontrolled, slowly improving but still above goal A1c 9.1% Goal A1c at least less than 7.5-7% Defer GLP 1 agonist therapy due to history pancreatitis in the past Patient did not tolerate SGLT2 inhibitors Counseled on diet and exercise For now advised to continue current dose of insulin regimen check labs today Assessment & Plan (01/16/2024 3:21 PM CDT): Chronic problem, not at goal. She had frequent yeast infections on Jardiance. Intolerant of Trulicity (and has h/o pancreatitis) and metformin. Increase Lantus to 40 units. Increase HL to 8 units TID aC + 2:50 >150. Also, she needs to change HL dosing to aC instead of waiting for blood sugar to get high after eating and then dose it. Let us know how this works for her, send a note in a couple weeks via [employer]. Assessment & Plan (05/25/2023 1:32 PM CDT): Chronic, uncontrolled, worsening A1c 11.1 % - counseled on diet and exercise - Lantus 35 units SQ daily - Humalog 6 units three times with meals + below correctional scale 151 - 200 + 2 units 201 - 250 + 4 units 251 - 300 + 6 units 301 - 350 + 8 units Over 351 + 10 units Start Jardiance 25 mg oral daily Advised good oral hydration Daily foot care Advised to make an dilated eye exam soon Assessment & Plan (08/29/2022 11:00 PM AUTOMATION MANAGER): The patient was counseled on a heart-healthy, diabetic-friendly diet, as well as life-style modification. Education provided on the diagnosis and risks of the disease. We will continue to monitor routine labs. Additionally, She was counseled on routine diabetic eye exams, foot exams, and other preventive care. Most recent A1c on file: Continue regimen of ozempic 0.5mg weekly and lantus 25 units at night A1c ordered today Micro/Cr ur ratio ordered F/u in 3 months Assessment & Plan (01/02/2018 3:17 PM CDT): Uncontrolled. Hold orals. SSI ordered. Last A1c 11/27/17 was 9.4. Monitor blood sugars closely. Hypertension 01/02/2018 Assessment & Plan (08/29/2022 10:59 PM AUTOMATION MANAGER): Bp in the office today BP Readings from Last 1 Encounters: 08/29/22 130/70 Continue current regimen of lisinopril 10mg daily Recommend DASH diet, heart-healthy lifestyle, exercise. Discussed the risks of hypertension. F/u in 3 months Assessment & Plan (01/02/2018 3:18 PM CDT): Controlled with lisinopril. Resolved Problems Problem Noted Date Diagnosed Date Resolved Date RUQ abdominal pain 08/29/2022 4 Assessment & Plan (08/29/2022 10:54 PM AUTOMATION MANAGER): Possibly MSK S/p cholestectomy Ct abdomen ordered Abnormal LFTs 07/24/2018 08/11/2024 Encounters Date Type Department Care Team Description 5 Telephone [facility] Specialists of [address], [place] [address] Bozena Hull MD Letter for School/Work 4 Telephone [facility] Gastroenterology at [address] [place] [address] Faiza Snow MD 4 Telephone [facility] Specialists of [address] [address] Bozena Hull MD Med Management (FLS 3 Sensor) 4 9:40 AM AUTOMATION MANAGER - 4 11:59 PM AUTOMATION MANAGER Hospital Encounter [facility] Imaging and Radiology [address] [place] [phone] Left upper quadrant abdomina l pain Discharge Disposition: Discharge to home or self care 4 9:40 AM AUTOMATION MANAGER - 4 11:59 PM AUTOMATION MANAGER Hospital Encounter [facility] ` [id number] [place] [id number] Left upper quadrant abdomina l pain Discharge Disposition: Discharge to home or self care 4 11:58 AM AUTOMATION MANAGER Anesthesia Event [facility] GI Lab [address] [place] [phone] Garland Vizcaino MD 4 11:30 AM AUTOMATION MANAGER - 4 12:00 PM AUTOMATION MANAGER Surgery [facility] GI [facility] [address] [place] [phone] Faiza Snow MD ESOPHAGOGASTRODUODENOSCOPY BIOPSY 4 10:23 AM AUTOMATION MANAGER - 4 1:22 PM AUTOMATION MANAGER Hospital Encounter [facility] GI Lab [address] [place] [phone] Faiza Snow MD LUQ pain; Anemia, unspecified type; Gastric ulcer, unspecified chronicity, unspecified whether gastric ulcer hemorrhage or perforation present Discharge Disposition: Discharge to home or self care 4 12:25 PM AUTOMATION MANAGER Lab [address] [phone] Anemia, unspecified type; LUQ pain 4 11:00 AM AUTOMATION MANAGER Office Visit [facility] Gastroenterology at [address] [phone] Faiza Snow MD LUQ pain (Primary Dx); Anemia, unspecified type; Duodenal ulcer; Gastric ulcer, unspecified chronicity, unspecified whether gastric ulcer hemorrhage or perforation present 4 Telephone [facility] Specialists of [address] [address] Bozena Hull MD 4 Telephone [facility] Gastroenterology at [address] [phone] Faiza Snow MD 4 Telephone [facility] Gastroenterology at [address] [phone] Faiza Snow MD Appointment 4 Telephone [facility] Gastroenterology at [address] [phone] Faiza Snow MD 4 3:50 PM AUTOMATION MANAGER Lab [address] [phone] Left upper quadrant abdomina l pain; Type 2 diabetes mellitus with hyperglycemia, with long-term current use of insulin (HCC); Dark stools 4 3:00 PM AUTOMATION MANAGER Office Visit [facility] Specialists of [address] [phone] Bozena Hull MD Type 2 diabetes mellitus with hyperglycemia, with long-term current use of insulin (HCC) (Primary Dx); Left upper quadrant abdominal pain; Dark stools; Hyperthyroidism; Hyperlipidemia associated with type 2 diabetes mellitus (HCC); Hypertension associated with diabetes (HCC) 4 Telephone [facility] Special[facility] of [address] [address] Noemi Serrano PA Med Refill (Humalog ) 4 Telephone [facility] Specialists of [address] [address] Bozena Hull MD Med Management (FSL 3) from Last 3 Months Immunizations Name Administration Dates Next Due Influenza, Quadrivalent, Spl it, Preservative Free, Intramuscular 05/09/2020,05/28/2019 Influenza, Unspecified 05/26/2022,05/26/2021 Moderna SARS-CoV-2 Monovalent Vaccination (12+ Y RS) 09/20/2020 Pneumococcal Conjugate Pcv20 08/29/2022 Surgical History Surgery Date Site/Laterality Comments SHOULDER SURGERY left CHOLECYSTECTOMY HYSTERECTOMY SECTION x2 COLONOSCOPY 08/26/2012 - 08/25/2013 date of last colonoscopy 2012 Medical History Medical History Date Comments Pancreatitis Diabetes mellitus (HCC) Hypertension Diverticulosis Type 2 diabetes mellitus (HCC) GERD (gastroesophageal reflux disease) Anemia Hyperthyroidism with thyroiditis Family History Medical History Relation Name Comments Pancreatic cancer Brother Diabetes Father Hypertension Father Diabetes Mother Hypertension Mother Relation Name Status Comments Brother Father Mother Alive Social History Tobacco Use Types Packs/Day Years Used Date Smoking Tobacco: Never Smokeless Tobacco: Never Tobacco Cessation:Counseling Given: Not Answered Alcohol Use Standard Drinks/Week Comments No 0 (1 standard drink = 0.6 oz pur e alcohol) AUDIT-C Answer Date Recorded Frequency of Alcohol Consumption Not on file 08/12/2024 Q2: How many drinks containi ng alcohol do you have on a typical day when you are drinking? Patient does not drink Frequency of Binge Drinking Not on file 07/26 PHQ-2 Answer Date Recorded PHQ-2 Total Score (If total score is 3 or more points, staff should administer the PHQ-9) 0 08/29/2022 Personal Safety Answer Date Recorded Have you ever been in or are you currently in a harmful physical or emotional relationship or is someone making you feel afraid or unsafe? Denies 08/12/2024 Comments No Sex and Gender Information Value Date Recorded Sex Assigned at Not on file Legal Sex Female 12:22 AM AUTOMATION MANAGER Gender Identity Female 09/17/2022 11:02 AM AUTOMATION MANAGER Sexual Orientation Straight 09/17/2022 11 :02 AM AUTOMATION MANAGER Obstetrics History Last Filed Vital Signs Vital Sign Reading Time Taken Comments Blood Pressure 144/77 08/12/2024 12:50 PM AUTOMATION MANAGER Pulse 90 08/12/2024 12:50 PM AUTOMATION MANAGER Temperature 36.7 C (98 F) 05/06/2023 12:02 PM CDT Respiratory Rate 12 08/12/2024 12:50 PM AUTOMATION MANAGER Oxygen Saturation 99% 08/12/2024 12:50 PM AUTOMATION MANAGER Inhaled Oxygen Concentration - - Weight 91.6 kg (202 lb) 08/12/2024 11:39 AM AUTOMATION MANAGER Height 160 cm (5' 3 ) 08/12/2024 11:39 AM AUTOMATION MANAGER Body Mass Index 35.78 08/12/2024 11:39 AM AUTOMATION MANAGER Plan of Treatment Health Maintenance Due Date Last Done Comments Dilated Eye Exam 1963 DTaP/Tdap/Td Vaccine (1 - Tdap) 1974 Hepatitis B Screening 1981 Zoster Vaccine (1 of 2) 2013 Breast Cancer Screening-Mammogram 04/17/2020 04/17/2019, 04/17/2019, 04/08/2014 Depression Screening 08/29/2023 08/29/2022, 09/02/2018, 07/24/2018, Additional history exists Regular Well Visit/Exam 18-64 08/29/2023 08/29/2022 Covid-19 Vaccine (2 - 2023-2 5 season) 2024 09/20/2020 Influenza Vaccine (#1) 2024 , 05/26/2021, 05/09/2020, Additional history exists Hemoglobin A1C 02/03/2025 08/05/2024, 05/2 10/2023, 05/23/2023, Additional history exists Albumin Creatinine Ratio, Urine 08/05/2025 , 05/23/2023 Foot Exam 08/05/2025 08/05/2024, 05/23/2023 Lipid Panel 08/05/2025 08/05/2024, 03/15/2023 eGFR 08/05/2025 08/05/2024, 04/27, 05/06/2023, Additional history exists Colon Cancer Screening-Colonoscopy 03/03/2028 03/03/2018 Hepatitis C Screening Completed 02/13/2018 Colon Cancer Screening-CT Colonography Discontinued 03/03/2018 Colon Cancer Screening-DNA Stool Discontinued 03/03/20 Colon Cancer Screening-FIT Discontinued 03/03/2018 Colon Cancer Screening-Sigmoidoscopy Discontinued 03/03/2018 Pneumococcal vaccine <65 Completed 08/29/2022 Procedures Procedure Name Priority Date/Time Associated Diagnosis Comments CT ABDOMEN W WO CONTRAST Schedule Routine, Read Routine (OP Routine) 08/18/2024 11:28 AM AUTOMATION MANAGER Left upper quadrant abdominal pain US ABDOMEN COMPLETE Schedule Routine, Read Routine (OP Routine) 08/18/2024 10:48 AM AUTOMATION MANAGER Left upper quadrant abdominal pain SURGICAL PATHOLOGY Routine 08/12/2024 1:55 PM AUTOMATION MANAGER LUQ pain Anemia, unspecified type Gastric ulcer, unspecified chronicity, unspecified whether gastric ulcer hemorrhage or perforation present POCT GLUCOSE DEVICE Routine 08/12/2024 12:33 PM AUTOMATION MANAGER ESOPHAGOGASTRODUODENOSCOPY BIOPSY 08/12/2024 11:57 AM AUTOMATION MANAGER LUQ pain Anemia, unspecified type Gastric ulcer, unspecified chronicity, unspecified whether gastric ulcer hemorrhage or perforation present EGD 08/12/2024 11:23 AM AUTOMATION MANAGER POCT GLUCOSE DEVICE Routine 08/12/2024 11:14 AM AUTOMATION MANAGER DIFFERENTIAL AUTO Routine 08/11/2024 12:22 PM AUTOMATION MANAGER LUQ pain TISSUE TRANSGLUTAMINASE, IGA Routine 12:22 PM AUTOMATION MANAGER LUQ pain IGA Routine 08/11/2024 12:22 PM AUTOMATION MANAGER LUQ pain LIPASE Routine 08/11/2024 12:22 PM AUTOMATION MANAGER LUQ pain CRP (ACUTE PHASE) Routine 08/11/2024 12:22 PM AUTOMATION MANAGER LUQ pain CBC WITH AUTO DIFFERENTIAL Routine 08/11 12:22 PM AUTOMATION MANAGER LUQ pain IRON PROFILE W/ IBC Routine 08/11/2024 12:22 PM AUTOMATION MANAGER Anemia, unspecified type FERRITIN Routine 08/11/2024 12:22 PM AUTOMATION MANAGER Anemia, unspecified type FOLATE Routine 08/11/2024 12:22 PM AUTOMATION MANAGER Anemia, unspecified type VITAMIN B12 Routine 08/11/2024 12:22 PM AUTOMATION MANAGER Anemia, unspecified type EGFR Routine 08/05/2024 3:53 PM AUTOMATION MANAGER Type 2 diabetes mellitus with hyperglycemia, with long-term current use of insulin (HCC) DIFFERENTIAL AUTO Routine 08/05/2024 3:53 PM AUTOMATION MANAGER Type 2 diabetes mellitus with hyperglycemia, with long-term current use of insulin (HCC) Dark stools TSH Routine 08/05/2024 3:53 PM AUTOMATION MANAGER Type 2 diabetes mellitus with hyperglycemia, with long-term current use of insulin (HCC) T3, FREE Routine 08/05/2024 3:53 PM AUTOMATION MANAGER Type 2 diabetes mellitus with hyperglycemia, with long-term current use of insulin (HCC) T4, FREE Routine 08/05/2024 3:53 PM AUTOMATION MANAGER Type 2 diabetes mellitus with hyperglycemia, with long-term current use of insulin (HCC) THYROID PEROXIDASE ANTIBODY Routine 07/26 3:53 PM AUTOMATION MANAGER Type 2 diabetes mellitus with hyperglycemia, with long-term current use of insulin (HCC) THYROID STIMULATING IMMUNOGLOBULIN Routine 08/05/2024 3:53 PM AUTOMATION MANAGER Type 2 diabetes mellitus with hyperglycemia, with long-term current use of insulin (HCC) TSH RECEPTOR ANTIBODY Routine 08/05/2024 3:53 PM AUTOMATION MANAGER Type 2 diabetes mellitus with hyperglycemia, with long-term current use of insulin (HCC) COMPREHENSIVE METABOLIC PANEL Routine 3:53 PM AUTOMATION MANAGER Type 2 diabetes mellitus with hyperglycemia, with long-term current use of insulin (HCC) ALBUMIN CREATININE RATIO, URINE Routine 08/05/2024 3:53 PM AUTOMATION MANAGER Type 2 diabetes mellitus with hyperglycemia, with long-term current use of insulin (HCC) LIPID PANEL Routine 08/05/2024 3:53 PM AUTOMATION MANAGER Type 2 diabetes mellitus with hyperglycemia, with long-term current use of insulin (HCC) CBC WITH AUTO DIFFERENTIAL Routine 08/05 3:53 PM AUTOMATION MANAGER Type 2 diabetes mellitus with hyperglycemia, with long-term current use of insulin (HCC) Dark stools AMYLASE Routine 08/05/2024 3:53 PM AUTOMATION MANAGER Left upper quadrant abdominal pain LIPASE Routine 08/05/2024 3:53 PM AUTOMATION MANAGER Left upper quadrant abdominal pain POCT HEMOGLOBIN A1C Routine 08/05/2024 3:02 PM AUTOMATION MANAGER Type 2 diabetes mellitus with hyperglycemia, with long-term current use of insulin (HCC) POCT GLUCOSE Routine 08/05/2024 3:02 PM AUTOMATION MANAGER Type 2 diabetes mellitus with hyperglycemia, with long-term current use of insulin (HCC) COLONOSCOPY 03/03/2018 1:31 PM CDT HEPATITIS C ANTIBODY Routine 02/13/2018 12:27 PM CDT Abnormal LFTs from Last 3 Months or Most Recently Relevant to Health Maintenance Results * CT Abdomen W WO Contrast (08/18/2024 11:28 AM AUTOMATION MANAGER) Anatomical Region Laterality Modality Body N/A Computed Tomogra phy 08/18/2024 12:2 2 PM AUTOMATION MANAGER Addenda Addendum by Heber Webb MD on 08/18/2024 1:04 PM AUTOMATION MANAGER ADDENDUM: There is a 3 mm nonobstructing calculus in the upper pole of the right kidney. This is unchanged from previous. Electronically signed by: Heber Webb M.D. Impressions 08/18/2024 12:22 PM AUTOMATION MANAGER 1. Cholecystectomy. 2. Small renal cysts are stable. 3. No inflammatory lesion is seen. Electronically signed by: Heber Webb M.D. Narrative 08/18/2024 12:22 PM AUTOMATION MANAGER EXAMINATION: CT ABDOMEN W WO CONTRAST DATE: 08/18/2024 11:45 AM HISTORY: Left upper quadrant abdominal pain. COMPARISON: 10/18/2020 TECHNIQUE: CT of the abdomen was performed prior to and following the intravenous administration of 92 mL Optiray 350. Postcontrast images were obtained in arterial and delayed phases. Coronal and sagittal reconstructions were obtained. FINDINGS: Scans through the lung bases are unremarkable. The heart size is normal. No evidence of a pleural effusion. The liver, pancreas and spleen appear normal. The gallbladder has been removed. No evidence of free air or free fluid in the abdomen. There is a small cyst in each kidney. The kidneys and adrenal glands otherwise appear normal. There is a retroaortic left renal vein. No evidence of retroperitoneal adenopathy. The abdominal aorta is unremarkable. No evidence of bowel obstruction. No inflammatory lesion is seen. No significant bony abnormality is seen. Procedure Note Heber Webb MD - 08/18/2024 EXAMINATION: CT ABDOMEN W WO CONTRAST DATE: 08/18/2024 11:45 AM HISTORY: Left upper quadrant abdominal pain. COMPARISON: 10/18/2020 TECHNIQUE: CT of the abdomen was performed prior to and following the intravenous administration of 92 mL Optiray 350. Postcontrast images were obtained in arterial and delayed phases. Coronal and sagittal reconstructions were obtained. FINDINGS: Scans through the lung bases are unremarkable. The heart size is normal. No evidence of a pleural effusion. The liver, pancreas and spleen appear normal. The gallbladder has been removed. No evidence of free air or free fluid in the abdomen. There is a small cyst in each kidney. The kidneys and adrenal glands otherwise appear normal. There is a retroaortic left renal vein. No evidence of retroperitoneal adenopathy. The abdominal aorta is unremarkable. No evidence of bowel obstruction. No inflammatory lesion is seen. No significant bony abnormality is seen. IMPRESSION: 1. Cholecystectomy. 2. Small renal cysts are stable. 3. No inflammatory lesion is seen. Electronically signed by: Heber Webb M.D. [facility] Sotero Bey MD IMG CT PROCEDURES E dited Result - Final * US Abdomen Complete (08/18/2024 10:48 AM AUTOMATION MANAGER) Anatomical Region Laterality Modality Abdomen N/A Ultrasound 08/18/2024 1:02 PM AUTOMATION MANAGER Impressions 08/18/2024 1:02 PM AUTOMATION MANAGER 1. Status post cholecystectomy. 2. The liver and bile ducts appear normal. 3. The pancreas, spleen and kidneys appear normal. 4. No evidence of ascites. Electronically signed by: Heber Webb M.D. Narrative 08/18/2024 1:02 PM AUTOMATION MANAGER EXAM: US ABDOMEN COMPLETE DATE: 08/18/2024 11:00 AM CLINICAL HISTORY: Left upper quadrant abdominal pain. COMPARISON: CT abdomen/pelvis from 10/18/2020. FINDINGS: The gallbladder has been removed. The liver is normal in size and echogenicity. No evidence of intrahepatic bile duct dilatation. The common bile duct is normal and measures 4 mm in diameter. Color Doppler imaging of the portal vein shows normal blood flow. The pancreas and spleen are normal in size and echogenicity. Both kidneys are normal in size and echogenicity. The right kidney measures 12.0 cm in bipolar length. The left kidney measures 10.8 cm in bipolar length. There is a cyst in the mid left kidney which measures up to 2.2 cm. The abdominal aorta and inferior vena cava are unremarkable. No evidence of ascites. Procedure Note Heber Webb MD - 08/18/2024 EXAM: US ABDOMEN COMPLETE DATE: 08/18/2024 11:00 AM CLINICAL HISTORY: Left upper quadrant abdominal pain. COMPARISON: CT abdomen/pelvis from 10/18/2020. FINDINGS: The gallbladder has been removed. The liver is normal in size and echogenicity. No evidence of intrahepatic bile duct dilatation. The common bile duct is normal and measures 4 mm in diameter. Color Doppler imaging of the portal vein shows normal blood flow. The pancreas and spleen are normal in size and echogenicity. Both kidneys are normal in size and echogenicity. The right kidney measures 12.0 cm in bipolar length. The left kidney measures 10.8 cm in bipolar length. There is a cyst in the mid left kidney which measures up to 2.2 cm. The abdominal aorta and inferior vena cava are unremarkable. No evidence of ascites. IMPRESSION: 1. Status post cholecystectomy. 2. The liver and bile ducts appear normal. 3. The pancreas, spleen and kidneys appear normal. 4. No evidence of ascites. Electronically signed by: Heber Webb M.D. Supra Sotero Bey MD IM US PROCEDURES F inal Result * Surgical pathology (08/12/2024 1:55 PM AUTOMATION MANAGER) Tissue (Esophageal biopsy) 08/12/2024 12:06 PM AUTOMATION MANAGER Tissue (Esophageal biopsy) 08/12/2024 12:13 PM AUTOMATION MANAGER Tissue (Esophageal biopsy) 08/12/2024 12:16 PM AUTOMATION MANAGER Narrative PATHOLOGY - 08/13/2024 7:07 PM AUTOMATION MANAGER [facility] results best viewed via link to PDF [facility] Department of Pathology [address] [place] [id number] Note to Patients: This report may contain a detailed description of human tissue sent by a health care provider to the laboratory for pathologic evaluation. The content of this report is essential for diagnosis and may provide important critical findings. This information may be unfamiliar to patients to review without a medical professional present. It is advised that the patient review this report in the presence of a health care provider who can answer questions and explain the details. Final Report Patient Name: TETE RODRIGUEZ Address: [address] [place] [address] , [place] [address] Gender: F : 1965 (Age: 59) Service: Gastro Location: GI Lab Hospital #: [id number] Patient Type: [facility] Taken: 08/12/2024 Received: 08/12/2024 Accessioned: 08/12/2024 Reported: 08/13/2024 Physician(s):Faiza Snow Diagnosis: A. Stomach, biopsy: - Minimal reactive gastropathy. B. Duodenum, biopsy: - No pathologic diagnosis. C. Z-line, biopsy: - Fragments of benign squamocolumnar mucosa. - No evidence of intestinal metaplasia, dysplasia or malignancy. Josue Nava M.D. Report Electronically Reviewed and Signed Out By Josue Nava M.D. 08/13/2024 19:07:17 Specimen(s) Received: A: Stomach biopsy B: Duodenum biopsy C: Z line biopsy Microscopic Description: A. Microscopic examination of the gastric biopsy, examined at multiple levels, shows fragments of minimally edematous and congested gastric mucosa with changes consistent with a minimal reactive gastropathy. I do not identify evidence of microorganisms morphologically compatible with Helicobacter species by routine light microscopy. There is no evidence of dysplasia or malignancy. B. Microscopic examination of the duodenum, examined at multiple levels, shows fragments of small intestinal type mucosa compatible with derivation from the duodenum, demonstrating overall preservation of villous architecture with an inflammatory component that is essentially within normal limits. There is no evidence of dysplasia or malignancy. C. Microscopic examination of the Z-line biopsy, examined at multiple levels, shows fragments of benign squamocolumnar mucosa with minimal nonspecific, reactive alterations. There is a minimal nonspecific chronic inflammatory infiltrate, however there are no changes diagnostic of reflux esophagitis, eosinophilic esophagitis, or any other specific clinical etiology. There is no evidence of intestinal-type metaplasia, dysplasia or malignancy. Clinical History: Anemia. Gastric ulcer, unspecified chronicity. Gross Description: The specimen is submitted in three formalin containers labeled TETE RODRIGUEZ . A. The first container is labeled stomach . It is 2 fragments of wolf tissue measuring 2 mm. All in A. B. The second container is labeled duodenum . It is 4 fragments of wolf tissue between 1 and 2 mm. All in B. C. The third container is labeled Z-line biopsy . It is 2 fragments of wolf tissue measuring 1 mm. All in C. T.A. Yemi Bell.Wilton./Erika Colón M.D. REPORT IMAGES AND SCANNED DOCUMENTS, IF INCLUDED, ONLY VIEWABLE IN PDF VERSION OF REPORT The performance characteristics of some immunohistochemical stains, fluorescence in-situ hybridization tests and immunophenotyping by flow cytometry cited in this report (if any) were determined by the Surgical Pathology Department at [facility] as part of an ongoing quality improvement manager program and in compliance with federally mandated regulations drawn from the Clinical Laboratory Improvement Act of 1988 (CLIA '88). Some of these tests rely on the use of analyte specific reagents and are subject to specific labeling requirements by the US Food and Drug Administration. Such diagnostic tests may only be performed in a facility that is certified by the Department of Health and Human Services as a high complexity laboratory under CLIA '88. The FDA has determined that such clearance or approval is not necessary. This test is used for clinical purposes. It should not be regarded as investigational or for research. Nevertheless, federal rules concerning the medical use of analyte specific reagents require that the following disclaimer be attached to the report: This test was developed and its performance characteristics determined by the Surgical Pathology Department [facility]. It has not been cleared or approved by the U. S. Food and Drug Administration. Note for decalcified specimens: This assay has not been validated on decalcified tissues. Results should be interpreted with caution given the possibility of false negativity on decalcified specimens Faiza Snow MD LAB PATHOLOGY ORDERABLES Fi nal Result [facility] [address] [place] [address] * POCT glucose (08/12/2024 12:33 PM AUTOMATION MANAGER) Glucose, POC 190 70 - 199 mg/dL Blood 08/12/2024 12:3 3 PM AUTOMATION MANAGER 08/12/2024 12:33 PM AUTOMATION MANAGER Faiza Snow MD LAB POCT ORDERABLES - DEVIC E Final Result [facility] [address] Department [place] [place] [address] * EGD (08/12/2024 11:23 AM AUTOMATION MANAGER) Anatomical Region Laterality Modality Other Narrative Procedure Note Faiza Snow MD - 08/12/2024 11:23 AM CST [facility] Endoscopy Lab Patient Name: Tete Rodriguez Procedure Date: 08/12/2024 11:23AM Date of : 1965 Admit Type: Outpatient Age: 59 Gender: Female Note Status: Finalized Attending MD: Faiza Snow M.D. Procedure Date: 08/12/2024 Procedure: Upper GI endoscopy Indications: Abdominal pain in the left upper quadrant,Functional Dyspepsia, history of upper GI tract ulcers Providers: Faiza Snow M.D., Oswaldo Gottlieb, CASSIA (Anesthesia Staff), Lakeisha Forrest RN, Sebastián, Senior Tax Specialist Referring MD: Faiza Snow M.D. Medicines: Monitored Anesthesia Care Complications: No immediate complications. Estimated Blood Loss: Estimated blood loss was minimal. Procedure: Pre-Anesthesia Assessment: - Prior to the procedure, a History and Physicalwas performed, and patient medications and allergieswere reviewed. The patient's tolerance of previous anesthesia was also reviewed. The risks andbenefits of the procedure and the sedation options and risks were discussed with the patient. All questions were answered, and informed consent was obtained. Prior Anticoagulants: The patient has taken noanticoagulant or antiplatelet agents. ASA Grade Assessment: III -A patient with severe systemic disease. Afterreviewing the risks and benefits, the patient was deemed in satisfactory condition to undergo the procedure. - Prior to the procedure, a History and Physicalwas performed, and patient medications, allergies and sensitivities were reviewed. The patient'stolerance of previous anesthesia was reviewed. - The risks and benefits of the procedure and the sedation options and risks were discussed with the patient. All questions were answered and informed consent was obtained. After obtaining informed consent, the endoscope was passed under direct vision. Throughout theprocedure, the patient's blood pressure, pulse, and oxygen saturations were monitored continuously. The scopewas passed under direct vision. The Endoscope was introduced through the mouth, and advanced to the second part of duodenum. The upper GI endoscopy was performed with difficulty due to the patient'soxygen desaturation. Successful completion of theprocedure was aided by scope removal, additional oxygen and decreased sedation. Findings: The examined duodenum was normal. Biopsies for histology were takenwith a cold forceps for evaluation of celiac disease. Bile refluxing into the stomach was seen Diffuse mild inflammation characterized by congestion (edema),erythema and friability was found in the entire examined stomach. Biopsieswere taken with a cold forceps for histology. Biopsies were taken with acold forceps for Helicobacter pylori testing. The gastroesophageal flap valve was visualized endoscopically and classified as Hill Grade II (fold present, opens with respiration). A 2 cm hiatal hernia was present. The Z-line was irregular. Biopsies were taken with a cold forceps for histology. The exam of the esophagus was otherwise normal. Impression: - Normal examined duodenum. Biopsied. - Bile refluxing into the stomach was seen - Gastritis. Biopsied. - Gastroesophageal flap valve classified as HillGrade II (fold present, opens with respiration). - 2 cm hiatal hernia. - Z-line irregular. Biopsied. Recommendation: - Patient has a contact number available for emergencies. The signs and symptoms of potential delayed complications were discussed with thepatient. Return to normal activities tomorrow. Written discharge instructions were provided to thepatient. - Resume regular diet. - Continue present medications. - Await pathology results. - Your endoscopy suggests inflammation in the upperGI tract. To treat this, I recommend the followin. Avoid nonsteroidal anti-inflammatory drugs(NSAIDS) - examples of this category of medications to avoid include ibuprofen, advil, aleve, naproxen 2. Take an acid suppression medication (proton pump inhibitor) such as pantoprazole 40 mg twice a dayfor 8 weeks. Please take the medication 30 minutesbefore breakfast and dinner. After 8 weeks decrease todaily. Procedure Code(s): --- Professional --- 75040, Esophagogastroduodenoscopy, flexible, transoral; with biopsy, single or multiple Diagnosis Code(s): --- Professional --- K29.70, Gastritis, unspecified, without bleeding K44.9, Diaphragmatic hernia without obstruction or gangrene K22.89, Other specified disease of esophagus R10.12, Left upper quadrant pain K30, Functional dyspepsia CPT copyright 2020 [employer]. All rights reserved. The codes documented in this report are preliminary and upon nuclear supervising operator reviewmay be revised to meet current compliance requirements. Dr. Faiza Snow MD [facility] Faiza Snow M.D. 08/12/2024 12:32:30 PM Number of Addenda: 0 Note Initiated On: 08/12/2024 11:23 AM Faiza Snow MD ENDOSCOPY PROCEDURES Edited Result - Final * (ABNORMAL) POCT glucose (08/12/2024 11:14 AM AUTOMATION MANAGER) Glucose, POC 297(H) 70 - 199 mg/dL Blood 08/12/2024 11:1 4 AM AUTOMATION MANAGER 08/12/2024 11:14 AM AUTOMATION MANAGER Faiza Snow MD LAB POCT ORDERABLES - DEVIC E Final Result [facility] [address] Department [place] [address] * Differential, auto (08/11/2024 12:22 PM AUTOMATION MANAGER) Neutrophil abs 5.7 1.5 - 6.5 K/cumm Imm gran abs 0.1 0.0 - 0.1 K/cumm [facility] Lymphocyte abs 1.9 0.8 - 3.3 K/cumm [facility] Monocyte abs 0.5 0.2 - 0.8 K/cumm [facility] Eosinophil abs 0.1 0.0 - 0.5 K/cumm [facility] Basophil abs 0.1 0.0 - 0.1 K/cumm [facility] Neutrophil pct 67.8 % [facility] Comment: Interpretive Data Percent cell count reference ranges are not reported, since discordance with absolute values may lead to misinterpretation of CBC data. Current Interpretive Data was last revised on 2017. Imm gran pct 1.3 % [facility] Comment: Interpretive Data Percent cell count reference ranges are not reported, since discordance with absolute values may lead to misinterpretation of CBC data. Current Interpretive Data was last revised on 2017. Lymphocyte pct 23.0 % [facility] Comment: Interpretive Data Percent cell count reference ranges are not reported, since discordance with absolute values may lead to misinterpretation of CBC data. Current Interpretive Data was last revised on 2017. Monocyte pct 6.0 % [facility] Comment: Interpretive Data Percent cell count reference ranges are not reported, since discordance with absolute values may lead to misinterpretation of CBC data. Current Interpretive Data was last revised on 2017. Eosinophil pct 1.3 % [facility] Comment: Interpretive Data Percent cell count reference ranges are not reported, since discordance with absolute values may lead to misinterpretation of CBC data. Current Interpretive Data was last revised on 2017. Basophil pct 0.6 % [facility] Comment: Interpretive Data Percent cell count reference ranges are not reported, since discordance with absolute values may lead to misinterpretation of CBC data. Current Interpretive Data was last revised on 2017. Blood 08/11/2024 12:2 2 PM AUTOMATION MANAGER 08/11/2024 7:11 PM AUTOMATION MANAGER Faiza Snow MD LAB BLOOD ORDERABLES Final Result Performing Organization Address City[facility]/ZIP Co de Phone Number [facility] [address] [facility] [place] [place] [address] * (ABNORMAL) Iron profile w/ IBC (08/11/2024 12:22 PM AUTOMATION MANAGER) Pathologist [facility] Iron 51 35 - 145 mcg/dl TIBC 325 250 - 400 mcg/dL [facility] Trans[facility]in saturation 16(L) 20 - 50 % [facility] Blood 08/11/2024 12:2 2 PM AUTOMATION MANAGER 08/11/2024 7:11 PM AUTOMATION MANAGER Faiza Snow MD LAB BLOOD ORDERABLES Final Result Performing Organization Address [facility] de Phone Number MARY KAY [address] [facility] [place] [place] [address] * (ABNORMAL) CBC with auto differential (08/11/2024 12:22 PM AUTOMATION MANAGER) Pathologist [facility] WBC 8.4 3.8 - 9.9 K/cumm Hgb 10.5(L) 11.9 - 15.5 g/dL [facility] Hct 34.6(L) 35.6 - 45.5 % [facility] Plt 298 150 - 400 K/cumm [facility] MPV 10.4 9.1 - 12.3 fL [facility] RBC 3.89(L) 3.90 - 5.20 M/cumm [facility] MCV 88.9 81.3 - 96.4 fL [facility] MCH 27.0(L) 27.1 - 33.3 pg [facility] MCHC 30.3(L) 32.3 - 35.7 g/dL [facility] RDW CV 12.5 11.1 - 14.9 % [facility] RDW SD 40.4 35.7 - 48.1 fL [facility] NRBC abs 0.00 0.00 - 0.01 K/cumm [facility] Blood 08/11/2024 12:2 2 PM AUTOMATION MANAGER 08/11/2024 7:11 PM AUTOMATION MANAGER Faiza Snow MD LAB BLOOD ORDERABLES Final Result Performing Organization Address [facility] Co de Phone Number MARY [facility] [address] [facility] [place] [place] [address] * Tissue transglutaminase IgA (TGG-IgA Ab) (08/11/2024 12:22 PM AUTOMATION MANAGER) TTG ab, IgA <0.5 <=14.9 units/mL Comment: Interpretive data Negative: <15 units/mL Positive: > or equal to 15 units/mL Current interpretive data was last revised on 2016. Testing performed by: [facility], [address] [place] [address]., [id number] Blood 08/11/2024 12:2 2 PM AUTOMATION MANAGER 08/12/2024 10:00 AM AUTOMATION MANAGER us Faiza Snow MD LAB BLOOD ORDERABLES Final Result Performing Organization Address [facility] Co de Phone Number MARY [facility]AY [address] [place] [address] * CRP (acute phase) (08/11/2024 12:22 PM AUTOMATION MANAGER) CRP 9.2 <=10.0 mg/L Blood 08/11/2024 12:2 2 PM AUTOMATION MANAGER 08/11/2024 7:11 PM AUTOMATION MANAGER Faiza Snow MD LAB BLOOD ORDERABLES Final Result Performing Organization Address [facility] Co de Phone Number [facility]ARY [facility] [address] [facility] [place] [address] * Lipase (08/11/2024 12:22 PM AUTOMATION MANAGER) Lipase 16 10 - 99 Units/L Blood 08/11/2024 12:2 2 PM AUTOMATION MANAGER 08/11/2024 7:11 PM AUTOMATION MANAGER us Faiza Snow MD LAB BLOOD ORDERABLES Final Result Performing Organization Address [facility]/State/ZIP Co de Phone Number MARY [facility]AY [address] [facility] [place] [place] [address] * IgA (08/11/2024 12:22 PM AUTOMATION MANAGER) Immunoglobulin A 312 70 - 400 mg/dL Blood 08/11/2024 12:2 2 PM AUTOMATION MANAGER 08/11/2024 7:11 PM AUTOMATION MANAGER us Faiza Snow MD LAB BLOOD ORDERABLES Final Result Performing Organization Address [facility] Co de Phone Number [facility]ARY [facility] [address] [facility] [place] [address] * Folate (08/11/2024 12:22 PM AUTOMATION MANAGER) Folic acid >20.0 >=5.0 ng/mL Blood 08/11/2024 12:2 2 PM AUTOMATION MANAGER 08/11/2024 7:11 PM AUTOMATION MANAGER us Faiza Snow MD LAB BLOOD ORDERABLES Final Result Performing Organization Address [facility] Co de Phone Number MARY KAY [address] [facility] [place] [place] [address] * (ABNORMAL) Ferritin (08/11/2024 12:22 PM AUTOMATION MANAGER) Ferritin 172(H) 15 - 150 ng/mL Blood 08/11/2024 12:2 2 PM AUTOMATION MANAGER 08/11/2024 7:11 PM AUTOMATION MANAGER us Faiza Snow MD LAB BLOOD ORDERABLES Final Result Performing Organization Address [facility] Co de Phone Number [facility]ARY [facility] [address] [place] [address] * (ABNORMAL) Vitamin B12 (08/11/2024 12:22 PM AUTOMATION MANAGER) Pathologist [facility] Vitamin B12 2,623(H) 230 - 1,250 pg/mL Blood 08/11/2024 12:2 2 PM AUTOMATION MANAGER 08/11/2024 7:11 PM AUTOMATION MANAGER us Faiza Snow MD LAB BLOOD ORDERABLES Final Result Performing Organization Address [facility]/ZIP Co de Phone Number MARY K[facility] [address] [employer] [place], [place] [id number] * eGFR (08/05/2024 3:53 PM AUTOMATION MANAGER) Pathologist [facility] eGFR 83 >=60 mL/min/1. 73 m2 Comment: Interpretive Data Reference Interval Normal >/= 90 mL/min/1.73m2 Mildly decreased* 60 - 89 mL/min/1.73m2 Mildly to moderately decreased 45 - 59 mL/min/1.73m2 Moderately to severely decreased 30 - 44 mL/min/1.73m2 Severely decreased 15 - 29 mL/min/1.73m2 Kidney Failure < 15 mL/min/1.73m2 *Relative to young adult level Estimated glomerular filtration rate is determined by the 2020 CKD-EPI equation recommended by the National Kidney Foundation (A Unifying Approach to GFR Estimation: Recommendations of the NKF-ASK Task Force on Reassessing the Inclusion of Race in Diagnosing Kidney Disease, JASN 2020). The CKD-EPI equation should not be used for patients with unstable renal function and has not been validated in children and those over 70. Current interpretive data was last reviewed 2021. Blood 08/05/2024 3:53 PM AUTOMATION MANAGER 08/05/2024 6:49 PM AUTOMATION MANAGER us Bozena Bey MD LAB BLOOD ORDERABLE S Final Result Performing Organization Address [facility]/[place] [address] [address] Department of [employer] [place], [place] [id number] * Differential, auto (08/05/2024 3:53 PM AUTOMATION MANAGER) Pathologist [facility] Neutrophil abs 5.6 1.5 - 6.5 K/cumm Imm gran abs 0.0 0.0 - 0.1 K/cumm [facility] Lymphocyte abs 2.2 0.8 - 3.3 K/cumm [facility] Monocyte abs 0.5 0.2 - 0.8 K/cumm [facility] Eosinophil abs 0.1 0.0 - 0.5 K/cumm [facility] Basophil abs 0.1 0.0 - 0.1 K/cumm [facility] Neutrophil pct 65.6 % [facility] Comment: Interpretive Data Percent cell count reference ranges are not reported, since discordance with absolute values may lead to misinterpretation of CBC data. Current Interpretive Data was last revised on 2017. Imm gran pct 0.5 % [facility] Comment: Interpretive Data Percent cell count reference ranges are not reported, since discordance with absolute values may lead to misinterpretation of CBC data. Current Interpretive Data was last revised on 2017. Lymphocyte pct 26.1 % [facility] Comment: Interpretive Data Percent cell count reference ranges are not reported, since discordance with absolute values may lead to misinterpretation of CBC data. Current Interpretive Data was last revised on 2017. Monocyte pct 5.9 % [facility] Comment: Interpretive Data Percent cell count reference ranges are not reported, since discordance with absolute values may lead to misinterpretation of CBC data. Current Interpretive Data was last revised on 2017. Eosinophil pct 1.3 % [facility] Comment: Interpretive Data Percent cell count reference ranges are not reported, since discordance with absolute values may lead to misinterpretation of CBC data. Current Interpretive Data was last revised on 2017. Basophil pct 0.6 % [facility] Comment: Interpretive Data Percent cell count reference ranges are not reported, since discordance with absolute values may lead to misinterpretation of CBC data. Current Interpretive Data was last revised on 2017. Blood 08/05/2024 3:53 PM AUTOMATION MANAGER 08/05/2024 6:36 PM AUTOMATION MANAGER us Bozena Bey MD LAB BLOOD ORDERABLE S Final Result [facility] [address] Department [place] [address] * TSH receptor antibody (08/05/2024 3:53 PM AUTOMATION MANAGER) [facility] TSH receptor ab 1.32 0.00 - 1.75 IUnits/L [facility] Comment: ADDITIONAL INFORMATION At a decision limit of 1.75 IU/L, this assay has 97% sensitivity and 99% specificity for detection of Graves' disease. In healthy individuals and in patients with thyroid disease without diagnosis of Graves' disease, the upper limit of anti-TSHR values are 1.22 IU/L and 1.58 IU/L, respectively (97.5th percentiles). Test Performed by: [place] [address] Welding Supervisor: Rony Ortega Ph.D.; CLIA# [id number] Blood 08/05/2024 3:53 PM AUTOMATION MANAGER 08/05/2024 9:10 PM AUTOMATION MANAGER Bozena Bey MD LAB BLOOD ORDERABLE S Final Result [facility] [address] Department [place] [address] [facility] * (ABNORMAL) CBC with auto differential (08/05/2024 3:53 PM AUTOMATION MANAGER) [facility] WBC 8.6 3.8 - 9.9 K/cumm Hgb 10.7(L) 11.9 - 15.5 g/dL [facility] Hct 33.6(L) 35.6 - 45.5 % [facility] Plt 304 150 - 400 K/cumm [facility] MPV 10.5 9.1 - 12.3 fL [facility] RBC 3.90 3.90 - 5.20 M/cumm [facility] MCV 86.2 81.3 - 96.4 fL [facility] MCH 27.4 27.1 - 33.3 pg [facility] MCHC 31.8(L) 32.3 - 35.7 g/dL [facility] RDW CV 12.4 11.1 - 14.9 % [facility] RDW SD 39.2 35.7 - 48.1 fL [facility] NRBC abs 0.00 0.00 - 0.01 K/cumm [facility] Blood 08/05/2024 3:53 PM AUTOMATION MANAGER 08/05/2024 6:36 PM AUTOMATION MANAGER Bozena Bey MD LAB BLOOD ORDERABLE S Final Result Performing Organization Address [facility] Co de Phone Number NEVAEHMAGDI [address] Department [place] [place] [address] * (ABNORMAL) Thyroid peroxidase antibody (TPO) (08/05/2024 3:53 PM AUTOMATION MANAGER) Anti Thyroid Peroxidase 166(H) <=34 IUnits/mL Comment: ATPO Interpretive Data Results may be up to 28% higher in patients receiving Itraconazole. Current interpretive data was last revised 2020. Testing performed by: [facility], [address], [place]., [address] Blood 08/05/2024 3:53 PM AUTOMATION MANAGER 08/06/2024 9:43 AM AUTOMATION MANAGER us Bozena Bey MD LAB BLOOD ORDERABLE S Final Result Performing Organization Address [facility] Co de Phone Number MARY KAY BRINK [address] [address] Department [employer] [place] [address] * Thyroid stimulating immunoglobulin (08/05/2024 3:53 PM AUTOMATION MANAGER) TSIG <1.0 <=1.3 [place] ref Lab Comment: Test Performed by: [facility] [address] [place] [address] Welding Supervisor: Rony Ortega Ph.D.; CLIA# [id number] Blood 08/05/2024 3:53 PM AUTOMATION MANAGER 08/05/2024 9:09 PM AUTOMATION MANAGER Bozena Bey MD LAB BLOOD ORDERABLE S Final Result Performing Organization Address [facility] Co de Phone Number MARY KAY BRINK [address] [address] [facility] [place] [place] [address] [facility] * Albumin Creatinine Ratio, Urine (08/05/2024 3:53 PM AUTOMATION MANAGER) Albumin Ur <12.0 mg/L Comment: Interpretive Data No reference range established. Current interpretive data was last revised 2019. Creatinine Ur 127.6 mg/dL [facility] Comment: Interpretive Data No reference range established. Current interpretive data was last revised 2019. Albumin Creatinine Ratio, Ur <9 1 - 29 mg/g [facility] Urine 08/05/2024 3:53 PM AUTOMATION MANAGER 08/05/2024 6:37 PM AUTOMATION MANAGER Bozena Bey MD LAB URINE ORDERABLE S Final Result Performing Organization Address [facility] Co de Phone Number MARY KAY KEENA [address] [address] [place] [address] * T3, free (08/05/2024 3:53 PM AUTOMATION MANAGER) Free T3 2.7 2.0 - 4.4 pg/mL Blood 08/05/2024 3:53 PM AUTOMATION MANAGER 08/05/2024 6:36 PM AUTOMATION MANAGER Bozena Bey MD LAB BLOOD ORDERABLE S Final Result Performing Organization Address [facility] Co de Phone Number MARY KAY KEENA [address] [address] [facility] [place] [place] [address] * (ABNORMAL) TSH (08/05/2024 3:53 PM AUTOMATION MANAGER) Thyroid Stimulating Hormone 6.06(H) 0.30 - 4.20 mcIUnit/mL Blood 08/05/2024 3:53 PM AUTOMATION MANAGER 08/05/2024 6:36 PM AUTOMATION MANAGER us Bozena Bey MD LAB BLOOD ORDERABLE S Final Result MARY KAY BRINK [address] [address] [facility] [place] [place] [address] * T4, free (08/05/2024 3:53 PM AUTOMATION MANAGER) Free T4 1.10 0.90 - 1.70 ng/dL Blood 08/05/2024 3:53 PM AUTOMATION MANAGER 08/05/2024 6:36 PM AUTOMATION MANAGER us Bozena Bey MD LAB BLOOD ORDERABLE S Final Result Performing Organization Address [facility] Co de Phone Number MARY KAY KEENA [address] [address] [facility] [place] [place] [address] * Lipase (08/05/2024 3:53 PM AUTOMATION MANAGER) Lipase 17 10 - 99 Units/L Blood 08/05/2024 3:53 PM AUTOMATION MANAGER 08/05/2024 6:36 PM AUTOMATION MANAGER us Bozena Bey MD LAB BLOOD ORDERABLE S Final Result Performing Organization Address [facility] Co de Phone Number NEVAEHMAGDI [address] [address] [facility] [place] [place] [address] * Amylase (08/05/2024 3:53 PM AUTOMATION MANAGER) Amylase 71 30 - 99 Units/L Blood 08/05/2024 3:53 PM AUTOMATION MANAGER 08/05/2024 6:36 PM AUTOMATION MANAGER us Bozena Bey MD LAB BLOOD ORDERABLE S Final Result Performing Organization Address [facility]/ZIP Co de Phone Number MARY KAY [address] [address] [facility] [place] [place] [address] * Lipid panel (08/05/2024 3:53 PM AUTOMATION MANAGER) Cholesterol 175 30 - 199 mg/dL Comment: Interpretive Data Ages < or = 19 years Acceptable: <170 mg/dL Borderline high: 170-199 mg/dL High: >or= 200 mg/dL Ages > or = 20 years Desirable: <200 mg/dL Borderline high: 200-239 mg/dL High: >or= 240 mg/dL Literature References: 1. Expert Panel on Integrated Guidelines for Cardiovascular Health and Risk Reduction in Children and Adolescents. Pediatrics 2011;128:S213 2. NCEP Expert Panel. Circulation 2004;110:227 Current Interpretive Data was last revised on 2018. Triglycerides 117 <=149 mg/dL MARY KAY Comment: Interpretive Data Ages < or = 9 years Acceptable: <75 mg/dL Borderline high: 75-99 mg/dL High: >or= 100 mg/dL Ages 10 to 20 years Acceptable: <90 mg/dL Borderline high: 90-129 mg/dL High: >or= 130 mg/dL Ages > or = 20 years Desirable: <150 mg/dL Borderline high: 150-199 mg/dL High: 200-499 mg/dL Very high: >or= 499 mg/dL Literature References: 1. Expert Panel on Integrated Guidelines for Cardiovascular Health and Risk Reduction in Children and Adolescents. Pediatrics 2011;128:S213 2. NCEP Expert Panel. Circulation 2004;110:227 Current Interpretive Data was last revised on 2018. HDL 70 >=40 mg/dL MARY KAY BRINK Comment: Interpretive Data Ages < or = 19 years Acceptable: >45 mg/dL Borderline low: 40-45 mg/dL Low: <40 mg/dL Ages > or = 20 years Desirable: >or= 60 mg/dL Low: <40 mg/dL Literature References: 1. Expert Panel on Integrated Guidelines for Cardiovascular Health and Risk Reduction in Children and Adolescents. Pediatrics 2011;128:S213 2. NCEP Expert Panel. Circulation 2004;110:227 Current Interpretive Data was last revised on 2018. LDL, calculated 85 <=129 mg/dL MARY KAY BRINK Comment: Interpretive Data Ages < or = 19 years Acceptable: <110 mg/dL Borderline high: 110-129 mg/dL High: >or= 130 mg/dL Ages > or = 20 years Optimal: <100 mg/dL Near optimal: 100-129 mg/dL Borderline high: 130-159 mg/dL High: >160 mg/dL Calculated using the Anthony LDL-C estimating equation. This equation was implemented on 2024. Prior to this date LDL-C was estimated using the Friedewald equation. Literature References: 1. Expert Panel on Integrated Guidelines for Cardiovascular Health and Risk Reduction in Children and Adolescents. Pediatrics 2011;128:S213 2. NCEP Expert Panel. Circulation 2004;110:227 3. Anthony Delcid et al. [place] Cardiol. 2020 December 24;5(5):540-548. doi: 10.1001/jamacardio.2020.0013 Current Interpretive Data was last revised on 2024. Non-HDL Cholesterol 105 mg/dL [facility] Comment: Interpretive Data Ages < or = 19 years Acceptable: <120 mg/dL Borderline high: 120-144 mg/dL High: >145 mg/dL Ages > or = 20 years When triglycerides are >200 mg/dL, Non-HDL cholesterol is a secondary target of therapy with treatment goals that are 30 mg/dL greater than the LDL cholesterol target. Literature References: 1. Expert Panel on Integrated Guidelines for Cardiovascular Health and Risk Reduction in Children and Adolescents. Pediatrics 2011;128:S213 2. NCEP Expert Panel. Circulation 2004;110:227 Current Interpretive Data was last revised on 2018. Chol/HDL ratio 2 [facility] Blood 08/05/2024 3:53 PM AUTOMATION MANAGER 08/05/2024 6:36 PM AUTOMATION MANAGER us Bozena Bey MD LAB BLOOD ORDERABLE S Final Result MARY KAY [address] [address] Department [place] [address] * Comprehensive metabolic panel (08/05/2024 3:53 PM AUTOMATION MANAGER) Sodium 137 135 - 145 mmol/L Potassium, pl 3.9 3.3 - 4.9 mmol/L [facility] Chloride 99 97 - 110 mmol/L [facility] CO2 24 22 - 32 mmol/L [facility] Anion gap 14 2 - 15 mmol/L [facility] BUN 15 6 - 25 mg/dL [facility] Creatinine 0.81 0.60 - 1.10 mg/dL [facility] Glucose 182 70 - 199 mg/dL [facility] Comment: Interpretive Data Fasting glucose >/= 126 mg/dl is diagnostic for diabetes. Fasting is defined as no caloric intake for at least 8 hours. Fasting glucose between 100 mg/dl to 125 mg/dl is diagnostic of prediabetes. In a patient with classic symptoms of hyperglycemia or hyperglycemic crisis, a random glucose >/= 200 mg/dl is diagnostic for diabetes. In the absence of unequivocal hyperglycemia, results should be confirmed by repeat testing. The classification and Diagnosis of Diabetes Diabetes Care 202; 46: S19-S40. Current interpretive data was last revised 2022. Calcium 9.6 8.5 - 10.3 mg/dL [facility] Bilirubin, total 0.2 0.1 - 1.2 mg/dL [facility] Protein, pl 7.6 6.5 - 8.5 g/dL [facility] Albumin 4.4 3.5 - 5.0 g/dL [facility] Alk phos 64 40 - 130 Units/L [facility] ALT 13 7 - 45 Units/L [facility] AST 24 10 - 45 Units/L [facility] Blood 08/05/2024 3:53 PM AUTOMATION MANAGER 08/05/2024 6:36 PM AUTOMATION MANAGER Bozena Bey MD LAB BLOOD ORDERABLE S Final Result [facility] [address] [address] Department [place] [address] * POCT hemoglobin A1c (08/05/2024 3:02 PM AUTOMATION MANAGER) Hemoglobin A1C, POC 9.1 4.0 - 5.6 % Blood 08/05/2024 3:02 PM AUTOMATION MANAGER Bozena Bey MD POINT OF CARE TEST ORDERABLES Final Result * POCT glucose (08/05/2024 3:02 PM AUTOMATION MANAGER) Glucose Blood, POC 208 mg/dL Blood 08/05/2024 3:02 PM AUTOMATION MANAGER us Bozena Bey MD POINT OF CARE TEST ORDERABLES Final Result * COLONOSCOPY (03/03/2018 1:31 PM CDT) Anatomical Region Laterality Modality Other Narrative Procedure Note Yonny Prieto MD - 03/03/2018 1:31 PM CDT [facility] Endoscopy [facility] Patient Name: Tete Rodriguez Procedure Date: 03/03/2018 1:31 PM Date of : 1965 Admit Type: Outpatient Age: 53 Gender: Female Note Status: Finalized Attending MD: Yonny Prieto MD Procedure Date: 03/03/2018 Procedure: Colonoscopy Indications: Iron deficiency anemia Providers: Yonny Prieto MD, Tee Velasco (Anesthesia Staff),Jazlyn Hughes RN Referring MD: Medicines: Monitored Anesthesia Care Complications: No immediate complications. Estimated Blood Loss: Estimated blood loss: none. Procedure: Pre-Anesthesia Assessment: - Airway Examination: normal oropharyngeal airwayand neck mobility. - Respiratory Examination: clear to auscultation. - ASA Grade Assessment: II - A patient with mild systemic disease. - After reviewing the risks and benefits, thepatient was deemed in satisfactory condition to undergo the procedure. - The risks and benefits of the procedure and the sedation options and risks were discussed with the patient. All questions were answered and informed consent was obtained. After I obtained informed consent, the scope waspassed under direct vision. Throughout the procedure, the patient's blood pressure, pulse, and oxygensaturations were monitored continuously. The scope was passedunder direct vision. The Colonoscope CF-Q180 [id number] introduced through the anus and advanced to the the cecum, identified by the appendiceal orifice,ileocecal valve and palpation. The colonoscopy was performedwith ease. The patient tolerated the procedure well. The quality of the bowel preparation was evaluated using the BBPS (Andrews Bowel Preparation Scale) withscores of: Right Colon = 2 (minor amount of residualstaining, small fragments of stool and/or opaque liquid, but mucosa seen well), Transverse Colon = 2 (minoramount of residual staining, small fragments of stooland/or opaque liquid, but mucosa seen well) and Left Colon= 2 (minor amount of residual staining, small fragmentsof stool and/or opaque liquid, but mucosa seen well).The total BBPS score equals 6. The quality of the bowel preparation was good. The bowel preparation used was SUPREP. Findings: The perianal and digital rectal examinations were normal. A few small-mouthed diverticula were found in the sigmoid colon. Anal papilla(e) were hypertrophied. Impression: - Diverticulosis in the sigmoid colon. - Anal papilla(e) were hypertrophied. - No specimens collected. Recommendation: - Discharge patient to home (ambulatory). - Repeat colonoscopy in 10 years for screeningpurposes. - No aspirin, ibuprofen, naproxen, or other non-steroidal anti-inflammatory drugs. Procedure Code(s): --- Professional --- 92585, Colonoscopy, flexible; diagnostic, including collection of specimen(s) by brushing or washing,when performed (separate procedure) Diagnosis Code(s): --- Professional --- K62.89, Other specified diseases of anus andrectum D50.9, Iron deficiency anemia, unspecified K57.30, Diverticulosis of large intestine without perforation or abscess without bleeding CPT copyright 2017 [employer]. All rights reserved. The codes documented in this report are preliminary and upon nuclear supervising operator reviewmay be revised to meet current compliance requirements. Electronically signed by Yonny Prieto MD Yonny Prieto MD 03/03/2018 2:11:45 PM Number of Addenda: 0 Note Initiated On: 03/03/2018 1:31 PM Yonny Prieto MD ENDOSCOPY PROCEDURES Final Resul t * Hepatitis C antibody (02/13/2018 12:27 PM CDT) Hep C Ab Negative Negative [facility] Blood specimen (specimen) 02/13/2018 12:27 PM CDT 02/13/2018 5:42 PM CDT Narrative MARY KAY - 02/13/2018 6:47 PM CDT Yonny Prieto MD LAB MICROBIOLOGY - GENERAL ORDER BRYCE Final Result MARY KAY [address] [address] Department [place] [address] from Last 3 Months or Most Recently Relevant to Health Maintenance Insurance [facility] HMO/PPO Address: [address] [place] [id number] [facility] HMO/PPO Address: [address] [place] [phone] [place] [address] Advance Directives For more information, please contact: [phone] * Full Code (Latest Code Status on File) Date Activated Date Inactivated Comments 05/04/2023 9:25 PM 05/06/2023 7:19 PM * Full Code Date Activated Date Inactivated Comments 01/02/2018 7:37 AM 01/08/2018 2:35 PM Care Teams Double Bottom Driver Relationship Specialty Start Date End Date No, Physician PCP - General 01/16/24 Mir Floyd MD [address] [place], [place] [id number] Consulting Physician Interventional Cardiology 05/06/23 [place] [address] [address] [place] [address] Consulting Physician Endocrinology 05/06/23 Will Lundberg MD [address] [place] [address] [place] [address] Referring Physician Internal Medicine 05/06/23
--- OUTSIDE RECORDS SUMMARY | 2024-10-05 11:43 | XMS_ITS | Encounter Summary ---
Author Organization [facility] Address [address] [place] [address] Care Team Providers Care Mechatronics Engineer Name Role Phone Unavailable Primary Care Provider Unavailabl e Encounter Details Date Type Department Care Team (Late st Contact Info) Description 10/18/1999 Outpatient Historical [facility] Kian Young MD [address] [place] [phone] Social History Tobacco Use Types Packs/Day Years Used Date Smoking Tobacco: Never Assessed Comments Unknown Sex and Gender Information Value Date Recorded Sex Assigned at Not on file Legal Sex Female 4:20 AM LAB SUPPORT TECH Gender Identity Not on file Sexual Orientation Not on file documented as of this encounter Plan of Treatment Not on file documented as of this encounter Visit Diagnoses Not on filedocumented in this encounter
--- OUTSIDE RECORDS SUMMARY | 2024-10-05 11:43 | XMS_ITS | Encounter Summary ---
Author Organization [facility] Address [address] [place] [address] Care Team Providers Care Lock And Dam Equipment Repairer Name Role Phone Unavailable Primary Care Provider Unavailabl e Encounter Details Date Type Department Care Team (Late st Contact Info) Description 02/21/1999 Outpatient Historical [facility] Kian Young MD [address] [place] [phone] Social History Tobacco Use Types Packs/Day Years Used Date Smoking Tobacco: Never Assessed Comments Unknown Sex and Gender Information Value Date Recorded Sex Assigned at Not on file Legal Sex Female 4:20 AM FOREPART RASPER Gender Identity Not on file Sexual Orientation Not on file documented as of this encounter Plan of Treatment Not on file documented as of this encounter Visit Diagnoses Not on filedocumented in this encounter
--- OUTSIDE RECORDS SUMMARY | 2024-10-05 11:43 | XMS_ITS | Referral Summary ---
Author Organization [facility] Phys[facility] Building [address] [place] [id number] Care Team Providers Care Catering Administrative Assistant Name Role Phone Mir Floyd MD Unavailable Bozena Hull MD Unavailable [phone] Will Lundberg MD Unavailable [phone] No, Physician Primary Care Provider Encounters Date Type Department Care Team Description 5 Telephone [facility] [address] [address] Bozena Hull MD Letter for School/Work 4 Telephone [facility] Gastroenterology at [address], [place] [address] Faiza Snow MD 4 Telephone [facility] [address], [place] [address] Bozena Hull MD Med Management (FLS 3 Sensor) 4 9:40 AM REEXAMINER - 4 11:59 PM REEXAMINER Hospital Encounter [facility] Imaging and Radiology [id number] [place] [address] Left upper quadrant abdomina l pain Discharge Disposition: Discharge to home or self care 4 9:40 AM REEXAMINER - 4 11:59 PM REEXAMINER Hospital Encounter [facility] ` [id number] [place] [address] Left upper quadrant abdomina l pain Discharge Disposition: Discharge to home or self care 4 11:58 AM REEXAMINER Anesthesia Event [facility] GI Lab [address] [place] [address] Garland Vizcaino MD 4 11:30 AM REEXAMINER - 4 12:00 PM REEXAMINER Surgery [facility] [address] [place] [address] Faiza Snow MD ESOPHAGOGASTRODUODENOSCOPY BIOPSY 4 10:23 AM REEXAMINER - 4 1:22 PM REEXAMINER Hospital Encounter [facility] GI Lab [address] [place], [place] [id number] Faiza Snow MD LUQ pain; Anemia, unspecified type; Gastric ulcer, unspecified chronicity, unspecified whether gastric ulcer hemorrhage or perforation present Discharge Disposition: Discharge to home or self care 4 Telephone [facility] [address] [address] Bozena Hull MD 4 12:25 PM REEXAMINER Lab [address] [phone] Anemia, unspecified type; LUQ pain 4 Telephone [facility] Gastroenterology at [address] [address] Faiza Snow MD 4 11:00 AM REEXAMINER Office Visit [facility] Gastroenterology at [address] [address] Faiza Snow MD LUQ pain (Primary Dx); Anemia, unspecified type; Duodenal ulcer; Gastric ulcer, unspecified chronicity, unspecified whether gastric ulcer hemorrhage or perforation present 4 Telephone [facility] Gastroenterology at [address] [address] Faiza Snow MD Appointment 4 Telephone [facility] Gastroenterology at [address] [place] [address] Faiza Snow MD 4 3:50 PM REEXAMINER Lab [address] [address] Left upper quadrant abdomina l pain; Type 2 diabetes mellitus with hyperglycemia, with long-term current use of insulin (HCC); Dark stools 4 3:00 PM REEXAMINER Office Visit [facility] [address], [place] [address] Bozena Hull MD Type 2 diabetes mellitus with hyperglycemia, with long-term current use of insulin (HCC) (Primary Dx); Left upper quadrant abdominal pain; Dark stools; Hyperthyroidism; Hyperlipidemia associated with type 2 diabetes mellitus (HCC); Hypertension associated with diabetes (HCC) 4 Telephone [facility] [address] [address] Noemi Serrano PA Med Refill (Humalog ) 4 Telephone [facility] [address] [address] Bozena Hull MD Med Management (FSL 3) from Last 3 Months Allergies Active Allergy Reactions Criticality Noted Date [...] Change sensor every 15 days 2 each 11 4 Active insulin lispro (HumaLOG) 200 unit/mL (3 mL) pen for injectionIndic ations:Type 2 diabetes mellitus with hyperglycemia, with long-term current use of insulin ([facility]) Inject 0.03-0.08 mL (6-16 Units total) under the skin 3 (three) times a day with meals 45 mL 4 Active LANTUS 100 unit/mL (3 mL) pen for injectionIndic ations:Type 2 diabetes mellitus with hyperglycemia, with long-term current use of insulin ([facility]) INJECT 40 UNITS SUBCUTANEOUSLY NIGHTLY 36 mL [...] 08/06/2024 Assessment & Plan (08/06/2024 3:46 PM REEXAMINER): Chronic, worsening Ordered routine lab work Ordered ultrasound abdomen and CT abdomen Referral to Gastroenterology Morbid (severe) obesity due to excess calories 0 01/16/2024 Assessment & Plan (01/16/2024 3:21 PM CDT): Chronic problem, not at goal. Work on healthy lifestyle. Hyperlipidemia associated with type 2 diabetes opal trevino 05/25/2023 Assessment & Plan (08/06/2024 3:45 PM REEXAMINER): Continue statin therapy Assessment & Plan (01/16/2024 3:18 PM CDT): Chronic problem. On statin therapy, no changes. Assessment & Plan (05/25/2023 1:24 PM CDT): Continue statin therapy Hypertension associated with diabetes 05/25/2023 Assessment & Plan (08/06/2024 3:45 PM REEXAMINER): Controlled on lisinopril, HCTZ. No changes. Assessment & Plan (01/16/2024 3:18 PM CDT): Controlled on lisinopril, HCTZ. No changes. Assessment & Plan (05/25/2023 1:24 PM CDT): Chronic, well controlled Continue Lisinopril-HCTZ Thyroiditis 05/05/2023 Hyperthyroidism 05/05/2023 Assessment & Plan (08/06/2024 3:44 PM REEXAMINER): Chronic, unknown status Check thyroid labs today [...] 08/28/2022 Assessment & Plan (08/29/2022 11:01 PM REEXAMINER): Ordered CBC, cmp, lipid, hgb a1c,TSH w/ reflex to t4 Colonoscopy up to date Pap smear referral placed to ob Mammo referral placed [id number] given F/u in 1 year for annual Iron deficiency anemia 07/24/2018 Generalized abdominal pain 01/02/2018 Overview (01/02/2018): Added automatically from request for surgery [id number] Assessment & Plan (01/02/2018 3:21 PM CDT): [...] 01/02/2018 Assessment & Plan (08/06/2024 3:44 PM REEXAMINER): Chronic, uncontrolled, slowly improving but still above [...] a note in a couple weeks via [facility]. Assessment & Plan (05/25/2023 1:32 PM CDT): [...] soon Assessment & Plan (08/29/2022 11:00 PM REEXAMINER): The patient was counseled on a heart-healthy, [...] 01/02/2018 Assessment & Plan (08/29/2022 10:59 PM REEXAMINER): Bp in the office today BP Readings [...] 4 Assessment & Plan (08/29/2022 10:54 PM REEXAMINER): Possibly MSK S/p cholestectomy Ct abdomen ordered Abnormal LFTs 07/24/2018 08/11/2024 Immunizations Name Administration Dates Next Due Influenza, Quadrivalent, Spl it, Preservative Free, Intramuscular 05/09/2020,05/28/2019 Influenza, Unspecified 05/26/2022,05/26/2021 Moderna SARS-CoV-2 Monovalent Vaccination (12+ Y RS) 09/20/2020 Pneumococcal Conjugate Pcv20 08/29/2022 Social History Tobacco Use Types Packs/Day Years [...] on file Legal Sex Female 12:22 AM REEXAMINER Gender Identity Female 09/17/2022 11:02 AM REEXAMINER Sexual Orientation Straight 09/17/2022 11 :02 AM REEXAMINER Last Filed Vital Signs Vital Sign Reading Time Taken Comments Blood Pressure 144/77 08/12/2024 12:50 PM REEXAMINER Pulse 90 08/12/2024 12:50 PM REEXAMINER Temperature 36.7 C (98 F) 05/06/2023 12:02 PM CDT Respiratory Rate 12 08/12/2024 12:50 PM REEXAMINER Oxygen Saturation 99% 08/12/2024 12:50 PM REEXAMINER Inhaled Oxygen Concentration - - Weight 91.6 kg (202 lb) 08/12/2024 11:39 AM REEXAMINER Height 160 cm (5' 3 ) 08/12/2024 11:39 AM REEXAMINER Body Mass Index 35.78 08/12/2024 11:39 AM REEXAMINER Plan of Treatment Not on file Procedures Procedure Name Priority Date/Time Associated Diagnosis Comments CT ABDOMEN W WO CONTRAST Schedule Routine, Read Routine (OP Routine) 08/18/2024 11:28 AM REEXAMINER Left upper quadrant abdominal pain US ABDOMEN COMPLETE Schedule Routine, Read Routine (OP Routine) 08/18/2024 10:48 AM REEXAMINER Left upper quadrant abdominal pain SURGICAL PATHOLOGY Routine 08/12/2024 1:55 PM REEXAMINER LUQ pain Anemia, unspecified type Gastric ulcer, unspecified chronicity, unspecified whether gastric ulcer hemorrhage or perforation present POCT GLUCOSE DEVICE Routine 08/12/2024 12:33 PM REEXAMINER ESOPHAGOGASTRODUODENOSCOPY BIOPSY 08/12/2024 11:57 AM REEXAMINER LUQ pain Anemia, unspecified type Gastric ulcer, unspecified chronicity, unspecified whether gastric ulcer hemorrhage or perforation present EGD 08/12/2024 11:23 AM REEXAMINER POCT GLUCOSE DEVICE Routine 08/12/2024 11:14 AM REEXAMINER DIFFERENTIAL AUTO Routine 08/11/2024 12:22 PM REEXAMINER LUQ pain TISSUE TRANSGLUTAMINASE, IGA Routine 12:22 PM REEXAMINER LUQ pain IGA Routine 08/11/2024 12:22 PM REEXAMINER LUQ pain LIPASE Routine 08/11/2024 12:22 PM REEXAMINER LUQ pain CRP (ACUTE PHASE) Routine 08/11/2024 12:22 PM REEXAMINER LUQ pain CBC WITH AUTO DIFFERENTIAL Routine 08/11 12:22 PM REEXAMINER LUQ pain IRON PROFILE W/ IBC Routine 08/11/2024 12:22 PM REEXAMINER Anemia, unspecified type FERRITIN Routine 08/11/2024 12:22 PM REEXAMINER Anemia, unspecified type FOLATE Routine 08/11/2024 12:22 PM REEXAMINER Anemia, unspecified type VITAMIN B12 Routine 08/11/2024 12:22 PM REEXAMINER Anemia, unspecified type EGFR Routine 08/05/2024 3:53 PM REEXAMINER Type 2 diabetes mellitus with hyperglycemia, with long-term current use of insulin (HCC) DIFFERENTIAL AUTO Routine 08/05/2024 3:53 PM REEXAMINER Type 2 diabetes mellitus with hyperglycemia, with long-term current use of insulin (HCC) Dark stools TSH Routine 08/05/2024 3:53 PM REEXAMINER Type 2 diabetes mellitus with hyperglycemia, with long-term current use of insulin (HCC) T3, FREE Routine 08/05/2024 3:53 PM REEXAMINER Type 2 diabetes mellitus with hyperglycemia, with long-term current use of insulin (HCC) T4, FREE Routine 08/05/2024 3:53 PM REEXAMINER Type 2 diabetes mellitus with hyperglycemia, with long-term current use of insulin (HCC) THYROID PEROXIDASE ANTIBODY Routine 07/26 3:53 PM REEXAMINER Type 2 diabetes mellitus with hyperglycemia, with long-term current use of insulin (HCC) THYROID STIMULATING IMMUNOGLOBULIN Routine 08/05/2024 3:53 PM REEXAMINER Type 2 diabetes mellitus with hyperglycemia, with long-term current use of insulin (HCC) TSH RECEPTOR ANTIBODY Routine 08/05/2024 3:53 PM REEXAMINER Type 2 diabetes mellitus with hyperglycemia, with long-term current use of insulin (HCC) COMPREHENSIVE METABOLIC PANEL Routine 3:53 PM REEXAMINER Type 2 diabetes mellitus with hyperglycemia, with long-term current use of insulin (HCC) ALBUMIN CREATININE RATIO, URINE Routine 08/05/2024 3:53 PM REEXAMINER Type 2 diabetes mellitus with hyperglycemia, with long-term current use of insulin (HCC) LIPID PANEL Routine 08/05/2024 3:53 PM REEXAMINER Type 2 diabetes mellitus with hyperglycemia, with long-term current use of insulin (HCC) CBC WITH AUTO DIFFERENTIAL Routine 08/05 3:53 PM REEXAMINER Type 2 diabetes mellitus with hyperglycemia, with long-term current use of insulin (HCC) Dark stools AMYLASE Routine 08/05/2024 3:53 PM REEXAMINER Left upper quadrant abdominal pain LIPASE Routine 08/05/2024 3:53 PM REEXAMINER Left upper quadrant abdominal pain POCT HEMOGLOBIN A1C Routine 08/05/2024 3:02 PM REEXAMINER Type 2 diabetes mellitus with hyperglycemia, with long-term current use of insulin (HCC) POCT GLUCOSE Routine 08/05/2024 3:02 PM REEXAMINER Type 2 diabetes mellitus with hyperglycemia, with long-term current use of insulin (HCC) COLONOSCOPY 03/03/2018 1:31 PM CDT HEPATITIS C ANTIBODY Routine 02/13/2018 12:27 PM CDT Abnormal LFTs from Last 3 Months or Most Recently Relevant to Health Maintenance Results * CT Abdomen W WO Contrast (08/18/2024 11:28 AM REEXAMINER) Anatomical Region Laterality Modality Body N/A Computed Tomogra phy 08/18/2024 12:2 2 PM REEXAMINER Addenda Addendum by Heber Webb MD on 08/18/2024 1:04 PM REEXAMINER ADDENDUM: There is a 3 mm nonobstructing calculus in the upper pole of the right kidney. This is unchanged from previous. Electronically signed by: Heber Webb M.D. Impressions 08/18/2024 12:22 PM REEXAMINER 1. Cholecystectomy. 2. Small renal cysts are stable. 3. No inflammatory lesion is seen. Electronically signed by: Heber Webb M.D. Narrative 08/18/2024 12:22 PM REEXAMINER EXAMINATION: CT ABDOMEN W WO CONTRAST DATE: [...] seen. Electronically signed by: Heber Webb M.D. [facility] Sotero Bey MD IMG CT PROCEDURES E dited Result - Final * US Abdomen Complete (08/18/2024 10:48 AM REEXAMINER) Anatomical Region Laterality Modality Abdomen N/A Ultrasound 08/18/2024 1:02 PM REEXAMINER Impressions 08/18/2024 1:02 PM REEXAMINER 1. Status post cholecystectomy. 2. The liver and bile ducts appear normal. 3. The pancreas, spleen and kidneys appear normal. 4. No evidence of ascites. Electronically signed by: Heber Webb M.D. Narrative 08/18/2024 1:02 PM REEXAMINER EXAM: US ABDOMEN COMPLETE DATE: 08/18/2024 11:00 [...] ascites. Electronically signed by: Heber Webb M.D. us Supraja Sotero Bey MD IMG US PROCEDURES F inal Result * Surgical pathology (08/12/2024 1:55 PM REEXAMINER) Tissue (Esophageal biopsy) 08/12/2024 12:06 PM REEXAMINER Tissue (Esophageal biopsy) 08/12/2024 12:13 PM REEXAMINER Tissue (Esophageal biopsy) 08/12/2024 12:16 PM REEXAMINER Narrative PATHOLOGY - 08/13/2024 7:07 PM REEXAMINER [facility] results best viewed via link to PDF [facility] Department of Pathology [address] [place] [address] Note to Patients: This report may [...] Final Report Patient Name: TETE RODRIGUEZ Address: [address] [place] [address], [place] [address] Gender: F : 1965 (Age: 59) Service: Gastro Location: GI Lab [facility] #: [id number] Patient Type: [facility] Taken: 08/12/2024 Received: 08/12/2024 Accessioned: 08/12/2024 Reported: [...] 1 mm. All in [facility]. [facility]. Yemi Bell.Brandon/Erika Colón M.D. REPORT IMAGES AND SCANNED DOCUMENTS, IF INCLUDED, ONLY VIEWABLE IN PDF VERSION OF REPORT The performance characteristics of some immunohistochemical stains, fluorescence in-situ hybridization tests and immunophenotyping by flow cytometry cited in this report (if any) were determined by the Surgical Pathology Department at [facility] as part of an ongoing software quality test engineer program and in compliance with federally mandated [...] characteristics determined by the Surgical Pathology Department [facility]. It has not been cleared or approved by the U. S. Food and Drug Administration. Note for decalcified specimens: This assay has not been validated on decalcified tissues. Results should be interpreted with caution given the possibility of false negativity on decalcified specimens Faiza Snow MD LAB PATHOLOGY ORDERABLES Fi nal Result [facility] [address] [place] [address] * POCT glucose (08/12/2024 12:33 PM REEXAMINER) Glucose, POC 190 70 - 199 mg/dL Blood 08/12/2024 12:3 3 PM REEXAMINER 08/12/2024 12:33 PM REEXAMINER Faiza Snow MD LAB POCT ORDERABLES - DEVIC E Final Result [facility] [address] Department [place] [employer] [place] [address] * EGD (08/12/2024 11:23 AM REEXAMINER) Anatomical Region Laterality Modality Other Narrative Procedure Note Faiza Snow MD - 08/12/2024 11:23 AM CST [facility] Endoscopy Lab Patient Name: Tete Rodriguez Procedure [...] CASSIA (Anesthesia Staff), Lakeisha Forrest RN, Sebastián, Manager Knowledge Referring MD: Faiza Snow M.D. Medicines: Monitored [...] decrease todaily. Procedure Code(s): --- Professional --- 88231, Esophagogastroduodenoscopy, flexible, transoral; with biopsy, single or multiple Diagnosis Code(s): --- Professional --- K29.70, Gastritis, unspecified, without bleeding K44.9, Diaphragmatic hernia without obstruction or gangrene K22.89, Other specified disease of esophagus R10.12, Left upper quadrant pain K30, Functional dyspepsia CPT copyright 2020 [employer]. All rights reserved. The codes documented in this report are preliminary and upon sodium chlorite operator reviewmay be revised to meet current compliance requirements. Dr. Faiza Snow MD [facility] Faiza Snow M.D. 08/12/2024 12:32:30 PM Number of Addenda: 0 Note Initiated On: 08/12/2024 11:23 AM Faiza Snow MD ENDOSCOPY PROCEDURES Edited Result - Final * (ABNORMAL) POCT glucose (08/12/2024 11:14 AM REEXAMINER) Glucose, POC 297(H) 70 - 199 mg/dL Blood 08/12/2024 11:1 4 AM REEXAMINER 08/12/2024 11:14 AM REEXAMINER Faiza Snow MD LAB POCT ORDERABLES - DEVIC E Final Result [facility] [address] Department [place] [address] * Differential, auto (08/11/2024 12:22 PM REEXAMINER) Neutrophil abs 5.7 1.5 - 6.5 K/cumm Imm gran abs 0.1 0.0 - 0.1 K/cumm [facility] Lymphocyte abs 1.9 0.8 - 3.3 K/cumm [facility] Monocyte abs 0.5 0.2 - 0.8 K/cumm [facility] Eosinophil abs 0.1 0.0 - 0.5 K/cumm [facility] Basophil abs 0.1 0.0 - 0.1 K/cumm [facility] Neutrophil pct 67.8 % [facility] Comment: Interpretive Data Percent cell count reference ranges are not reported, since discordance with absolute values may lead to misinterpretation of CBC data. Current Interpretive Data was last revised on 2017. Imm gran pct 1.3 % [facility] Comment: Interpretive Data Percent cell count reference ranges are not reported, since discordance with absolute values may lead to misinterpretation of CBC data. Current Interpretive Data was last revised on 2017. Lymphocyte pct 23.0 % [facility] Comment: Interpretive Data Percent cell count reference ranges are not reported, since discordance with absolute values may lead to misinterpretation of CBC data. Current Interpretive Data was last revised on 2017. Monocyte pct 6.0 % [facility] Comment: Interpretive Data Percent cell count reference ranges are not reported, since discordance with absolute values may lead to misinterpretation of CBC data. Current Interpretive Data was last revised on 2017. Eosinophil pct 1.3 % [facility] Comment: Interpretive Data Percent cell count reference ranges are not reported, since discordance with absolute values may lead to misinterpretation of CBC data. Current Interpretive Data was last revised on 2017. Basophil pct 0.6 % [facility] Comment: Interpretive Data Percent cell count reference ranges are not reported, since discordance with absolute values may lead to misinterpretation of CBC data. Current Interpretive Data was last revised on 2017. Blood 08/11/2024 12:2 2 PM REEXAMINER 08/11/2024 7:11 PM REEXAMINER us Faiza Snow MD LAB BLOOD ORDERABLES Final Result [facility]ARY [facility] [address] [facility] [employer] [place] [address] * (ABNORMAL) Iron profile w/ IBC (08/11/2024 12:22 PM REEXAMINER) Pathologist [facility] Iron 51 35 - 145 mcg/dl TIBC 325 250 - 400 mcg/dL [facility] Transferrin saturation 16(L) 20 - 50 % [facility] Blood 08/11/2024 12:2 2 PM REEXAMINER 08/11/2024 7:11 PM REEXAMINER us Faiza Snow MD LAB BLOOD ORDERABLES Final Result Performing Organization Address [facility] Co de Phone Number MARY KAY [address] [facility] [employer] [place] [address] * (ABNORMAL) CBC with auto differential (08/11/2024 12:22 PM REEXAMINER) Pathologist [facility] WBC 8.4 3.8 - 9.9 K/cumm Hgb 10.5(L) 11.9 - 15.5 g/dL [facility] CH Hct 34.6(L) 35.6 - 45.5 % [facility] Plt 298 150 - 400 K/cumm [facility] MPV 10.4 9.1 - 12.3 fL CERNER [...] [facility]ER CH Blood 08/11/2024 12:2 2 PM REEXAMINER 08/11/2024 7:11 PM REEXAMINER Faiza Snow MD LAB BLOOD ORDERABLES Final Result Performing Organization Address City/[facility] Co de Phone Number MARY KAY [address] [address] [facility] [employer] [place] [address] * Tissue transglutaminase IgA (TGG-IgA Ab) (08/11/2024 12:22 PM REEXAMINER) TTG ab, IgA <0.5 <=14.9 units/mL Comment: Interpretive data Negative: <15 units/mL Positive: > or equal to 15 units/mL Current interpretive data was last revised on 2016. Testing performed by: [facility], [address] [place]., [address] Blood 08/11/2024 12:2 2 PM REEXAMINER 08/12/2024 10:00 AM REEXAMINER Faiza Snow MD LAB BLOOD ORDERABLES Final Result Performing Organization Address [facility] Co de Phone Number NEVAEHMAGDI [address] Department [employer] [place] [address] * CRP (acute phase) (08/11/2024 12:22 PM REEXAMINER) CRP 9.2 <=10.0 mg/L Blood 08/11/2024 12:2 2 PM REEXAMINER 08/11/2024 7:11 PM REEXAMINER Faiza Snow MD LAB BLOOD ORDERABLES Final Result Performing Organization Address City/[facility]/ZIP Co de Phone Number MARY KAY [address] [facility] [employer] [place] [address] * Lipase (08/11/2024 12:22 PM REEXAMINER) Lipase 16 10 - 99 Units/L Blood 08/11/2024 12:2 2 PM REEXAMINER 08/11/2024 7:11 PM REEXAMINER us Faiza Snow MD LAB BLOOD ORDERABLES Final Result Performing Organization Address City/[facility]/ZIP Co de Phone Number MARY KAY [address] [facility] [employer] [place] [address] * IgA (08/11/2024 12:22 PM REEXAMINER) Immunoglobulin A 312 70 - 400 mg/dL Blood 08/11/2024 12:2 2 PM REEXAMINER 08/11/2024 7:11 PM REEXAMINER us Faiza Snow MD LAB BLOOD ORDERABLES Final Result Performing Organization Address [facility] Co de Phone Number MARY KAY [address] [facility] [employer] [place] [address] * Folate (08/11/2024 12:22 PM REEXAMINER) Folic acid >20.0 >=5.0 ng/mL Blood 08/11/2024 12:2 2 PM REEXAMINER 08/11/2024 7:11 PM REEXAMINER us Faiza Snow MD LAB BLOOD ORDERABLES Final Result Performing Organization Address [facility] Co de Phone Number MARY KAY [address] Department [employer] [place] [address] * (ABNORMAL) Ferritin (08/11/2024 12:22 PM REEXAMINER) Ferritin 172(H) 15 - 150 ng/mL Blood 08/11/2024 12:2 2 PM REEXAMINER 08/11/2024 7:11 PM REEXAMINER us Faiza Snow MD LAB BLOOD ORDERABLES Final Result Performing Organization Address [facility] Co de Phone Number MARY KAY [address] Department [employer] [place] [address] * (ABNORMAL) Vitamin B12 (08/11/2024 12:22 PM REEXAMINER) Vitamin B12 2,623(H) 230 - 1,250 pg/mL Blood 08/11/2024 12:2 2 PM REEXAMINER 08/11/2024 7:11 PM REEXAMINER us Faiza Snow MD LAB BLOOD ORDERABLES Final Result [facility] [address] [place] [address] * eGFR (08/05/2024 3:53 PM REEXAMINER) Pathologist [facility] eGFR 83 >=60 mL/min/1. 73 m2 Comment: [...] last reviewed 2021. Blood 08/05/2024 3:53 PM REEXAMINER 08/05/2024 6:49 PM REEXAMINER us Bozena Bey MD LAB BLOOD ORDER[place] [address] [address] Department [employer] [place], [place] [id number] * Differential, auto (08/05/2024 3:53 PM REEXAMINER) Neutrophil abs 5.6 1.5 - 6.5 K/cumm Imm gran abs 0.0 0.0 - 0.1 K/cumm [facility] Lymphocyte abs 2.2 0.8 - 3.3 K/cumm [facility] Monocyte abs 0.5 0.2 - 0.8 K/cumm [facility] Eosinophil abs 0.1 0.0 - 0.5 K/cumm [facility] Basophil abs 0.1 0.0 - 0.1 K/cumm [facility] Neutrophil pct 65.6 % [facility] Comment: Interpretive Data Percent cell count reference ranges are not reported, since discordance with absolute values may lead to misinterpretation of CBC data. Current Interpretive Data was last revised on 2017. Imm gran pct 0.5 % [facility] Comment: Interpretive Data Percent cell count reference ranges are not reported, since discordance with absolute values may lead to misinterpretation of CBC data. Current Interpretive Data was last revised on 2017. Lymphocyte pct 26.1 % [facility] Comment: Interpretive Data Percent cell count reference ranges are not reported, since discordance with absolute values may lead to misinterpretation of CBC data. Current Interpretive Data was last revised on 2017. Monocyte pct 5.9 % [facility] Comment: Interpretive Data Percent cell count reference ranges are not reported, since discordance with absolute values may lead to misinterpretation of CBC data. Current Interpretive Data was last revised on 2017. Eosinophil pct 1.3 % [facility] Comment: Interpretive Data Percent cell count reference ranges are not reported, since discordance with absolute values may lead to misinterpretation of CBC data. Current Interpretive Data was last revised on 2017. Basophil pct 0.6 % [facility] Comment: Interpretive Data Percent cell count reference ranges are not reported, since discordance with absolute values may lead to misinterpretation of CBC data. Current Interpretive Data was last revised on 2017. Blood 08/05/2024 3:53 PM REEXAMINER 08/05/2024 6:36 PM REEXAMINER us Bozena Bey MD LAB BLOOD ORDERABLE S Final Result MARY KAY BRINK [address] Department [place] [address] * TSH receptor antibody (08/05/2024 3:53 PM REEXAMINER) [facility] TSH receptor ab 1.32 0.00 - 1.75 IUnits/L [facility] Comment: ADDITIONAL INFORMATION At a decision limit of 1.75 IU/L, this assay has 97% sensitivity and 99% specificity for detection of Graves' disease. In healthy individuals and in patients with thyroid disease without diagnosis of Graves' disease, the upper limit of anti-TSHR values are 1.22 IU/L and 1.58 IU/L, respectively (97.5th percentiles). Test Performed by: [place] [address] [employer] Operator: Rony Ortega Ph.D.; CLIA# [id number] Blood 08/05/2024 3:53 PM REEXAMINER 08/05/2024 9:10 PM REEXAMINER Bozena Bey MD LAB BLOOD ORDERABLE S Final Result MARY KAY BRINK [address] Department [place] [address] [facility] * (ABNORMAL) CBC with auto differential (08/05/2024 3:53 PM REEXAMINER) [facility] WBC 8.6 3.8 - 9.9 K/cumm Hgb 10.7(L) 11.9 - 15.5 g/dL [facility] Hct 33.6(L) 35.6 - 45.5 % [facility] Plt 304 150 - 400 K/cumm [facility] MPV 10.5 9.1 - 12.3 fL [facility] RBC 3.90 3.90 - 5.20 M/cumm [facility] MCV 86.2 81.3 - 96.4 fL [facility] MCH 27.4 27.1 - 33.3 pg [facility] MCHC 31.8(L) 32.3 - 35.7 g/dL [facility] CH RDW CV 12.4 11.1 - 14.9 % [facility] CH RDW SD 39.2 35.7 - 48.1 fL [facility] NRBC abs 0.00 0.00 - 0.01 K/cumm [facility] Blood 08/05/2024 3:53 PM REEXAMINER 08/05/2024 6:36 PM REEXAMINER Bozena Bey MD LAB BLOOD ORDERABLE S Final Result Performing Organization Address [facility] Co de Phone Number NEVAEHMAGDI BRINK [address] Department [employer] [place] [address] * (ABNORMAL) Thyroid peroxidase antibody (TPO) (08/05/2024 3:53 PM REEXAMINER) Anti Thyroid Peroxidase 166(H) <=34 IUnits/mL Comment: ATPO Interpretive Data Results may be up to 28% higher in patients receiving Itraconazole. Current interpretive data was last revised 2020. Testing performed by: [facility], [address] [facility], [place]., [address] Blood 08/05/2024 3:53 PM REEXAMINER 08/06/2024 9:43 AM REEXAMINER Bozena Bey MD LAB BLOOD ORDERABLE S Final Result Performing Organization Address City/[facility] Co de Phone Number NEVAEHMAGDI BRINK [address] Department [place] [employer] [place] [address] * Thyroid stimulating immunoglobulin (08/05/2024 3:53 PM REEXAMINER) TSIG <1.0 <=1.3 [facility] Comment: Test Performed by: [facility] [place] [address] [place] [address] Combat Systems Operator: Rony Ortega Ph.D.; CLIA# [id number] Blood 08/05/2024 3:53 PM REEXAMINER 08/05/2024 9:09 PM REEXAMINER Bozena Bey MD LAB BLOOD ORDERABLE S Final Result Performing Organization Address [facility] Co de Phone Number MARY KAY BRINK [address] [facility] [employer] [place] [address] [facility] * Albumin Creatinine Ratio, Urine (08/05/2024 3:53 PM REEXAMINER) Albumin Ur <12.0 mg/L Comment: Interpretive Data No reference range established. Current interpretive data was last revised 2019. Creatinine Ur 127.6 mg/dL [facility] Comment: Interpretive Data No reference range established. Current interpretive data was last revised 2019. Albumin Creatinine Ratio, Ur <9 1 - 29 mg/g [facility] Urine 08/05/2024 3:53 PM REEXAMINER 08/05/2024 6:37 PM REEXAMINER us Bozena Bey MD LAB URINE ORDERABLE S Final Result Performing Organization Address [facility] Co de Phone Number MARY KAY KEENA [address] [facility] [employer] [place] [address] * T3, free (08/05/2024 3:53 PM REEXAMINER) Pathologist [facility] Free T3 2.7 2.0 - 4.4 pg/mL Blood 08/05/2024 3:53 PM REEXAMINER 08/05/2024 6:36 PM REEXAMINER Bozena Bey MD LAB BLOOD ORDERABLE S Final Result Performing Organization Address [facility] Co de Phone Number MARY KAY KEENA [address] [facility] [employer] [place] [address] * (ABNORMAL) TSH (08/05/2024 3:53 PM REEXAMINER) Thyroid Stimulating Hormone 6.06(H) 0.30 - 4.20 mcIUnit/mL Blood 08/05/2024 3:53 PM REEXAMINER 08/05/2024 6:36 PM REEXAMINER us Bozena Bey MD LAB BLOOD ORDERABLE S Final Result MARY KAY BRINK [address] [facility] [employer] [place] [address] * T4, free (08/05/2024 3:53 PM REEXAMINER) Free T4 1.10 0.90 - 1.70 ng/dL Blood 08/05/2024 3:53 PM REEXAMINER 08/05/2024 6:36 PM REEXAMINER us Bozena Bey MD LAB BLOOD ORDERABLE S Final Result Performing Organization Address [facility] Co de Phone Number MARY KAY KEENA [address] [facility] [employer] [place] [address] * Lipase (08/05/2024 3:53 PM REEXAMINER) Lipase 17 10 - 99 Units/L Blood 08/05/2024 3:53 PM REEXAMINER 08/05/2024 6:36 PM REEXAMINER us Bozena Bey MD LAB BLOOD ORDERABLE S Final Result Performing Organization Address [facility] Co de Phone Number MARY KAY BRINK [address] [facility] [employer] [place] [address] * Amylase (08/05/2024 3:53 PM REEXAMINER) Amylase 71 30 - 99 Units/L Blood 08/05/2024 3:53 PM REEXAMINER 08/05/2024 6:36 PM REEXAMINER us Bozena Bey MD LAB BLOOD ORDERABLE S Final Result Performing Organization Address City/[facility]/ZIP Co de Phone Number MARY KAY BRINK [address] [facility] [employer] [place] [address] * Lipid panel (08/05/2024 3:53 PM REEXAMINER) Cholesterol 175 30 - 199 mg/dL Comment: [...] 2018. Triglycerides 117 <=149 mg/dL MARY KAY BRINK Comment: Interpretive Data [...] 3. Anthony Delcid et al. [place] Cardiol. 2019December 24;5(5):540-548. doi: 10.1001/jamacardio.2020.0013 Current Interpretive Data was last revised on 2024. Non-HDL Cholesterol 105 mg/dL [facility] Comment: Interpretive Data Ages < or [...] 2 [facility] Blood 08/05/2024 3:53 PM REEXAMINER 08/05/2024 6:36 PM REEXAMINER us Bozena Bey MD LAB BLOOD ORDERABLE S Final Result [facility] [address] Department [place] [address] * Comprehensive metabolic panel (08/05/2024 3:53 PM REEXAMINER) Sodium 137 135 - 145 mmol/L Potassium, pl 3.9 3.3 - 4.9 mmol/L [facility] Chloride 99 97 - 110 mmol/L [facility] CO2 24 22 - 32 mmol/L [facility] Anion gap 14 2 - 15 mmol/L [facility] BUN 15 6 - 25 mg/dL [facility] Creatinine 0.81 0.60 - 1.10 mg/dL [facility] Glucose 182 70 - 199 mg/dL [facility] Comment: Interpretive Data Fasting glucose >/= 126 [...] classification and Diagnosis of Diabetes Diabetes Care 2021; 46: S19-S40. Current interpretive data was last revised 2022. Calcium 9.6 8.5 - 10.3 mg/dL [facility] Bilirubin, total 0.2 0.1 - 1.2 mg/dL [facility] Protein, pl 7.6 6.5 - 8.5 g/dL [facility] Albumin 4.4 3.5 - 5.0 g/dL [facility] Alk phos 64 40 - 130 Units/L [facility] ALT 13 7 - 45 Units/L [facility] AST 24 10 - 45 Units/L [facility] Blood 08/05/2024 3:53 PM REEXAMINER 08/05/2024 6:36 PM REEXAMINER Bozena Bey MD LAB BLOOD ORDERABLE S Final Result [facility] [address] Department [place] [address] * POCT hemoglobin A1c (08/05/2024 3:02 PM REEXAMINER) Hemoglobin A1C, POC 9.1 4.0 - 5.6 % Blood 08/05/2024 3:02 PM REEXAMINER Bozena Bey MD POINT OF CARE TEST ORDERABLES Final Result * POCT glucose (08/05/2024 3:02 PM REEXAMINER) Glucose Blood, POC 208 mg/dL Blood 08/05/2024 3:02 PM REEXAMINER us Bozena Bey MD POINT OF CARE TEST ORDERABLES Final Result * COLONOSCOPY (03/03/2018 1:31 PM CDT) Anatomical Region Laterality Modality Other Narrative Procedure Note Yonny Prieto MD - 03/03/2018 1:31 PM CDT [facility] Endoscopy [facility] Patient Name: Tete Rodriguez Procedure [...] passedunder direct vision. The Colonoscope CF-Q180 [id number] introduced through the anus and advanced to the the cecum, identified by the appendiceal orifice,ileocecal valve and palpation. The colonoscopy was performedwith ease. The patient tolerated the procedure well. The quality of the bowel preparation was evaluated using the BBPS ([place] Bowel Preparation Scale) withscores of: Right Colon [...] anti-inflammatory drugs. Procedure Code(s): --- Professional --- 78650, Colonoscopy, flexible; diagnostic, including collection of specimen(s) by brushing or washing,when performed (separate procedure) Diagnosis Code(s): --- Professional --- K62.89, Other specified diseases of anus andrectum D50.9, Iron deficiency anemia, unspecified K57.30, Diverticulosis of large intestine without perforation or abscess without bleeding CPT copyright 2017 [employer]. All rights reserved. The codes documented in this report are preliminary and upon sodium chlorite operator reviewmay be revised to meet current compliance requirements. Electronically signed by Yonny Prieto MD Yonny Prieto MD 03/03/2018 2:11:45 PM Number of Addenda: 0 Note Initiated On: 03/03/2018 1:31 PM Yonny Prieto MD ENDOSCOPY PROCEDURES Final Resul t * Hepatitis C antibody (02/13/2018 12:27 PM CDT) Hep C Ab Negative Negative [facility] Blood specimen (specimen) 02/13/2018 12:27 PM CDT 02/13/2018 5:42 PM CDT Narrative MARY KAY - 02/13/2018 6:47 PM CDT Yonny Prieto MD LAB MICROBIOLOGY - GENERAL ORDER BRYCE Final Result MARY KAY [address] [facility] Department [place] [address] from Last 3 Months or Most Recently Relevant to Health Maintenance [place] [address] [place] [address] [facility] [place] [address] Advance Directives For more information, please contact: [phone] * Full Code (Latest Code Status on File) Date Activated Date Inactivated Comments 05/04/2023 9:25 PM 05/06/2023 7:19 PM * Full Code Date Activated Date Inactivated Comments 01/02/2018 7:37 AM 01/08/2018 2:35 PM Care Teams Catering Administrative Assistant Relationship Specialty Start Date End Date No, Physician PCP - General 01/16/24 Mir Floyd MD [address] [facility] [address] [address] Consulting Physician Interventional Cardiology 05/06/23 [place] [address] [address] [place] [address] Consulting Physician Endocrinology 05/06/23 Will Lundberg MD [address] [place] [address] [place] [address] Referring Physician Internal Medicine 05/06/23
--- OUTSIDE RECORDS SUMMARY | 2024-10-05 11:44 | XMS_ITS | Referral Summary ---
Author Organization [facility] [employer] Address [address] [address] Care Team Providers Care Electrician Control Equipment Name Role Phone Vadim Rivers MD Unavailable [phone] Palma Gilbert MD Primary Care Provider [phone] [facility],non-owned Affiliates and Associated Physician Practices is amultiple site organization consisting of ambulatory clinics and hospital sitesin [place], [place], [place]. This disclosure is being madepursuant to the Care Everywhere program and may not contain all information available regarding this patient. Last updated 18.[facility] [employer] Allergies Active Allergy Reactions Criticality Noted Date [...] Multiple Vitamin (MULTI-VITAMIN PO) Take by mouth. A ctive empagliflozin (JARDIANCE) 10 MG tablet Take 10 [...] Mass Index 34.04 11/26/2017 7:48 PM CDT Functional Status Functional Status Response Date of Assess ment Is person deaf or have serious hearing difficult y? No 11/26/2017 Is person blind or have serious difficulty seein g? No 11/26/2017 Does person have serious dif ficulty walking/climbing stairs? No 11/26/2017 Does person have difficulty dressing/bathing? No 11/26/2017 Does person have difficulty doing errands alone? No 11/26/2017 Cognitive Status Response Date of Assessm ent Does person have difficulty concentrating/remembering/making decisions? No 11/26/2017 Plan of Treatment Not on file Procedures [...] participate in the care of your patient. [facility] utilizes [employer] as a reminder system to notify patients of their next recommended mammogram. 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
== END 2024-10-05 11:33 | disposition home or self-care (01) ==
PROVIDERS: Emergency Provider Nurse Practitioner Family
DX: B34.9 Viral infection, unspecified (principal); E03.9 Hypothyroidism, unspecified; E11.9 Type 2 diabetes mellitus without complications; I10 Essential (primary) hypertension; Z20.822 Contact with and (suspected) exposure to COVID-19
CPT/HCPCS: 87426; 87804; 99213; G0463

== ENCOUNTER 2024-10-14 13:55 | Emergency (ER) | payer OTHER, SELFPAY ==
--- NOTE | 2024-10-14 14:04 | ED.URI ---
HPI - URI/Sore Throat General Chief Complaint: Upper Respiratory Infection Stated Complaint: Sore Throat Time Seen by Provider: 10/14/24 14:20 Source: patient, RN notes reviewed and old records reviewed Mode of arrival: ambulatory Limitations: no limitations History of Present Illness HPI Narrative: Patient presents with complaints of sore throat for couple of weeks. She reports that she had URI symptoms a couple of weeks ago that have since resolved, she states that sore throat has grown worse over the past couple of weeks. She reports that she is able to swallow her own saliva, but even this now hurts. She also reports white coating to the tongue that is not normally there and a hoarse voice Related Data Home Medications ?Medication ?Instructions ?Recorded ?Confirmed ?Last Taken ?Type gabapentin 100 mg capsule 100 mg PO DAILY 04/21/23 03/25/24 04/20/23 09:00 History lisinopril 20 1 tablet PO DAILY 04/21/23 03/25/24 04/20/23 09:00 History mg-hydrochlorothiazide 12.5 mg tablet omeprazole 40 mg capsule,delayed 40 mg PO DAILY 03/25/24 03/25/24 Unknown History release propranolol 20 mg tablet 20 mg PO BID 03/25/24 03/25/24 Unknown History Allergies Allergy/AdvReac Type Severity Reaction Status Date / Time No Known Allergies Allergy Unknown Verified 10/14/24 13:58 Review of Systems Review of Systems: All systems reviewed & are unremarkable except as noted in HPI and below Constitutional: Constitutional: Reports no additional constitutional complaints ENT: Reports system reviewed and no additional complaints, except as documented, Reports change in voice and Reports sore throat Cardiovascular: Cardiovascular: Reports no additional cardiovascular complaints Respiratory: Respiratory: Reports no additional respiratory complaints Gastrointestinal: Gastrointestinal: Reports no additional gastrointestinal complaints [facility] Past Medical History Medical History Hypothyroidism Diabetes HTN (hypertension) Surgical History Surgical History Hx of cholecystectomy Family History Family History Mother Diabetes mellitus Hypertension Father Congestive heart failure Social History Social History Smoking status: Never smoker Alcohol intake: never Substance use: never Lack of Transportation: No Lack of Food: Never True Current Housing: I Have Housing Concerned About Future Housing: No Difficulty Paying Gas/Electric Bills: No Difficulty Paying for Meds: No Currently Unemployed: No Education: Bachelor's Degree Difficulty w/ Childcare or Family Care: No Living arrangements: with family Gender identity (if verbalized by the patient): Female Spiritual care concerns: No Comments At the time of my signature, I reviewed and agree with the nursing past medical, surgical, social, and family history. There is no relevant family history pertinent to the patient complaint. Exam Const: General: cooperative, no acute distress, alert and awake Orientation/consciousness: oriented to person, oriented to place and oriented to time HENMT: Head: normal to inspection Mouth: Yes moist mucous membranes abnormal and Yes other (White coated tongue, flecks of white on buccal mucosa) Throat: posterior oropharynx abnormal other (White flecks) Resp: Effort & Inspection: normal respiratory effort and able to speak in complete sentences Auscultation: clear to auscultation bilaterally, no crackles, no rales, no rhonchi and no wheezes Cardio: Palpation: normal PMI Rate: regular rate Rhythm: regular rhythm Heart sounds: S1 normal heart sound present and S2 normal heart sound present Neuro: General: oriented to person, oriented to place and oriented to time Cranial nerves: Yes CN's II-XII intact bilaterally Psych: Appearance: grossly normal Thought process: Normal thought process present Insight: Good insight present (Psych) Judgement: Good judgement present (Psych) Course Course Level of Care: Express Care Visit Vital Signs Vital signs: Reviewed MDM - URI/Sore Throat MDM Narrative Medical decision making narrative: Negative strep, culture pending. Exam is more consistent with oral thrush. Will treat as such. Patient advised to follow-up primary care provider. Emergency department for new or worse symptoms. Discharge instructions reviewed with patient, as well as provided in writing per nursing staff. The instructions also include specific and strict return/GO TO THE ER as well as f/u information. All questions have been answered, and the patient deny any further questions with discharge and discharge plan. Some parts of this dictation were generated by voice recognition software and may contain typographical and/or grammatical inaccuracies. Differential Diagnosis Differential diagnosis: Likely viral infection, influenza and pharyngitis Medical Records Attestation: I reviewed the patient's medical records. Lab Data Attestation: I reviewed the patient's lab results. Discharge Plan Discharge Clinical Impression: Thrush, oral Patient Disposition: Home, Self-Care Condition: Stable Instructions: Antibiotic Form, Oral Candidiasis (ED) Additional Instructions: Take medications as prescribed. Follow with primary care provider. Emergency department for new or worse symptoms Patient Language: Slovenian Prescriptions: New nystatin 100,000 unit/mL suspension 5 ml PO QID 14 Days Qty: 280 0RF Rx Instructions: swish and swallow No Action prednisone 20 mg tablet 40 mg PO DAILY 4 Days Qty: 8 0RF omeprazole 40 mg capsule,delayed release(DR/EC) 40 mg PO DAILY propranolol 20 mg tablet 20 mg PO BID gabapentin 100 mg capsule 100 mg PO DAILY lisinopril-hydrochlorothiazide 20-12.5 mg tablet 1 tablet PO DAILY aspirin 81 mg Tablet,Delayed Release (Dr/Ec) 81 mg PO QAM 30 Days Qty: 30 0RF rosuvastatin [Crestor] 10 mg Tablet 10 mg PO QAM 30 Days Qty: 30 0RF insulin glargine [Lantus Solostar U-100 Insulin] 100 unit/mL (3 mL) insulin pen 35 unit subcut QAM 30 Days Qty: 10.5 0RF insulin aspart U-100 [Novolog FlexPen U-100 Insulin] 100 unit/mL (3 mL) insulin pen 5 unit subcut TID 30 Days Qty: 4.5 0RF orphenadrine citrate 100 mg tablet extended release 100 mg PO Q12H PRN (Reason: spasms) Qty: 20 0RF diclofenac potassium 50 mg tablet 50 mg PO TID PRN (Reason: pain) Qty: 30 0RF Follow-up/Referrals: Vladimir,Palma Bowser MD [Primary Care Provider] - 2 Weeks Time of Disposition: 14:40
[2024-10-14 14:06] VITALS: BP 147/68; PULSE 103; RESP 18; TEMP 36.6; O2SAT 100
[2024-10-14 14:26] LABS: EDSTREPNEGPOS1 Negative (Negative)
== END 2024-10-14 14:45 | disposition home or self-care (01) ==
PROVIDERS: Emergency Provider Nurse Practitioner Family; PCP Family Medicine
DX: B37.0 Candidal stomatitis (principal); E11.9 Type 2 diabetes mellitus without complications; I10 Essential (primary) hypertension; E03.9 Hypothyroidism, unspecified
CPT/HCPCS: 87081; 87880; 99213; G0463